=== PATIENT | male | born 1965 | race Caucasian/White ===

== ENCOUNTER 2022-06-08 09:23 | Outpatient (CLI) | payer MEDICARE, SELFPAY ==
[2022-06-08 19:06] LABS: Basophils Absolute Auto 0.1 K/mm3 (0.0-0.1); Basophils Percent Auto 0.7 % (0.2-1.2); Eosinophils Absolute Auto 0.1 K/mm3 (0-0.3); Eosinophils Percent Auto 1.5 % (0-4.4); Hematocrit 50.8 % (42.0-52.0); Hemoglobin 16.7 g/dL (14.0-18.0); Immature Granulocyte Absolute 0.07 K/mm3 (0.00-0.031); Immature Granulocyte Percent A 0.8 % (0-0.5); Lymphocytes Percent Auto 25.2 % (18.3-44.2); Mean Corpuscular HGB Conc 32.9 g/dl (32-36); Mean Corpuscular Hemoglobin 29.5 pg (26-34); Mean Corpuscular Volume 89.8 fl (80-100); Monocytes Absolute Auto 0.5 K/mm3 (0.1-0.6); Monocytes Percent Auto 6.2 % (2.6-8.5); Neutrophils Absolute Auto 5.7 K/mm3 (1.3-6.7); Neutrophils Percent Auto 65.6 % (45.5-73.1); Platelet Count Result 235 k/mm3 (150-375); Red Blood Count 5.66 M/mm3 (4.6-6.20); Red Cell Distribution Width 14.1 % (11.5-14.5); White Blood Count 8.7 K/mm3 (4.5-10.0)
[2022-06-08 19:34] LABS: Rheumatoid Factor < 12.0 IU/ML (<12)
[2022-06-08 19:42] LABS: Vitamin D 25 Hydroxy 55.4 ng/mL
[2022-06-08 19:49] LABS: Erythrocyte Sedimentation Rate 4 mm/hr (0-20)
[2022-06-08 20:23] LABS: Alanine Aminotransferase 37 U/L (6-50); Alkaline Phosphatase 75 U/L (38-126); Anion Gap 6 mmol/L (8-16); Aspartate Amino Transferase 35 U/L (17-59); Bilirubin,Total 0.7 mg/dL (0.2-1.3); Blood Urea Nitrogen 13 mg/dL (9-20); Calcium 9.4 mg/dL (8.4-10.2); Carbon Dioxide 35 mmol/L (22-30); Chloride 101 mmol/L (98-107); Cholesterol 118 mg/dL (0-200); Estimated Glomerular Filt Rate > 60; Glucose 105 mg/dL (65-110); HDL Direct 49 mg/dL; Potassium 4.4 mmol/L (3.4-5.0); Sodium 142 mmol/L (137-145); Triglycerides 40 mg/dL (<150); Uric Acid 8.9 mg/dL (3.5-8.5)
[2022-06-08 20:34] LABS: LDL Cholesterol Direct 47 mg/dL
[2022-06-12 14:04] LABS: Anti Cyclic Citrullinated Pept <16 Units (<20)
== END 2022-06-08 09:24 | disposition home or self-care (01) ==
LOC: ANHGOSHLAB 09:28
PROVIDERS: PCP Family Medicine; Visit Provider Family Medicine
DX: M10.00 Idiopathic gout, unspecified site (principal); M25.50 Pain in unspecified joint; Z79.899 Other long term (current) drug therapy; E78.5 Hyperlipidemia, unspecified; Z12.5 Encounter for screening for malignant neoplasm of prostate; Z13.29 Encounter for screening for other suspected endocrine disorder; E53.8 Deficiency of other specified B group vitamins; E55.9 Vitamin D deficiency, unspecified
CPT/HCPCS: 36415; 80053; 80061; 82306; 82607; 84153; 84443; 84550; 85025; 85652; 86038; 86200; 86430; G0103

== ENCOUNTER 2023-12-11 14:53 | Outpatient (CLI) | payer MEDICARE, SELFPAY ==
[2023-12-11 18:36] LABS: Alanine Aminotransferase 29 U/L (6-50); Albumin Level 4.4 g/dL (3.5-5.1); Alkaline Phosphatase 60 U/L (38-126); Anion Gap 11 mmol/L (4-12); Aspartate Amino Transferase 41 U/L (17-59); Bilirubin,Total 0.4 mg/dL (0.2-1.3); Blood Urea Nitrogen 23 mg/dL (9-20); Calcium 9.4 mg/dL (8.4-10.2); Carbon Dioxide 28 mmol/L (22-30); Chloride 103 mmol/L (98-107); Estimated Glomerular Filt Rate > 60; Glucose 134 mg/dL (65-110); Potassium 4.2 mmol/L (3.4-5.0); Sodium 142 mmol/L (137-145); Uric Acid 8.9 mg/dL (3.5-8.5)
== END 2023-12-11 14:54 | disposition home or self-care (01) ==
LOC: ANHGOSHLAB 14:56
PROVIDERS: PCP Family Medicine; Visit Provider Family Medicine
DX: M10.00 Idiopathic gout, unspecified site (principal); Z79.899 Other long term (current) drug therapy
CPT/HCPCS: 36415; 80053; 84550

== ENCOUNTER 2024-01-02 13:00 | Outpatient (RCR) | payer MEDICARE, SELFPAY ==
--- NOTE | 2023-12-26 13:50 | OTOPEVAL1 ---
Assessment and note entered by LENARD Raya/Bill, CHT Evaluation Information Subjective Information Patient reports bilateral hand pain for the last few years. 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 He is right handed. Tests for RA were negative. He reports bilateral hand pain, stiffness, and weakness that limits his ability to riveter hand, lift, and carry objects. He reports his pain is exacerbated by activity. He takes medication for arthritis. Reported Pain Level Pain Score Moderate Pain: Schrader John Additional Pain Score Comments Patient reports he is not good with 1-10 number scale. He reports no pain at rest and moderate hand pain with use. Assessment OT Clinical Summary Patient referred to OT with bilateral hand pain. Signs and symptoms are consistent with OA. Today he was instructed in active ROM exercises, educated on the benefits of gentle ROM, and educated on avoiding aggressive ROM/repetitive straining. Patient also appeared to benefit from the therapeutic properties of the paraffin bath on bilateral hands. He has a paraffin bath at home. We discussed using this daily in conjunction with ROM HEP. Patient to follow up in 1 week for HEP progression and to assess for discharge. Patient is having ankle surgery in 2 weeks and will be unable to continue to follow up for several weeks after his surgery. Plan of Care Interventions Therapeutic Exercise,Manual Therapy,Therapeutic Activities,Paraffin OT Services Indicated Yes Treatment Frequency and Re-eval in 1 week Duration These treatments will address the objective and functional deficits as defined above. The patient will be advanced safely and appropriately in order for the patient to progress towards his/her prior level of function. Additional exercises will be introduced and as well as a comprehensive home exercise program upon discharge, if needed, ?to ensure carryover of functional gains achieved in the clinic. This treatment plan has been reviewed and agreement upon by the patient.
--- NOTE | 2024-01-02 13:49 | OTOPDC ---
Assessment and note entered by Darrick Black, OTR/L, FABIOLA OT D/C Report 01/02/24 Assessment Status Discharge Subjective Information Patient has been completing paraffin bath treatments and his ROM HEP x1 week. He feels like his pain is slightly improved, however he continues to have pain and discomfort in the IP joints of his fingers when he makes a fist. Therapy only was for 2 visits due to patient having ankle surgery next week. ROM: - hook fist (tip to DPC measurement) improved from 2 cm gap to no gap on the left hand - hook fist improved from 3 cm gap to 2 cm gap for digits II-III and no gap for digits IV-V on the right hand Strength: - patient able to squeeze the dynamometer 5-6 lbs. greater force this date compared to the initial eval - able to progress to light putty strengthening this date Reported Pain Level Additional Pain Score Comments Patient reports he is not good with 1-10 number scale. He reports no pain at rest and moderate hand pain with use. Assessment OT Clinical Summary Patient referred to OT with bilateral hand pain. Signs and symptoms are consistent with OA. He has made progress with functional ROM and bellstand attendant tolerance. HEP was progressed to light strengthening and he was educated on various pain- relieving options for his hands, such as hand massager and compression gloves. At this time the patient is independent with all materials and is being discharged from OT. Plan of Care OT Services Indicated No
== END 2024-01-02 13:59 | disposition home or self-care (01) ==
LOC: ANHGOSHOT 13:00
PROVIDERS: PCP Family Medicine; Visit Provider Family Medicine
DX: M25.541 Pain in joints of right hand (principal); M25.542 Pain in joints of left hand
CPT/HCPCS: 97018; 97110; 97140; 97165

== ENCOUNTER 2024-01-08 11:01 | Outpatient (CLI) | payer MEDICARE, SELFPAY ==
--- NOTE | ~2024-01-08 | US_ITS ---
Anterior right wrist ULTRASOUND Ordering provider: Geneva Gomez History: . R22.31 - Localized swelling, mass and lump, right upper limb . Comparison: None. FINDINGS/impression: Mixed echogenicity lesion measuring 2.3 x 0.7 x 1.3 cm which is seen in the area of the right wrist a nteriorly the differential include ganglion cyst versus abscess versus soft tissue mass versus Inflam ed lymph nodes. Further evaluation advised. Vascularity is seen in the lesion. Reviewed, dictated and finalized at location A. RGIST/IMMUNOLOGIST PHYSICIAN
== END 2024-01-08 11:02 | disposition home or self-care (01) ==
LOC: GOSHIMG 11:02
PROVIDERS: PCP Family Medicine; Visit Provider Physician Assistant Surgical
DX: R93.89 Abnormal findings on diagnostic imaging of other specified body structures (principal); R22.31 Localized swelling, mass and lump, right upper limb
CPT/HCPCS: 76882

== ENCOUNTER 2024-03-05 09:58 | Outpatient (CLI) | payer MEDICARE, SELFPAY ==
--- OUTSIDE RECORDS SUMMARY | 2024-03-07 17:09 | XMS_ITS | Continuity of Care Document ---
Author Organization [facility] Address [address] [place] [address] Phone Care Team Providers Care Field Recruiter Name Role Phone Administrative, Provider Unavailable Unavail [...] Date Provider Providers Copied on Encounter [facility], [address], [id number], [place] tel:[phone] [facility] No Information 8 Administrative Provider. [address] [facility], [address], [place], [place], [id number], [place]. tel:[phone] [facility], [address] [place] [address], [id number], [place] tel:[phone] [facility] No Information 8 Blank Ramos. [address] [facility], [address], [place], [place], [id number], [place]. tel:[phone] Independent Medical Examination [facility], [address], [id number], tel:[phone] [facility] right shoulder (chief complaint) Pain in right shoulder 8 Blank Ramos. [address] [facility] [facility] [address], [place], [place], [id number], [place]. tel:[phone] Independent Medical Examination GABRIEL [facility], [address] [facility] [address], [place], [id number], tel:[phone] [facility] right shoulder (chief complaint) Pain in right shoulder 7 Blank Ramos. [address] [facility], [place] [place] [address], [place], [place], [id number], [place]. tel:[phone] Family History Family Member Type Diagnosis Age At Onset Problem (finding) Family history of gout Problem (finding) Family history of Diabe gary mellitus Problem (finding) Family history of Arthr itis Problem (finding) Family history of Cance r, unknown Payers Payer name Insurance type Covered alliance party ID Authoriza tion(s) No Information Social History [...]
--- OUTSIDE RECORDS SUMMARY | 2024-03-07 17:09 | XMS_ITS | Clinical Summary ---
Author Organization [facility] Medical Office Building [address] Address [address] [place] [address] Care Team Providers Care Juvenile Probation Officer Name Role Phone Kristina Romero MD Primary Care Provider Chloe Lewis BUSINESS SOLUTIONS ANALYST Unavailable Unavailable Susan Pro PT Unavailable Unavailable Allergies No known active allergies Medications allopurinoL (ZYLOPRIM) 100 mg tabletIndication s:prevention of acute gout attack Take 1 tablet (100 mg total) by mouth 2 (two) times a day Active acetaminophen (TYLENOL) 500 mg tabletIndication s:Pain Take 1 tablet (500 mg total) by mouth every 6 (six) hours as needed for pain Active senna-docusate (PERICOLACE) 8.6-50 mg Take 1 tablet by mouth daily 30 tablet 01/09/2024 Active HYDROcodone-acet aminophen (NORCO) 5-325 mg per tabletIndication s:Pain Take 1 tablet by mouth every 4 (four) hours as needed for pain 42 tablet 01/09/2024 Active aspirin 325 mg tabletIndication s:prevention of thrombosis Take 1 tablet (325 mg total) by mouth daily 30 tablet 01/09/2024 Active allopurinoL (ZYLOPRIM) 300 mg tablet Take 1 tablet (300 mg total) by mouth daily 12/12/2023 Active Active Problems Problem Noted Date Diagnosed Date Status post left ankle joint replacement 024 Neuroma 03/07/2023 Acute right ankle pain 12/07/2020 Left ankle pain 11/06/2020 Complex regional pain syndro me type 1 of left lower extremity 11/06/2020 Gout 10/12/2020 Knee pain, right 10/12/2020 Cellulitis 09/14/2020 Assessment & Plan (09/18/2020 11:58 AM CDT): Mr. Carly Lawson is a 55 y.o. male with PMH of R TKA, Gout, s/p left ankle replacement on 07/01/20 presents with c/o pain, redness in L leg. Patient has a h/o left ankle deformity and arthritis. He initially underwent hindfoot deformity correction surgery in 06/2019 with placement of two screws. Subsequently he underwent ankle replacement on 07/01/20with removal of old screws and placement of new hardware. He was doing fine until 6 weeks post surgery when he noticed mild erythema and drainage from mid portion of the surgical wound. Last week he was seen in Ortho clinic for wound check with minor cleaning. Within 24 hours he noticed erythema extending to his knee associated with pain and chills. He was still on PO TMP/SXM when this happened. Considering the rapid progression and lack of streptococcal coverage for TMP/SMX this is most likely streptococcal skin and soft tissue infection. There is no concern for deep infection as per Ortho team. Interim developments: Ortho aspirated his L knee 09/15. Turbid, 22k nucleated cells with 95% PMNs., NGTD. D/W Dr Forman- no c/f deeper infection of the ankle. Pt went to the OR for I&D of the knee. Per op note, cloudy fluid . New cx NGTD, no crystals. Blood cx NGTD Pt is on vanc/ctx. Recommendations: - okay to dc vanc/ctx (done) - start linezolid 600 mg po bid x 14 days (done). After 14 days of linezolid, he should start doxycycline 100 mg po bid x 21 days+ cefadroxil 1000 mg po bid x 21 days. - weekly cbc w/diff, cmp while on linezolid. Please arrange this with HH. - we will arrange ID follow up in our clinic in 3-4 weeks. Please call sooner with any issues. - ID will formally sign off but continue to follow the pt peripherally while in house. - Please call with any questions , concerns, changes in the patients' cultures or clinical status. - See the most recent ID plan of care note for detailed recommendations. Thank you for allowing the bone and joint ID team to assist in the care of your patient. Please call with questions, concerns, changes in the patients cultures or clinical status. Cellulitis of left lower extremity 09/13/2020 Overview (09/17/2020): Added automatically from request for surgery [id number] Assessment & Plan (12/21/2021 9:08 AM JOURNAL BOX INSPECTOR): - Pt completed 1 year of treatment for LLE draining ankle wound and septic arthritis of L knee. Pt was on extended course given retained hardware in L ankle, ID had c/f deeper infection. He stopped his suppressive abx after one year of treatment, approximately 2 months prior to this visit has not noticed any issues since that time. - Given pt is stable over 2 months with no abx, do not recommend restarting suppression. - Labs today for monitoring: CBC, CMP, ESR, CRP - Discussed with patient the rational for treatment, culture results, risk of recurrent infection, signs/symptoms of recurrent infection, and to contact ID clinic with any questions or concerns. Assessment & Plan (06/10/2021 8:19 AM CDT): - Continue cefadroxil 500mg BID for continued suppression of L ankle infection. Though surgery not convinced infection involving hardware, ID had c/f deeper infection (c/f strep involvement despite no growth on Cx). Elected to complete 1 year of treatment then discuss. - Will repeat labs: CBC, CMP, ESR, CRP - Given patients ongoing pain, will reach out to Dr. Su, pt has follow-up next month. - Discussed with patient the rational for treatment, culture results, risk of recurrent infection, signs/symptoms of recurrent infection, and to contact ID clinic with any questions or concerns. Assessment & Plan (12/15/2020 10:59 AM CDT): - Continue Cefadroxil 500mg BID for continued treatment/suppression of L ankle infection. Though surgery not convinced of infection involving joint/hardware, ID had c/f deeper infection (c/f strep involvement despite no grown on Cx). Pt would like to complete 1 year of treatment then discuss stopping. - [facility]ill sent to [facility] - Labs today for monitoring - Discussed with patient the rational for treatment, culture results, risk of recurrent infection, signs/symptoms of recurrent infection, and to contact ID clinic with any questions or concerns. Assessment & Plan (10/13/2020 8:42 AM CDT): - Pt to stop doxycycline as he has completed course of treatment for L ankle cellulitis. - There was some concern for a deeper infection from ID perspective, thus would continue Cefadroxil (c/f strep involvement despite no growth on cultures), for several months of treatment. - Reviewed pt's 10/05/20 labs. - Discussed with patient the rational for treatment, culture results, risk of recurrent infection, signs/symptoms of recurrent infection, and to contact ID clinic with any questions or concerns. Acute pain of left knee 07/21/2020 Primary osteoarthritis of left knee 07/21/2020 Effusion of left knee 07/21/2020 Osteoarthritis of left ankle 06/11/2020 Overview (06/11/2020): Added automatically from request for surgery [id number] Arthritis of left subtalar joint 02/07/2019 Overview (02/07/2019): Added automatically from request for surgery [id number] Encounter for preadmission testing 10/31/2017 Primary osteoarthritis of right knee 07/25/2016 Encounters Date Type Department Care Team Description 02/22/2024 7:21 AM JOURNAL BOX INSPECTOR - 02/22/2024 11:59 PM JOURNAL BOX INSPECTOR Hospital Encounter [facility] [address] [place] [id number] Left ankle pain, unspecified chronicity Discharge Disposition: Discharge to home or self care 02/22/2024 7:20 AM JOURNAL BOX INSPECTOR - 02/22/2024 11:59 PM JOURNAL BOX INSPECTOR Hospital Encounter [facility] [address] [place] [phone] Left foot pain Discharge Disposition: Discharge to home or self care 02/22/2024 7:00 AM JOURNAL BOX INSPECTOR Office Visit [facility] [address] [place] [address] [address] [place] [address] Sae Su MD Left foot pain (Primary Dx); Left ankle pain, unspecified chronicity 02/05/2024 2:10 PM JOURNAL BOX INSPECTOR Office Visit [facility] [address] [place] [address] [address] [place] [phone] Sae Su MD Left ankle pain, unspecified chronicity (Primary Dx) 01/24/2024 10:46 AM JOURNAL BOX INSPECTOR - 01/24/2024 11:59 PM JOURNAL BOX INSPECTOR Hospital Encounter [facility] [address] [place] [phone] Pain in left foot Discharge Disposition: Discharge to home or self care 01/24/2024 10:45 AM JOURNAL BOX INSPECTOR - 01/24/2024 11:59 PM JOURNAL BOX INSPECTOR Hospital Encounter [facility] [address] [place] [phone] Left ankle pain, unspecified chronicity Discharge Disposition: Discharge to home or self care 01/24/2024 10:40 AM JOURNAL BOX INSPECTOR Office Visit [facility] [address] [place] [address] [address] [place] [phone] Sae Su MD Left ankle pain, unspecified chronicity (Primary Dx); Pain in left foot 01/09/2024 7:30 AM JOURNAL BOX INSPECTOR - 01/09/2024 12:15 PM JOURNAL BOX INSPECTOR Surgery [facility] [address] [place] [address] Sae Su MD Left revision ankle replacement with gutter debridement and poly exchange, left medial displacement calcaneal osteoetomy 01/09/2024 7:27 AM JOURNAL BOX INSPECTOR Anesthesia Event [facility] [address] [place] [address] Merlin Urena MD Heuvelman, Katherine Marie, NP 01/09/2024 5:26 AM JOURNAL BOX INSPECTOR - 01/10/2024 11:45 AM JOURNAL BOX INSPECTOR Hospital Encounter [facility] [address] [place] [address] Sae Su MD Status post left ankle joint replacement (Primary Dx) Discharge Disposition: Discharge to home or self care 01/08/2024 Telephone [facility] [address] [facility] 2nd Floor [address] [place] [address] Magy Oconnell CMA from Last 3 Months Immunizations Name Administration Dates Next Due Influenza, Quadrivalent, Spl it, Preservative Free, Intramuscular 11/23/2019,11/18/2017,11/17/2017 Influenza, Trivalent, IM (MDV) 02/26/2013,2013 Influenza, Unspecified 12/04/2023 Surgical History Surgery Date Site/Laterality Comments INGUINAL HERNIA REPAIR Right Hernia repair 1989' TESTICLE SURGERY Right 2010 benign growth removed from testicle ANKLE ARTHROSCOPY 02/13/2007 - 02/13/2008 Left Arthroscopy, ankle, excise defect TOTAL KNEE ARTHROPLASTY 10/30/2017 Right SHOULDER SURGERY 02/14/2016 - 02/12/2017 Right COLONOSCOPY 05/04/2022 INCISION AND DRAINAGE 09/17/2020 Left knee ANKLE HARDWARE REMOVAL 06/13/2020 - 07/13/2020 Left ANKLE ARTHRODESIS 07/09/2019 Left Medical History Medical History Date Comments History of gout Currently treate d with allopurinol Family History Medical History Relation Name Comments Diabetes Father Diabetes mellit us; pacemaker Mother Anesthesia problems Neg Hx Relation Name Status Comments Father Mother Social History Tobacco Use Types Packs/Day Years Used Date Smoking Tobacco: Former Cigarettes 0.5 6 1 1989 Smokeless Tobacco: Never Alcohol Use Standard Drinks/Week Comments Yes 0 (1 standard drink = 0.6 oz pur e alcohol) rare AUDIT-C Answer Date Recorded Q1: How often do you have a drink containing alc ohol? 2-4 times a month 01/09/2024 Q2: How many drinks containi ng alcohol do you have on a typical day when you are drinking? 1 or 2 01/09/2024 Q3: How often do you have si x or more drinks on one occasion? Never 01/09/2024 PHQ-2 Answer Date Recorded PHQ-2 Total Score (If total score is 3 or more points, staff should administer the PHQ-9) 0 07/01/2020 Personal Safety Answer Date Recorded Have you ever been in or are you currently in a harmful physical or emotional relationship or is someone making you feel afraid or unsafe? Denies 01/09/2024 Sex and Gender Information Value Date Recorded Sex Assigned at Not on file Legal Sex Male 3:47 PM JOURNAL BOX INSPECTOR Gender Identity Not on file Sexual Orientation Not on file Obstetrics History Last Filed Vital Signs Vital Sign Reading Time Taken Comments Blood Pressure 136/77 01/10/2024 8:20 AM JOURNAL BOX INSPECTOR Pulse 86 01/10/2024 9:20 AM JOURNAL BOX INSPECTOR Temperature 37 ??C (98.6 ??F) 01/10/2024 8:20 AM JOURNAL BOX INSPECTOR Respiratory Rate 18 01/10/2024 8:20 AM JOURNAL BOX INSPECTOR Oxygen Saturation 91% 01/10/2024 8:20 AM JOURNAL BOX INSPECTOR Inhaled Oxygen Concentration - - Weight 108.9 kg (240 lb) 01/10/2024 8:20 AM JOURNAL BOX INSPECTOR Height 182.9 cm (6') 01/10/2024 8:20 AM JOURNAL BOX INSPECTOR Body Mass Index 32.55 01/10/2024 8:20 AM JOURNAL BOX INSPECTOR Plan of Treatment Health Maintenance Due Date Last Done Comments Colon Cancer Screening-Colonoscopy 1965 Hepatitis C Screening 1965 Prostate Cancer Screening-PSA 1965 DTaP/Tdap/Td Vaccine (1 - Tdap) 07/16/1974 Hepatitis B Screening 07/16/1981 Regular Well Visit/Exam 18-64 07/16/1981 Zoster Vaccine (1 of 2) 07/16/2013 Depression Screening 06/11/2021 06/11/2020, 06/12/19 21 Influenza Vaccine Completed 12/04/2023, , 11/18/2017, Additional history exists Pneumococcal vaccine <65 Aged Out No longer eligible based on patient's age to complete this topic Goals Goal Patient Goal Type Associated Problems Recent Progress Patient-Stated? Author CCM Chronic Pain Care Plan Chronic Care Management Improving( 9:30 AM JOURNAL BOX INSPECTOR) Pau Perez, RN Note: Problem: Chronic Pain Goals: 1. Minimize further functional decline 2. Maximize quality of life 3. Control pain Strategies: - Activity/exercise program recommendation - Conservative stepwise pain medicine strategy with multi-disciplinary approach - Recommend healthy lifestyle strategies and compensatory methods as needed Medical Devices Implanted Type Area Rural Service Engineer Device Identifier Shelf Expiration Date Model / Serial / Lot Orthohelix Maxtorque 7mm 47.5mm Cannulated Self Drill Foot Ankle Petite [id number] - [id number] Implanted:Qty: 1 on 01/09/2024 by Sae Su MD at [facility] Screw Left: Ankle Orthohelix [facility]-- 475P / / Orthohelix Screw Bone Maxtorque Short Thread L47.5 Mm Od5.5 Mm Foot Ankle Self Drill Cannulated Nonsterile [id number] - [id number] Implanted:Qty: 1 on 01/09/2024 by Sae Su MD at [facility] Screw Left: Ankle Orthohelix [facility] [place]- [id number] / / Depuy Orthopaedics Inc [id number] Smartset High Viscosity Cement 40gm Bone Gentamicin - [id number] Implanted:Qty: 1 on 10/30/2017 by Andre Rivera MD at [facility] Right: Knee [employer]uy [employer]opaed[employer] Inc 11/12/2018 [id number] / / [id number] Depuy Orthopaedics Inc [id number] Smartset High Viscosity Cement 40gm Bone Gentamicin - [id number] Implanted:Qty: 1 on 10/30/2017 by Andre Rivera MD at [facility] Right: Knee [employer] 11/12/2018 [id number] / / [id number] Depuy Orthopaed[employer] Inc [id number] Attune Cemented Posterior Stabilize Knee Right 6 Narrow Component - [id number] Implanted:Qty: 1 on 10/30/2017 by Andre Rivera MD at [facility] Right: Knee [employer]uy Orthopaed[employer] Inc 06/13/2027 [id number] / / [id number] Depuy Orthopaedics Inc [id number] Attune S+ Cement Fix Bearing Knee 6 Baseplate Tibial - [id number] Implanted:Qty: 1 on 10/30/2017 by Andre Rivera MD at [facility] Right: Knee [employer] 04/13/2027 [id number] / / [id number] Depuy Orthopaed[employer] Inc [id number] Attune 8mm Posterior Stabilize Fix Bearing Knee 6 Insert Tibial - [id number] Implanted:Qty: 1 on 10/30/2017 by Andre Rievra MD at [facility] Right: Knee [employer] Inc 05/13/2022 [id number] / / [id number] [employer] Inc [id number]-0400 Mini Ignite Power Mix Injectable Graft 4ml Synthetic Tissue - [id number] - [id number] Implanted:Qty: 1 on 07/09/2019 by Sae Su MD at [facility] Left: Ankle [employer] 06/02/2023 [id number] / [id number] / [employer] [id number] Infinity Ankle 4 Long Tray Tibial Adaptis - [id number] Implanted:Qty: 1 on 07/01/2020 by Sae Su MD at [facility] Left: Ankle [employer] [id number] 11/26/2026 [id number] / / [id number] [employer] Inc [id number] Taldome Infinity Adaptis Flatcut Sz3 - [id number] Implanted:Qty: 1 on 07/01/2020 by Sae Su MD at [facility] Left: Ankle [employer] [id number] 05/21/2028 [id number] / / [id number] [employer] Inc [id number] Inbone 9mm Ankle 3+ Implant Fixation Everlast - [id number] Implanted:Qty: 1 on 07/01/2020 by Sae Su MD at [facility] Left: Ankle [employer] [id number] 05/28/2027 [id number] / / [id number] Allosource [id number] 23mm Wedge Frozen Spine Graft Bone Tricortical Ilium - [id number] Implanted:Qty: 1 on 07/01/2020 by Sae Su MD at [facility] Left: Foot Allosource 01/27/2025 [id number] / / [id number] [employer] [id number] Steinmann 5/64in 9in Trocar Point One End Pin Fixation Stainless - [id number] Implanted:Qty: 1 on 07/01/2020 by Sae Su MD at [facility] Left: Foot [employer] [id number] / / Axogen Inc Avance 1-2mm 70mm Allograft Graft Nerve Sterile [id number] - S0 - [id number] Implanted:Qty: 1 on 04/04/2023 by Mani Oseguera MD at [facility] Left: Ankle [employer] Inc 07/13/2025 [id number] / 0 / [id number] Family [employer] Inbone 11mm Ankle 3+ Implant Fixation Everlast [id number] - [id number] Implanted:Qty: 1 on 01/09/2024 by Sae Su MD at [facility] Left: Ankle [employer] 11/09/2029 [id number] / / [id number] Explanted Type Area Rural Service Engineer Device Identifier Shelf Expiration Date Model / Serial / Lot [employer] 1624-509ns Steinmann 3/32mm 9in Trocar Point Pin Fixation Stainless Steel - [id number] Explanted:Qty: 1 on 07/09/2019 at [facility] Left: Ankle [employer] [id number] / / [employer] Inc [id number] K-Wire 1.4mm 228mm Wire Fixation - [id number] Explanted:Qty: 4 on 07/01/2020 at [facility] Left: Ankle [employer] [id number] / / [employer] [id number] Jesus .45in 9in 1 Trocar Point Orthopedic Wire Fixation - [id number] Explanted:Qty: 1 on 07/01/2020 at [facility] Left: Foot [employer] [id number] S / / Orthohelix [id number] Maxtorque 7mm 75mm Cannulated Self Drill Foot Ankle Petite Thread - [id number] Implanted:Qty: 1 on 07/09/2019 by Sae Su MD at [facility] Explanted:Qty: 1 on 07/01/2020 at [facility] Left: Ankle Orthohelix [id number]-010-70 -[id number] / / Orthohelix [id number] Maxtorque 7mm 80mm Cannulated Self Drill Short Thread Screw Bone - [id number] Implanted:Qty: 1 on 07/09/2019 by Sae Su MD at [facility] Explanted:Qty: 1 on 07/01/2020 at [facility] Left: Ankle Orthohelix [facility]-010-70 -[id number] / / Procedures Procedure Name Priority Date/Time Associated Diagnosis Comments ORTHO CASTING/SPLINTING Routine 02/21/19 8:31 AM JOURNAL BOX INSPECTOR Left foot pain XR ANKLE LEFT 3 OR MORE VIEWS Schedule Routine, Read Routine (OP Routine) 02/22/2024 7:30 AM JOURNAL BOX INSPECTOR Left ankle pain, unspecified chronicity XR FOOT LEFT 3 OR MORE VIEWS Schedule Routine, Read Routine (OP Routine) 02/22/2024 7:29 AM JOURNAL BOX INSPECTOR Left foot pain TN CAST SUP SHRT LEG FIBERGLASS Routine 02/05/2024 8:24 AM JOURNAL BOX INSPECTOR Left ankle pain, unspecified chronicity TN APPLICATION SHORT LEG CAST BELOW KNEE-TOE Routine 02/05/2024 8:24 AM JOURNAL BOX INSPECTOR Left ankle pain, unspecified chronicity TN CAST SUP SHRT LEG FIBERGLASS Routine 01/24/2024 12:25 PM JOURNAL BOX INSPECTOR Left ankle pain, unspecified chronicity TN APPLICATION SHORT LEG CAST BELOW KNEE-TOE Routine 01/24/2024 12:25 PM JOURNAL BOX INSPECTOR Left ankle pain, unspecified chronicity XR FOOT LEFT 3 OR MORE VIEWS Schedule Routine, Read Routine (OP Routine) 01/24/2024 10:57 AM JOURNAL BOX INSPECTOR Pain in left foot XR ANKLE LEFT 3 OR MORE VIEWS Schedule Routine, Read Routine (OP Routine) 01/24/2024 10:57 AM JOURNAL BOX INSPECTOR Left ankle pain, unspecified chronicity EGFR Routine 01/09/2024 9:45 PM JOURNAL BOX INSPECTOR DIFFERENTIAL AUTO Routine 01/09/2024 9:4 5 PM JOURNAL BOX INSPECTOR CBC WITH AUTO DIFFERENTIAL Routine 01/09/2024 9:45 PM JOURNAL BOX INSPECTOR BASIC METABOLIC PANEL Routine 01/09/2024 9:45 PM JOURNAL BOX INSPECTOR FL FLUOROSCOPY < 1 HOUR IP Routine 01/09/20 12:10 PM JOURNAL BOX INSPECTOR MYCOBACTERIOLOGY AFB CULTURE AND ACID-FAST STAIN Routine 01/09/2024 9:06 AM JOURNAL BOX INSPECTOR MYCOLOGY (FUNGAL) CULTURE AND STAIN Routine 01/09/2024 9:06 AM JOURNAL BOX INSPECTOR TISSUE AEROBIC AND ANAEROBIC CULTURE AND GRAM STAIN Routine 01/09/2024 9:06 AM JOURNAL BOX INSPECTOR MYCOBACTERIOLOGY AFB CULTURE AND ACID-FAST STAIN Routine 01/09/2024 8:56 AM JOURNAL BOX INSPECTOR MYCOLOGY (FUNGAL) CULTURE AND STAIN Routine 01/09/2024 8:56 AM JOURNAL BOX INSPECTOR TISSUE AEROBIC AND ANAEROBIC CULTURE AND GRAM STAIN Routine 01/09/2024 8:56 AM JOURNAL BOX INSPECTOR MYCOBACTERIOLOGY AFB CULTURE AND ACID-FAST STAIN Routine 01/09/2024 8:47 AM JOURNAL BOX INSPECTOR MYCOLOGY (FUNGAL) CULTURE AND STAIN Routine 01/09/2024 8:47 AM JOURNAL BOX INSPECTOR TISSUE AEROBIC AND ANAEROBIC CULTURE AND GRAM STAIN Routine 01/09/2024 8:47 AM JOURNAL BOX INSPECTOR TN AN PROCEDURE PLACEHOLDER Routine 01/09/2024 8:06 AM JOURNAL BOX INSPECTOR TN AN ELECTIVE ENDOTRACHEAL AIRWAY Routine 01/09/2024 8:06 AM JOURNAL BOX INSPECTOR OSTEOTOMY CALCANEUS 01/09/2024 7 :32 AM JOURNAL BOX INSPECTOR Deformity of ankle joint, right Case Notes 06/15: Message sent blank dpc -bt ARTHROPLASTY TOTAL ANKLE 01/09/2024 7:32 AM JOURNAL BOX INSPECTOR Deformity of ankle joint, right Case Notes 06/15: Message sent blank dpc -bt from Last 3 Months Results * Ortho Casting/Splinting Documentation (02/22/2024 8:31 AM JOURNAL BOX INSPECTOR) Narrative Teresita Simon MS - 02/22/2024 8:31 AM JOURNAL BOX INSPECTOR Teresita Simon MS ? 02/22/2024 ??8:31 AM Ortho Casting/Splinting Documentation Date/Time: 02/22/2024 8:31 AM Performed by: Teresita Simon MS Authorized by: Sae Su MD ?? Sensation: ??Normal Skin Condition: ??Clean, dry, and intact Gael/Sutures Removed: No ?? Pin Pulled: No ?? Cast Removed: Yes (Removed by Charan Pedersen) ?? Cast Applied: No (Patient went into their own boot.) ?? Overwrap: No ?? Location: ??Ankle Ankle: ??L ankle Supplies: ??Cast removal only Capillary Refill: ??Normal Patient tolerance of procedure: ??Tolerated well, no immediate complications us Sae Su MD IN CLINIC/BEDSIDE DINA CLINE Final Result * XR Ankle Left 3 or More Views (02/22/2024 7:30 AM JOURNAL BOX INSPECTOR) Anatomical Region Laterality Modality Lower Extremities, Ankle Left Compute d Radiography 02/22/2024 7:41 AM JOURNAL BOX INSPECTOR Impressions 02/22/2024 7:41 AM JOURNAL BOX INSPECTOR Revision left total ankle arthroplasty in near-anatomic position. ??Healing instrumented calcaneal osteotomy. Electronically signed by: Aryan Spangler M.D. Narrative 02/22/2024 7:41 AM JOURNAL BOX INSPECTOR EXAMINATION: XR FOOT LEFT 3 OR MORE VIEWS, XR ANKLE LEFT 3 OR MORE VIEWS HISTORY: Foot and ankle pain FINDINGS: 3 views of the left foot and left ankle were performed with comparison made to 01/24/2024. ??There is a left total ankle arthroplasty is noted in near-anatomic position. ??There is no periprosthetic lucency or fracture. ??There is an instrumented healing calcaneal osteotomy. ??There is a healed subtalar arthrodesis. ??There is a heel spur. ??There is mild mid foot osteoarthritis. ??There is mild forefoot osteoarthritis. ??There is no acute fracture. Procedure Note Aryan Spangler MD PhD - 02/22/2024 EXAMINATION: XR FOOT LEFT 3 OR MORE VIEWS, XR ANKLE LEFT 3 OR MORE VIEWS HISTORY: Foot and ankle pain FINDINGS: 3 views of the left foot and left ankle were performed with comparison made to 01/24/2024. There is a left total ankle arthroplasty is noted in near-anatomic position. There is no periprosthetic lucency or fracture. There is an instrumented healing calcaneal osteotomy. There is a healed subtalar arthrodesis. There is a heel spur. 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 There is no acute fracture. IMPRESSION: Revision left total ankle arthroplasty in near-anatomic position. Healing instrumented calcaneal osteotomy. Electronically signed by: Aryan Spangler M.D. Sae Su MD IMG XR PROCEDURES Chata l Result * XR Foot Left 3 or More Views (02/22/2024 7:29 AM JOURNAL BOX INSPECTOR) Anatomical Region Laterality Modality Lower Extremities, Foot Left Computed Radiography 02/22/2024 7:41 AM JOURNAL BOX INSPECTOR Impressions 02/22/2024 7:41 AM JOURNAL BOX INSPECTOR Revision left total ankle arthroplasty in near-anatomic position. ??Healing instrumented calcaneal osteotomy. Electronically signed by: Aryan Spangler M.D. Narrative 02/22/2024 7:41 AM JOURNAL BOX INSPECTOR EXAMINATION: XR FOOT LEFT 3 OR MORE VIEWS, XR ANKLE LEFT 3 OR MORE VIEWS HISTORY: Foot and ankle pain FINDINGS: 3 views of the left foot and left ankle were performed with comparison made to 01/24/2024. ??There is a left total ankle arthroplasty is noted in near-anatomic position. ??There is no periprosthetic lucency or fracture. ??There is an instrumented healing calcaneal osteotomy. ??There is a healed subtalar arthrodesis. ??There is a heel spur. ??There is mild mid foot osteoarthritis. ??There is mild forefoot osteoarthritis. ??There is no acute fracture. Procedure Note Aryan Spangler MD PhD - 02/22/2024 EXAMINATION: XR FOOT LEFT 3 OR MORE VIEWS, XR ANKLE LEFT 3 OR MORE VIEWS HISTORY: Foot and ankle pain FINDINGS: 3 views of the left foot and left ankle were performed with comparison made to 01/24/2024. There is a left total ankle arthroplasty is noted in near-anatomic position. There is no periprosthetic lucency or fracture. There is an instrumented healing calcaneal osteotomy. There is a healed subtalar arthrodesis. There is a heel spur. 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 There is no acute fracture. IMPRESSION: Revision left total ankle arthroplasty in near-anatomic position. Healing instrumented calcaneal osteotomy. Electronically signed by: Aryan Spangler M.D. us Sae Su MD IMG XR PROCEDURES Chata l Result * TN APPLICATION SHORT LEG CAST BELOW KNEE-TOE, TN CAST SUP SHRT LEG FIBERGLASS (02/05/2024 8:24 AM JOURNAL BOX INSPECTOR) Narrative Teresita Simon MS - 02/05/2024 8:24 AM JOURNAL BOX INSPECTOR Teresita Simon MS ? 02/21/2024 ??8:24 AM Ortho Casting/Splinting Documentation Date/Time: 02/05/2024 8:24 AM Performed by: Oliverio Lou Authorized by: Sae Su MD ?? Sensation: ??Normal Skin Condition: ??Clean, dry, and intact Gael/Sutures Removed: No ?? Pin Pulled: No ?? Cast Removed: Yes ?? Cast Applied: Yes ?? Overwrap: No ?? Location: ??Ankle Ankle: ??L ankle Cast type: ??Short leg non weightbearing cast Supplies: ??Fiberglass Additional Supplies: ??Cotton padding, cotton stocking/sleeve, felt malleolar pads and felt tibia pads Number of fiberglass rolls used: ??5 Capillary Refill: ??Normal Patient tolerance of procedure: ??Tolerated well, no immediate complications us Sae Su MD IN CLINIC/BEDSIDE DINA CLINE Final Result * TN APPLICATION SHORT LEG CAST BELOW KNEE-TOE, TN CAST SUP SHRT LEG FIBERGLASS (01/24/2024 12:25 PM JOURNAL BOX INSPECTOR) Narrative Sae Su MD - 01/24/2024 12:25 PM JOURNAL BOX INSPECTOR Sae Su MD ? 01/28/2024 12:59 AM Ortho Casting/Splinting Documentation Date/Time: 01/24/2024 12:25 PM Performed by: Charan Alvarez BS Authorized by: Sae Su MD ?? Sensation: ??Normal Skin Condition: ??Clean, dry, and intact Gael/Sutures Removed: Yes ?? Cast Removed: Yes ?? Cast Applied: Yes ?? Location: ??Foot Foot: ??L foot Cast type: ??Short leg non weightbearing cast Supplies: ??Fiberglass Additional Supplies: ??Cotton stocking/sleeve, cotton padding, felt malleolar pads, felt padding, xeroform, gauze and felt tibia pads Number of fiberglass rolls used: ??5 Capillary Refill: ??Normal Patient tolerance of procedure: ??Tolerated well, no immediate complications us Sae Su MD IN CLINIC/BEDSIDE DINA CLINE Edited Result - Final * XR Foot Left 3+ View (01/24/2024 10:57 AM JOURNAL BOX INSPECTOR) Anatomical Region Laterality Modality Lower Extremities, Foot Left Computed Radiography 01/24/2024 4:10 PM JOURNAL BOX INSPECTOR Impressions 01/24/2024 9:23 PM JOURNAL BOX INSPECTOR Revision left total ankle arthroplasty in expected position with healing interval instrumented calcaneal osteotomy and surrounding soft tissue swelling. Dictated by: Avis Vega MD, MPH The radiology attending physician has personally reviewed this study, and had reviewed and/or edited this written report and agrees with it. Electronically signed by: Saji Hdz MD Narrative 01/24/2024 9:23 PM JOURNAL BOX INSPECTOR EXAMINATION: ??XR ANKLE LEFT 3 OR MORE VIEWS, XR FOOT LEFT 3 OR MORE VIEWS HISTORY: Left ankle and foot pain FINDINGS: 3 radiographs each of the left ankle and foot are obtained for interpretation. ??Comparison is made to CT 10/23/2023, radiographs 06/26/2023 and 02/22/2023. There is a revised left total ankle arthroplasty in expected position. No acute periprosthetic fracture or osteolysis. Instrumentation is intact. ??Interval calcaneal osteotomy transfixed by 2 partially threaded screws. Interval debridement along the dorsal talonavicular joint. Unchanged healed subtalar arthrodesis. Unchanged heterotopic ossification adjacent to the medial and posterior malleolus, as well as along the anterior ankle joint. No acute fracture or dislocation. Unchanged mild polyarticular midfoot osteoarthritis. Plantar calcaneal spur. Mild soft tissue swelling about the left ankle. Procedure Note Elif Hdz MD - 01/24/2024 EXAMINATION: XR ANKLE LEFT 3 OR MORE VIEWS, XR FOOT LEFT 3 OR MORE VIEWS HISTORY: Left ankle and foot pain FINDINGS: 3 radiographs each of the left ankle and foot are obtained for interpretation. Comparison is made to CT 10/23/2023, radiographs 06/26/2023 and 02/22/2023. There is a revised left total ankle arthroplasty in expected position. No acute periprosthetic fracture or osteolysis. Instrumentation is intact. Interval calcaneal osteotomy transfixed by 2 partially threaded screws. Interval debridement along the dorsal talonavicular joint. Unchanged healed subtalar arthrodesis. Unchanged heterotopic ossification adjacent to the medial and posterior malleolus, as well as along the anterior ankle joint. No acute fracture or dislocation. Unchanged mild polyarticular midfoot osteoarthritis. Plantar calcaneal spur. Mild soft tissue swelling about the left ankle. IMPRESSION: Revision left total ankle arthroplasty in expected position with healing interval instrumented calcaneal osteotomy and surrounding soft tissue swelling. Dictated by: Avis Vega MD, MPH The radiology attending physician has personally reviewed this study, and had reviewed and/or edited this written report and agrees with it. Electronically signed by: Saji Hdz MD us Sae Su MD IMG XR PROCEDURES Chata l Result * XR Ankle Left 3+ View (01/24/2024 10:57 AM JOURNAL BOX INSPECTOR) Anatomical Region Laterality Modality Lower Extremities, Ankle Left Compute d Radiography 01/24/2024 4:10 PM JOURNAL BOX INSPECTOR Impressions 01/24/2024 9:23 PM JOURNAL BOX INSPECTOR Revision left total ankle arthroplasty in expected position with healing interval instrumented calcaneal osteotomy and surrounding soft tissue swelling. Dictated by: Avis Vega MD, MPH The radiology attending physician has personally reviewed this study, and had reviewed and/or edited this written report and agrees with it. Electronically signed by: Saji Hdz MD Narrative 01/24/2024 9:23 PM JOURNAL BOX INSPECTOR EXAMINATION: ??XR ANKLE LEFT 3 OR MORE VIEWS, XR FOOT LEFT 3 OR MORE VIEWS HISTORY: Left ankle and foot pain FINDINGS: 3 radiographs each of the left ankle and foot are obtained for interpretation. ??Comparison is made to CT 10/23/2023, radiographs 06/26/2023 and 02/22/2023. There is a revised left total ankle arthroplasty in expected position. No acute periprosthetic fracture or osteolysis. Instrumentation is intact. ??Interval calcaneal osteotomy transfixed by 2 partially threaded screws. Interval debridement along the dorsal talonavicular joint. Unchanged healed subtalar arthrodesis. Unchanged heterotopic ossification adjacent to the medial and posterior malleolus, as well as along the anterior ankle joint. No acute fracture or dislocation. Unchanged mild polyarticular midfoot osteoarthritis. Plantar calcaneal spur. Mild soft tissue swelling about the left ankle. Procedure Note Elif Hdz MD - 01/24/2024 EXAMINATION: XR ANKLE LEFT 3 OR MORE VIEWS, XR FOOT LEFT 3 OR MORE VIEWS HISTORY: Left ankle and foot pain FINDINGS: 3 radiographs each of the left ankle and foot are obtained for interpretation. Comparison is made to CT 10/23/2023, radiographs 06/26/2023 and 02/22/2023. There is a revised left total ankle arthroplasty in expected position. No acute periprosthetic fracture or osteolysis. Instrumentation is intact. Interval calcaneal osteotomy transfixed by 2 partially threaded screws. Interval debridement along the dorsal talonavicular joint. Unchanged healed subtalar arthrodesis. Unchanged heterotopic ossification adjacent to the medial and posterior malleolus, as well as along the anterior ankle joint. No acute fracture or dislocation. Unchanged mild polyarticular midfoot osteoarthritis. Plantar calcaneal spur. Mild soft tissue swelling about the left ankle. IMPRESSION: Revision left total ankle arthroplasty in expected position with healing interval instrumented calcaneal osteotomy and surrounding soft tissue swelling. Dictated by: Avis Vega MD, MPH The radiology attending physician has personally reviewed this study, and had reviewed and/or edited this written report and agrees with it. Electronically signed by: Saji Hdz MD us Sae Su MD IMG XR PROCEDURES Chata l Result * eGFR (01/09/2024 9:45 PM JOURNAL BOX INSPECTOR) eGFR 83 >=60 mL/min/1. 73 m2 Comment: Interpretive Data Reference Interval Normal ?>/= 90 mL/min/1.73m2 Mildly decreased* ? 60 - 89 mL/min/1.73m2 Mildly to moderately decreased ?45 - 59 mL/min/1.73m2 Moderately to severely decreased ??30 - 44 mL/min/1.73m2 Severely decreased ?15 - 29 mL/min/1.73m2 Kidney Failure ?< 15 ??mL/min/1.73m2 *Relative to young adult level Estimated glomerular filtration rate is determined by the 2020 CKD-EPI equation recommended by the National Kid[employer] (A Unifying Approach to GFR Estimation: Recommendations of the NKF-ASK Task Force on Reassessing the Inclusion of Race in Diagnosing Kidney Disease, JASN 2020). The CKD-EPI equation should not be used for patients with unstable renal function and has not been validated in children and those over 70. Current interpretive data was last reviewed 2020. Blood 01/09/2024 9:45 PM JOURNAL BOX INSPECTOR 01/09/2024 10:26 PM JOURNAL BOX INSPECTOR us Halley Shields NP LAB BLOOD ORDERABLES Final Result [facility] [place] [address] * (ABNORMAL) Differential, auto (01/09/2024 9:45 PM JOURNAL BOX INSPECTOR) Neutrophil abs 12.8(H) 1.5 - 6.5 K/cumm Imm gran abs 0.1 0.0 - 0.1 K/cumm [facility] Lymphocyte abs 1.4 0.8 - 3.3 K/cumm [facility] Monocyte abs 1.1(H) 0.2 - 0.8 K/cumm [facility] Eosinophil abs 0.0 0.0 - 0.5 K/cumm [facility] Basophil abs 0.0 0.0 - 0.1 K/[facility] Neutrophil pct 82.8 % [facility] Comment: Interpretive Data Percent cell count reference ranges are not reported, since discordance with absolute values may lead to misinterpretation of CBC data. Current Interpretive Data was last revised on 2017. Imm gran pct 0.7 % [facility] Comment: Interpretive Data Percent cell count reference ranges are not reported, since discordance with absolute values may lead to misinterpretation of CBC data. Current Interpretive Data was last revised on 2017. Lymphocyte pct 9.2 % [facility] Comment: Interpretive Data Percent cell count reference ranges are not reported, since discordance with absolute values may lead to misinterpretation of CBC data. Current Interpretive Data was last revised on 2017. Monocyte pct 7.1 % [facility] Comment: Interpretive Data Percent cell count reference ranges are not reported, since discordance with absolute values may lead to misinterpretation of CBC data. Current Interpretive Data was last revised on 2017. Eosinophil pct 0.0 % [facility] Comment: Interpretive Data Percent cell count reference ranges are not reported, since discordance with absolute values may lead to misinterpretation of CBC data. Current Interpretive Data was last revised on 2017. Basophil pct 0.2 % [facility] Comment: Interpretive Data Percent cell count reference ranges are not reported, since discordance with absolute values may lead to misinterpretation of CBC data. Current Interpretive Data was last revised on 2017. Blood 01/09/2024 9:45 PM JOURNAL BOX INSPECTOR 01/09/2024 10:25 PM JOURNAL BOX INSPECTOR Halley Shields NP LAB BLOOD ORDERABLES Final Result [facility] [place] [address] * (ABNORMAL) CBC with auto differential (01/09/2024 9:45 PM JOURNAL BOX INSPECTOR) WBC 15.4(H) 3.8 - 9.9 K/cumm Hgb 14.5 13.0 - 17.5 g/dL [facility] Hct 43.9 38.9 - 50.3 % [facility] Plt 208 150 - 400 K/cumm [facility] MPV 9.4 9.1 - 12.3 fL [facility] RBC 4.87 4.30 - 5.80 M/cumm [facility] MCV 90.1 81.3 - 96.4 fL [facility] MCH 29.8 27.1 - 33.3 pg [facility] MCHC 33.0 32.3 - 35.7 g/dL [facility] RDW CV 13.8 11.1 - 14.9 % [facility] RDW SD 46.2 35.7 - 48.1 fL [facility] NRBC abs 0.00 0.00 - 0.01 K/cumm [facility] Blood 01/09/2024 9:45 PM JOURNAL BOX INSPECTOR 01/09/2024 10:25 PM JOURNAL BOX INSPECTOR Halley Shields NP LAB BLOOD ORDERABLES Final Result [facility] [place] [address] * Basic metabolic panel (01/09/2024 9:45 PM JOURNAL BOX INSPECTOR) Sodium 140 135 - 145 mmol/L Potassium, pl 4.5 3.3 - 4.9 mmol/L [facility] Chloride 102 97 - 110 mmol/L [facility] CO2 30 22 - 32 mmol/L [facility] Anion gap 8 2 - 15 mmol/L [facility] BUN 15 6 - 25 mg/dL [facility] Creatinine 1.03 0.80 - 1.30 mg/dL [facility] Glucose 104 70 - 199 mg/dL [facility] Comment: Interpretive Data Fasting glucose >/= 126 mg/dl is diagnostic for diabetes. ?? Fasting is defined as no caloric intake for at least 8 hours. Fasting glucose between 100 mg/dl to 125 mg/dl is diagnostic of prediabetes. In a patient with classic symptoms of hyperglycemia or hyperglycemic crisis, a random glucose >/= 200 mg/dl is diagnostic for diabetes. In the absence of unequivocal hyperglycemia, results should be confirmed by repeat testing. The classification and Diagnosis of Diabetes Diabetes Care 2021; 46: S19-S40. Current interpretive data was last revised 2022. Calcium 8.7 8.5 - 10.3 mg/dL [facility] Blood 01/09/2024 9:45 PM JOURNAL BOX INSPECTOR 01/09/2024 10:26 PM JOURNAL BOX INSPECTOR us Halley Shields LENS COATING TECHNICIAN LAB BLOOD ORDERABLES Final Result [facility] [place] [address] * FL Fluoroscopy < 1 Hour (01/09/2024 12:10 PM JOURNAL BOX INSPECTOR) Narrative [facility] - 01/09/2024 12:10 PM JOURNAL BOX INSPECTOR The images from this study are not interpreted by Radiology. ??Please refer to the physician's procedure / OR operative note. us Sae Su MD IMG FLUOROSCOPY PROCED URES Final Result [id number] * Tissue aerobic and anaerobic culture and gram stain Tissue Ankle, left (01/09/2024 9:06 AM JOURNAL BOX INSPECTOR) Direct Specimen Exam Stain: Rare polymorphonuclear leukocytes seen. No organisms seen. Report Final Report: No growth [facility] Tissue (Ankle, left) 01/09/2024 9:06 AM JOURNAL BOX INSPECTOR 01/09/2024 2:04 PM JOURNAL BOX INSPECTOR Narrative [facility] - 01/14/2024 9:47 AM JOURNAL BOX INSPECTOR Left Ankle Anterior Joint Specimen received in anaerobic transport media. Testing performed by [facility] ([phone]) Specimens submitted from normally sterile body sites will have all bacterial morphotypes identified. Specimens that contain grossly mixed misty and/or are from body sites that are not normally sterile will be examined for Staphylococcus aureus, Pseudomonas aeruginosa, beta-hemolytic strep, vancomycin-resistant Enterococcus, Bacteroides, Parabacteroides, Clostridium perfringens and fungus. If any of these are isolated, the organism will be reported. Current interpretive data was last revised on 2019. Sae Su MD LAB MICROBIOLOGY - GEN ERAL ORDERABLES Final Result Performing Organization Address City/[facility]/ZIP Co de Phone Number JAYA [facility] [place] [address] * Mycology (fungal) culture and stain Tissue Ankle, left (01/09/2024 9:06 AM JOURNAL BOX INSPECTOR) Direct Specimen Exam Stain: No Fungal elements seen. Report Final Report: No growth of fungus [facility] Tissue (Ankle, left) 01/09/2024 9:06 AM JOURNAL BOX INSPECTOR 01/09/2024 2:04 PM JOURNAL BOX INSPECTOR Narrative [facility]A [facility] - 02/06/2024 10:50 AM JOURNAL BOX INSPECTOR Left Ankle Anterior Joint Specimen received in anaerobic transport media. Testing performed by [facility] ([phone]). Sae Su MD LAB MICROBIOLOGY - GEN ERAL ORDERABLES Final Result Performing Organization Address [facility] de Phone Number JAYA [facility] [place] [address] * Tissue aerobic and anaerobic culture and gram stain Tissue Ankle, left (01/09/2024 8:56 AM JOURNAL BOX INSPECTOR) Direct Specimen Exam Stain: No polymorphonuclear leukocytes seen. No organisms seen. Report Final Report: No growth [facility] Tissue (Ankle, left) 01/09/2024 8:56 AM JOURNAL BOX INSPECTOR 01/09/2024 1:43 PM JOURNAL BOX INSPECTOR Narrative [facility]A [facility] - 01/14/2024 9:48 AM JOURNAL BOX INSPECTOR Left Ankle Medial Gutter Specimen received in anaerobic transport media. Testing performed by [facility] ([phone]) Specimens submitted from normally sterile body sites will have all bacterial morphotypes identified. Specimens that contain grossly mixed misty and/or are from body sites that are not normally sterile will be examined for Staphylococcus aureus, Pseudomonas aeruginosa, beta-hemolytic strep, vancomycin-resistant Enterococcus, Bacteroides, Parabacteroides, Clostridium perfringens and fungus. If any of these are isolated, the organism will be reported. Current interpretive data was last revised on 2019. Sae Su MD LAB MICROBIOLOGY - GEN ERAL ORDERABLES Final Result Performing Organization Address [facility] Co de Phone Number JAYA [facility] [place] [address] * Mycology (fungal) culture and stain Tissue Ankle, left (01/09/2024 8:56 AM JOURNAL BOX INSPECTOR) Direct Specimen Exam Stain: No Fungal elements seen. Report Final Report: No growth of fungus [facility] Tissue (Ankle, left) 01/09/2024 8:56 AM JOURNAL BOX INSPECTOR 01/09/2024 1:43 PM JOURNAL BOX INSPECTOR Narrative [facility]A [facility] - 02/06/2024 10:51 AM JOURNAL BOX INSPECTOR Left Ankle Medial Gutter Specimen received in anaerobic transport media. Testing performed by [facility] ([phone]). Sae Su MD LAB MICROBIOLOGY - GEN ERAL ORDERABLES Final Result Performing Organization Address [facility] Co de Phone Number JAYA [facility] [place] [address] * Tissue aerobic and anaerobic culture and gram stain Tissue Ankle, left (01/09/2024 8:47 AM JOURNAL BOX INSPECTOR) Direct Specimen Exam Stain: No polymorphonuclear leukocytes seen. No organisms seen. Report Final Report: No growth [facility] Tissue (Ankle, left) 01/09/2024 8:47 AM JOURNAL BOX INSPECTOR 01/09/2024 2:07 PM JOURNAL BOX INSPECTOR Narrative [facility] - 01/14/2024 9:46 AM JOURNAL BOX INSPECTOR Left Ankle Joint Capsule Specimen received in anaerobic transport media. Testing performed by [facility] ([phone]) Specimens submitted from normally sterile body sites will have all bacterial morphotypes identified. Specimens that contain grossly mixed misty and/or are from body sites that are not normally sterile will be examined for Staphylococcus aureus, Pseudomonas aeruginosa, beta-hemolytic strep, vancomycin-resistant Enterococcus, Bacteroides, Parabacteroides, Clostridium perfringens and fungus. If any of these are isolated, the organism will be reported. Current interpretive data was last revised on 2019. Sae Su MD LAB MICROBIOLOGY - GEN ERAL ORDERABLES Final Result Performing Organization Address [facility] Co de Phone Number [facility] Department [place] [address] * Mycology (fungal) culture and stain Tissue Ankle, left (01/09/2024 8:47 AM JOURNAL BOX INSPECTOR) Direct Specimen Exam Stain: No Fungal elements seen. Report Final Report: No growth of fungus [facility] Tissue (Ankle, left) 01/09/2024 8:47 AM JOURNAL BOX INSPECTOR 01/09/2024 2:07 PM JOURNAL BOX INSPECTOR Narrative [facility] - 02/06/2024 10:50 AM JOURNAL BOX INSPECTOR Left Ankle Joint Capsule Specimen received in anaerobic transport media. Testing performed by [facility] ([phone]). us Sae Su MD LAB MICROBIOLOGY - GEN ERAL ORDERABLES Final Result [facility] [place] [address] * TN AN ELECTIVE ENDOTRACHEAL AIRWAY, TN AN PROCEDURE PLACEHOLDER (01/09/2024 8:06 AM JOURNAL BOX INSPECTOR) Narrative Stew Doyle CRNA - 01/09/2024 8:06 AM JOURNAL BOX INSPECTOR Stew Doyle CRNA ? 01/09/2024 ??8:07 AM Airway Patient location: OR Urgency: elective Indications for airway management: anesthesia Difficult airway: no Staff: Placed by: SPOT BILLING CLERK: Stew Doyle CRNA Emergent airway documentation: Risks and benefits discussed: yes Consent obtained: yes Consent given by: patient Airway prep: Preoxygenated: yes Patient position: sniffing Mask difficulty assessment: 1 - vent by mask Spontaneous ventilation during airway: absent Sedation level during airway: GA Final airway details: Final airway type: endotracheal airway Tube type: ETT ETT size: 8.0 mm Cuffed: yes Technique used for successful ETT placement: video laryngoscopy Devices/Methods used in placement: cricoid pressure and stylet Insertion site: oral Blade type: Jeffrey Video blade type: Harper Blade size: 4 Cormack-Lehane (video): grade IIa - partial view of glottis Initial cuff pressure: 28 cm H2O Cuff volume: 8 mL Cuff inflated with: air ETT to lips: 24 cm Placement verified by: auscultation and CO2 detection Airway secured with: silk tape Number of attempts: 1 us Merlin Urena MD ANESTHESIA ORDERABLES Final Res ult from Last 3 Months Insurance [employer] [place] [employer] PPO [employer] OPEN ACCESS [employer] Member Subscriber Plan / Payer (Ef fective 2020-Present) Name:Carly Lawson Member ID:[id number] Relation to Subscriber:Self Name:Carly Lawson Annie Subscriber ID:[id number] Payer ID:[id number] ([facility]) Group ID:[id number] Type:COMMERCIAL [facility] [facility] Subscriber Plan / Payer (Ef fective 2002-Present) Name:Carly Lawson Annie Relation to Subscriber:Self Name:Carly Lawson Payer ID:[id number] ([facility]) Group ID:[id number] Type:CIG HMO/PPO Address: [facility] [id number] [place] [address] [facility] MEDICARE GROUP ADMINISTRATORS [place] Member Subscriber Plan / Payer (Ef fective 2021-Present) Name:Carly Lawson Relation to Subscriber:Self Name:Carly Lawson Payer ID:[id number] Group ID:[id number] Type:COMMERCIAL Address: [address] [address] [place] [address] MEDICARE GROUP ADMINISTRATORS [place] Member Subscriber Plan / Payer (Ef fective 2018-Present) Name:Carly Lawson Relation to Subscriber:Self Name:Carly Lawson Payer ID:[id number] Group ID:[id number] Type:COMMERCIAL Address: [address] [address] [place] [address] Advance Directives For more information, please contact: [phone] * Full Code (Latest Code Status on File) Date Activated Date Inactivated Comments 01/09/2024 5:02 PM 01/10/2024 3:46 PM * Full Code Date Activated Date Inactivated Comments 09/13/2020 7:52 PM 09/18/2020 10:37 PM * Full Code Date Activated Date Inactivated Comments 07/01/2020 6:48 PM 07/02/2020 2:20 PM * Full Code Date Activated Date Inactivated Comments 07/09/2019 2:06 PM 07/10/2019 4:15 PM * Full Code Date Activated Date Inactivated Comments 11/01/2017 5:22 PM 07/09/2019 5:25 AM Care Teams Juvenile Probation Officer Relationship Specialty Start Date End Date Kristina Romero MD PCP - General 10/03/17 Chloe Lewis, BUSINESS SOLUTIONS ANALYST Editing Computer Publisher Physical Therapy 10/20/17 Susan Pro, PT Physical Therapist Physical Therapy 11/06/17
--- OUTSIDE RECORDS SUMMARY | 2024-03-07 17:09 | XMS_ITS | Encounter Summary ---
Author Organization [facility] Healthcare Address [address] [place] [address] Care Team Providers Care Biological Chemist Name Role Phone Kristina Romero MD Primary Care Provider Chloe Lewis PTA Unavailable Unavailable Susan Pro PT Unavailable Unavailable Encounter Details Date Type Department Care Team (Late st Contact Info) Description 10/20/2020 Telephone [facility] [address] [facility] [address] [place] [address] Shandra Smith MD PhD [address] [facility] [id number] [place], [place] [id number] Social History Tobacco Use Types Packs/Day Years Used Date Smoking Tobacco: Former Cigarettes 0.5 6 1 984 - 1990 Smokeless Tobacco: Never Alcohol Use Standard Drinks/Week Comments Yes 0 (1 standard drink = 0.6 oz pur e alcohol) rare AUDIT-C Answer Date Recorded Q1: How often do you have a drink containing alc ohol? Monthly or less 07/01/2020 Q2: How many drinks containi ng alcohol do you have on a typical day when you are drinking? 1 or 2 07/01/2020 Q3: How often do you have si x or more drinks on one occasion? 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
--- OUTSIDE RECORDS SUMMARY | 2024-03-07 17:09 | XMS_ITS | Clinical Summary ---
Author Organization [facility] Address [address] [facility], [address] [address] Phone Care Team Providers Care Transfer Engineer Name Role Phone Kristina Romero MD Primary Care Provider Allergies No known active allergies Medications ALLOPURINOL PO Take by mouth as needed. Active Naproxen (NAPROSYN PO) Take by mouth. Active ibuprofen (MOTRIN) 200 MG Tablet Take 200 mg by mouth every 8 hours as needed. Active Active Problems Problem Noted Date Diagnosed Date Knee pain, right Gout Immunizations Immunization Administration Dates Next Due Influenza Vaccine greater than 3 yrs 02/13/2013 Family History Medical History Relation Name Comments Diabetes Father Cancer Mother BREAST Colon Cancer Mother POSSIBLE. HAD P ART OF COLON REMOVED Relation Name Status Comments Father Mother Social History Tobacco Use Types Packs/Day Years Used Date Smoking Tobacco: Former Cigarettes Q uit: 1999 Smokeless Tobacco: Former Chew Quit: 1999 Tobacco Cessation:Counseling Given: Not Answered Alcohol Use Standard Drinks/Week Comments Not Asked 0 (1 standard drink = 0.6 oz pur e alcohol) VERY SELDOM Sex and Gender Information Value Date Recorded Sex Assigned at Not on file Legal Sex Male 7:30 PM CDT Gender Identity Not on file Sexual Orientation Not on file Last Filed Vital Signs Vital Sign Reading Time Taken Comments Blood Pressure 121/88 05/04/2022 12:42 PM CDT Pulse 82 05/04/2022 12:42 PM CDT Temperature 36 ??C (96.8 ??F) 05/04/2022 12:42 PM CDT Respiratory Rate 19 05/04/2022 12:42 PM CDT Oxygen Saturation 100% 05/04/2022 12:42 PM CDT Inhaled Oxygen Concentration - - Weight 108.9 kg (240 lb) 04/15/2022 9:00 AM ADVERTISING ACCOUNT EXECUTIVE Height 180.3 cm (5' 11 ) 04/15/2022 9:00 AM ADVERTISING ACCOUNT EXECUTIVE Body Mass Index 33.47 04/15/2022 9:00 AM ADVERTISING ACCOUNT EXECUTIVE Plan of Treatment Health Maintenance Due Date Last Done Comments Hepatitis C Virus (HCV) Screening 1965 Cologuard 07/16/2013 Immunochemical Fecal Occult Blood 07/16/2013 Pneumococcal Immunization (50+ years) (1 of 1 - PCV) 07/16/2013 Zoster Immunization (1 of 2) 07/16/2013 PSA Discussion 07/16/2018 Influenza Immunization (#1) 10/15/202311/13, 11/23/2019, 03/27/2019, Additional history exists SARS-COV-2 Immunization ( season) 2023 11/27/2021, 09/10/2021, 12/09/2020, Additional history exists Colonoscopy 05/05/2027 05/04/2022 Colorectal Cancer Screening 05/05/2027 Respiratory Syncytial Virus (RSV) Immunization (Adult) (1 - 1-dose 75+ series) 07/16/2038 05/04/2022 DTaP/Tdap/Td Immunization Discontinued 09/21/2021 TdaP Immunization Completed 09/21/2021 Hepatitis B Immunization Aged Out No longer eligible based on patient's age to complete this topic Meningococcal Immunization (ACWY) Aged Out No longer eligible based on patient's age to complete this topic Rotavirus Immunization Aged Out No lo nger eligible based on patient's age to complete this topic Insurance MEDICARE COMMERCIAL GENERIC Member Subscriber Plan / Payer (Ef fective 2022-Present) Name:Neel Stephen Annie Relation to Subscriber:Self Name:Stephen Shaikh Payer ID:[id number] Group ID:[id number] Type:Not on file Address: [address] [address] [place] [address] Care Teams Transfer Engineer Relationship Specialty Start Date End Date Kristina Romero MD PCP - General Family Medicine 12/23/21
--- OUTSIDE RECORDS SUMMARY | 2024-03-07 17:09 | XMS_ITS | Encounter Summary ---
Author Organization [facility] Address [address] [place] [address] Phone Care Team Providers Care Grain Wafer Machine Operator Name Role Phone Kristina Romero MD Primary Care Provider Chloe Lewis PTA Unavailable Unavailable Susan Pro PT Unavailable Unavailable Encounter Details Date Type Department Care Team (Late st Contact Info) Description 12/28/2022 Orders Only [facility] [phone] Scanning, Provider Social History Tobacco Use Types Packs/Day Years Used Date Smoking Tobacco: Former Cigarettes 0.5 6 1 984 - 1989 Smokeless Tobacco: Never Alcohol Use Standard Drinks/Week Comments Yes 0 (1 standard drink = 0.6 oz pur e alcohol) rare AUDIT-C Answer Date Recorded Q1: How often do you have a drink containing alc ohol? 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 Author CCM Chronic Pain Care Plan Chronic Care Management Improving( 9:30 AM MICROCOMPUTER TECHNICIAN) No Pau Guido, RN Note: Problem: Chronic Pain Goals: 1. Minimize further functional decline 2. Maximize quality of life 3. Control pain Strategies: - Activity/exercise program recommendation - Conservative stepwise pain medicine strategy with multi-disciplinary approach - Recommend healthy lifestyle strategies and compensatory methods as needed documented as of this encounter Procedures Procedure Name Priority Date/Time Associated Diagnosis Comments SCAN - RADIOLOGY/IMAGING 12/28/2022 documented in this encounter Results * SCAN - RADIOLOGY/IMAGING (12/28/2022) Anatomical Region Laterality Modality Other us Provider Scanning Final Result documented in this encounter Visit Diagnoses Not on filedocumented in this encounter Care Teams Grain Wafer Machine Operator Relationship Specialty Start Date End Date Kristina Romero MD PCP - General 10/03/17 Chloe Lewis, MISSION ASSESSMENT SPECIALIST Automotive Service Professional Physical Therapy 10/20/17 Susan Pro PT Physical Therapist Physical Therapy 11/06/17 documented as of this encounter
--- OUTSIDE RECORDS SUMMARY | 2024-03-07 17:09 | XMS_ITS | Referral Summary ---
Author Organization [facility] Medical Office Building [address] Address [address] [place] [address] Care Team Providers Care Modeling Manager Name Role Phone Kristina Romero MD Primary Care Provider Chloe Lewis PTA Unavailable Unavailable Susan Pro PT Unavailable Unavailable Encounters Date Type Department Care Team Description 02/22/2024 7:21 AM ARTIST SCIENTIFIC - 02/22/2024 11:59 PM ARTIST SCIENTIFIC Hospital Encounter [facility] [address] [place] [phone] Left ankle pain, unspecified chronicity Discharge Disposition: Discharge to home or self care 02/22/2024 7:20 AM ARTIST SCIENTIFIC - 02/22/2024 11:59 PM ARTIST SCIENTIFIC Hospital Encounter [facility] [address] [place] [phone] Left foot pain Discharge Disposition: Discharge to home or self care 02/22/2024 7:00 AM ARTIST SCIENTIFIC Office Visit [facility] Orthopaedic Surgery [address] [place] [address] [address] [place] [phone] Sae Su MD Left foot pain (Primary Dx); Left ankle pain, unspecified chronicity 02/05/2024 2:10 PM ARTIST SCIENTIFIC Office Visit [facility] Orthopaedic Surgery [address] [place] [address] [address] [place] [phone] Sae Su MD Left ankle pain, unspecified chronicity (Primary Dx) 01/24/2024 10:46 AM ARTIST SCIENTIFIC - 01/24/2024 11:59 PM ARTIST SCIENTIFIC Hospital Encounter [facility] [address] [place] [phone] Pain in left foot Discharge Disposition: Discharge to home or self care 01/24/2024 10:45 AM ARTIST SCIENTIFIC - 01/24/2024 11:59 PM ARTIST SCIENTIFIC Hospital Encounter [facility] [address] [place] [phone] Left ankle pain, unspecified chronicity Discharge Disposition: Discharge to home or self care 01/24/2024 10:40 AM ARTIST SCIENTIFIC Office Visit [facility] Orthopa[facility] Surgery [address] [place] [address] [address] [place] [address] [phone] Sae Su MD Left ankle pain, unspecified chronicity (Primary Dx); Pain in left foot 01/09/2024 5:26 AM ARTIST SCIENTIFIC - 01/10/2024 11:45 AM ARTIST SCIENTIFIC Hospital Encounter [facility] [address] [place] [phone] Sae Su MD Status post left ankle joint replacement (Primary Dx) Discharge Disposition: Discharge to home or self care 01/09/2024 7:30 AM ARTIST SCIENTIFIC - 01/09/2024 12:15 PM ARTIST SCIENTIFIC Surgery [facility] [address] [place] [phone] Sae Su MD Left revision ankle replacement with gutter debridement and poly exchange, left medial displacement calcaneal osteoetomy 01/09/2024 7:27 AM ARTIST SCIENTIFIC Anesthesia Event [facility] [address] [place] [phone] Merlin Urena MD Heuvelman, Katherine Marie, NP 01/08/2024 Telephone [facility] Orthopa[facility] Surgery [address] [place] [address] [address] [place] [address] [phone] Magy Oconnell CMA from Last 3 Months Allergies No known active allergies Medications allopurinoL [...] (09/17/2020): Added automatically from request for surgery [id number] Assessment & Plan (12/21/2021 9:08 AM ARTIST SCIENTIFIC): - Pt completed 1 year of treatment [...] then discuss stopping. 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 Overview (02/07/2019): Added automatically from request for surgery [id number] Encounter for preadmission testing 10/31/2017 Primary osteoarthritis of right knee 07/25/2016 Immunizations Name Administration Dates Next Due Influenza, Quadrivalent, Spl it, Preservative Free, Intramuscular 11/23/2019,11/18/2017,11/17/2017 Influenza, Trivalent, IM (MDV) 02/26/2013,2013 Influenza, Unspecified 12/04/2023 Social History Tobacco Use Types Packs/Day Years [...] on file Legal Sex Male 3:47 PM ARTIST SCIENTIFIC Gender Identity Not on file Sexual Orientation Not on file Last Filed Vital Signs Vital Sign Reading Time Taken Comments Blood Pressure 136/77 01/10/2024 8:20 AM ARTIST SCIENTIFIC Pulse 86 01/10/2024 9:20 AM ARTIST SCIENTIFIC Temperature 37 ??C (98.6 ??F) 01/10/2024 8:20 AM ARTIST SCIENTIFIC Respiratory Rate 18 01/10/2024 8:20 AM ARTIST SCIENTIFIC Oxygen Saturation 91% 01/10/2024 8:20 AM ARTIST SCIENTIFIC Inhaled Oxygen Concentration - - Weight 108.9 kg (240 lb) 01/10/2024 8:20 AM ARTIST SCIENTIFIC Height 182.9 cm (6') 01/10/2024 8:20 AM ARTIST SCIENTIFIC Body Mass Index 32.55 01/10/2024 8:20 AM ARTIST SCIENTIFIC Plan of Treatment Not on file Goals Goal Patient Goal Type Associated Problems Recent Progress Patient-Stated? Author CCM Chronic Pain Care Plan Chronic Care Management Improving( 9:30 AM ARTIST SCIENTIFIC) Pau Perez RN Note: Problem: Chronic Pain Goals: 1. Minimize further functional decline 2. Maximize quality of life 3. Control pain Strategies: - Activity/exercise program recommendation - Conservative stepwise pain medicine strategy with multi-disciplinary approach - Recommend healthy lifestyle strategies and compensatory methods as needed Medical Devices Implanted Type Area Metal Bonding Press Operator Device Identifier Shelf Expiration Date Model / Serial / Lot Orthohelix Maxtorque 7mm 47.5mm Cannulated Self Drill Foot Ankle Petite [id number]-[id number] - [id number] Implanted:Qty: 1 on 01/09/2024 by Sae Su MD at [facility] Screw Left: Ankle Orthohelix MSD-010-70- 475P / / Orthohelix Screw Bone Maxtorque Short Thread L47.5 Mm Od5.5 Mm Foot Ankle Self Drill Cannulated Nonsterile Qsa-[id number] - [id number] Implanted:Qty: 1 on 01/09/2024 by Sae Su MD at [facility] Screw Left: Ankle Orthohelix MSD-010-55- [id number] / / Depuy Orthopaedics Inc [id number] Smartset High Viscosity Cement 40gm Bone Gentamicin - [id number] Implanted:Qty: 1 on 10/30/2017 by Andre Rivera MD at [facility] Right: Knee [employer]uy [employer] Inc 11/12/2018 [id number] / / [id number] Depuy Orthopaedics Inc [id number] Smartset High Viscosity Cement 40gm Bone Gentamicin - [id number] Implanted:Qty: 1 on 10/30/2017 by Andre Rivera MD at [facility] Right: Knee [employer] Inc 11/12/2018 [id number] / / [id number] Depuy Orthopaed[employer] Inc [id number] Attune Cemented Posterior Stabilize Knee Right 6 Narrow Component - [id number] Implanted:Qty: 1 on 10/30/2017 by Andre Rivera MD at [facility] Right: Knee [employer] Inc 06/13/2027 [id number] / / [id number] Depuy Orthopaed[employer] Inc [id number] Attune S+ Cement Fix Bearing Knee 6 Baseplate Tibial - [id number] Implanted:Qty: 1 on 10/30/2017 by Andre Rivera MD at [facility] Right: Knee [employer] 04/13/2027 [id number] / / [id number] Depuy Orthopaed[employer] Inc [id number] Attune 8mm Posterior Stabilize Fix Bearing Knee 6 Insert Tibial - [id number] Implanted:Qty: 1 on 10/30/2017 by Andre Rivrea MD at [facility] Right: Knee [employer] Inc 05/13/2022 [id number] / / [id number] Rankin [employer] Inc [id number]-0400 Mini Ignite Power Mix Injectable Graft 4ml Synthetic Tissue - [id number] - [id number] Implanted:Qty: 1 on 07/09/2019 by Sae Su MD at [facility] Left: Ankle [employer] 06/02/2023 [id number] / [id number] / [employer] Inc [id number] Infinity Ankle 4 Long Tray Tibial Adaptis - [id number] Implanted:Qty: 1 on 07/01/2020 by Sae Su MD at [facility] Left: Ankle [employer] [id number] 11/26/2026 [id number] / / [id number] [employer] Inc [id number] Taldome Infinity Adaptis Flatcut Sz3 - [id number] Implanted:Qty: 1 on 07/01/2020 by Sae Su MD at [facility] Left: Ankle [employer] Inc [id number] 05/21/2028 [id number] / / [id number] TensorComm [employer] Inc [id number] Inbone 9mm Ankle 3+ Implant Fixation Everlast - [id number] Implanted:Qty: 1 on 07/01/2020 by Sae Su MD at [facility] Left: Ankle [employer] Inc [id number] 05/28/2027 [id number] / / [id number] Allosource [id number] 23mm Wedge Frozen Spine Graft Bone Tricortical Ilium - [id number] Implanted:Qty: 1 on 07/01/2020 by Sae Su MD at [facility] Left: Foot Allosource 01/27/2025 [id number] / / [id number] [employer] 1620-509ns Steinmann 5/64in 9in Trocar Point One End Pin Fixation Stainless - [id number] Implanted:Qty: 1 on 07/01/2020 by Sae Su MD at [facility] Left: Foot [employer] [id number] / / Axogen Inc Avance 1-2mm 70mm Allograft Graft Nerve Sterile [id number] - S0 - [id number] Implanted:Qty: 1 on 04/04/2023 by Mani Oseguera MD at [facility] Left: Ankle [employer]ogen Inc 07/13/2025 [id number] / 0 / [id number] TensorComm [employer] Inc Inbone 11mm Ankle 3+ Implant Fixation Everlast [id number] - [id number] Implanted:Qty: 1 on 01/09/2024 by Sae Su MD at [facility] Left: Ankle [employer] Inc 11/09/2029 [id number] / / [id number] Explanted Type Area Metal Bonding Press Operator Device Identifier Shelf Expiration Date Model / Serial / Lot [employer] 1624-509ns Steinmann 3/32mm 9in Trocar Point Pin Fixation Stainless Steel - [id number] Explanted:Qty: 1 on 07/09/2019 at [facility] Left: Ankle [employer] [id number] / / Rankin [employer] Inc [id number] K-Wire 1.4mm 228mm Wire Fixation - [id number] Explanted:Qty: 4 on 07/01/2020 at [facility] Left: Ankle [employer] [id number] / / Paxfire Surgical Instruments 1600-9455ns Jesus .45in 9in 1 Trocar Point Orthopedic Wire Fixation - [id number] Explanted:Qty: 1 on 07/01/2020 at [facility] Left: Foot [employer] [id number] S / / Orthohelix [id number] Maxtorque 7mm 75mm Cannulated Self Drill Foot Ankle Petite Thread - [id number] Implanted:Qty: 1 on 07/09/2019 by Sae Su MD at [facility] Explanted:Qty: 1 on 07/01/2020 at [facility] Left: Ankle Orthohelix MSD-010-70 -075P / / Orthohelix [id number] Maxtorque 7mm 80mm Cannulated Self Drill Short Thread Screw Bone - [id number] Implanted:Qty: 1 on 07/09/2019 by Sae Su MD at [facility] Explanted:Qty: 1 on 07/01/2020 at [facility] Left: Ankle Orthohelix MSD-010-70 -[id number] / / Procedures Procedure Name Priority Date/Time Associated Diagnosis Comments ORTHO CASTING/SPLINTING Routine 02/21/19 8:31 AM ARTIST SCIENTIFIC Left foot pain XR ANKLE LEFT 3 OR MORE VIEWS Schedule Routine, Read Routine (OP Routine) 02/22/2024 7:30 AM ARTIST SCIENTIFIC Left ankle pain, unspecified chronicity XR FOOT LEFT 3 OR MORE VIEWS Schedule Routine, Read Routine (OP Routine) 02/22/2024 7:29 AM ARTIST SCIENTIFIC Left foot pain SC CAST SUP SHRT LEG FIBERGLASS Routine 02/05/2024 8:24 AM ARTIST SCIENTIFIC Left ankle pain, unspecified chronicity SC APPLICATION SHORT LEG CAST BELOW KNEE-TOE Routine 02/05/2024 8:24 AM ARTIST SCIENTIFIC Left ankle pain, unspecified chronicity SC CAST SUP SHRT LEG FIBERGLASS Routine 01/24/2024 12:25 PM ARTIST SCIENTIFIC Left ankle pain, unspecified chronicity SC APPLICATION SHORT LEG CAST BELOW KNEE-TOE Routine 01/24/2024 12:25 PM ARTIST SCIENTIFIC Left ankle pain, unspecified chronicity XR FOOT LEFT 3 OR MORE VIEWS Schedule Routine, Read Routine (OP Routine) 01/24/2024 10:57 AM ARTIST SCIENTIFIC Pain in left foot XR ANKLE LEFT 3 OR MORE VIEWS Schedule Routine, Read Routine (OP Routine) 01/24/2024 10:57 AM ARTIST SCIENTIFIC Left ankle pain, unspecified chronicity EGFR Routine 01/09/2024 9:45 PM ARTIST SCIENTIFIC DIFFERENTIAL AUTO Routine 01/09/2024 9:4 5 PM ARTIST SCIENTIFIC CBC WITH AUTO DIFFERENTIAL Routine 01/09/2024 9:45 PM ARTIST SCIENTIFIC BASIC METABOLIC PANEL Routine 01/09/2024 9:45 PM ARTIST SCIENTIFIC FL FLUOROSCOPY < 1 HOUR IP Routine 01/09/20 12:10 PM ARTIST SCIENTIFIC MYCOBACTERIOLOGY AFB CULTURE AND ACID-FAST STAIN Routine 01/09/2024 9:06 AM ARTIST SCIENTIFIC MYCOLOGY (FUNGAL) CULTURE AND STAIN Routine 01/09/2024 9:06 AM ARTIST SCIENTIFIC TISSUE AEROBIC AND ANAEROBIC CULTURE AND GRAM STAIN Routine 01/09/2024 9:06 AM ARTIST SCIENTIFIC MYCOBACTERIOLOGY AFB CULTURE AND ACID-FAST STAIN Routine 01/09/2024 8:56 AM ARTIST SCIENTIFIC MYCOLOGY (FUNGAL) CULTURE AND STAIN Routine 01/09/2024 8:56 AM ARTIST SCIENTIFIC TISSUE AEROBIC AND ANAEROBIC CULTURE AND GRAM STAIN Routine 01/09/2024 8:56 AM ARTIST SCIENTIFIC MYCOBACTERIOLOGY AFB CULTURE AND ACID-FAST STAIN Routine 01/09/2024 8:47 AM ARTIST SCIENTIFIC MYCOLOGY (FUNGAL) CULTURE AND STAIN Routine 01/09/2024 8:47 AM ARTIST SCIENTIFIC TISSUE AEROBIC AND ANAEROBIC CULTURE AND GRAM STAIN Routine 01/09/2024 8:47 AM ARTIST SCIENTIFIC SC AN PROCEDURE PLACEHOLDER Routine 01/09/2024 8:06 AM ARTIST SCIENTIFIC SC AN ELECTIVE ENDOTRACHEAL AIRWAY Routine 01/09/2024 8:06 AM ARTIST SCIENTIFIC OSTEOTOMY CALCANEUS 01/09/2024 7 :32 AM ARTIST SCIENTIFIC Deformity of ankle joint, right Case Notes 06/15: Message sent blank dpc -bt ARTHROPLASTY TOTAL ANKLE 01/09/2024 7:32 AM ARTIST SCIENTIFIC Deformity of ankle joint, right Case Notes 06/15: Message sent blank dpc -bt from Last 3 Months Results * Ortho Casting/Splinting Documentation (02/22/2024 8:31 AM ARTIST SCIENTIFIC) Narrative Teresita Simon MS - 02/22/2024 8:31 AM ARTIST SCIENTIFIC Teresita Simon MS ? 02/22/2024 ??8:31 AM [...] 3 or More Views (02/22/2024 7:30 AM ARTIST SCIENTIFIC) Anatomical Region Laterality Modality Lower Extremities, Ankle Left Compute d Radiography 02/22/2024 7:41 AM ARTIST SCIENTIFIC Impressions 02/22/2024 7:41 AM ARTIST SCIENTIFIC Revision left total ankle arthroplasty in near-anatomic position. ??Healing instrumented calcaneal osteotomy. Electronically signed by: Aryan Spangler M.D. Narrative 02/22/2024 7:41 AM ARTIST SCIENTIFIC EXAMINATION: XR FOOT LEFT 3 OR MORE [...] 3 or More Views (02/22/2024 7:29 AM ARTIST SCIENTIFIC) Anatomical Region Laterality Modality Lower Extremities, Foot Left Computed Radiography 02/22/2024 7:41 AM ARTIST SCIENTIFIC Impressions 02/22/2024 7:41 AM ARTIST SCIENTIFIC Revision left total ankle arthroplasty in near-anatomic position. ??Healing instrumented calcaneal osteotomy. Electronically signed by: Aryan Spangler M.D. Narrative 02/22/2024 7:41 AM ARTIST SCIENTIFIC EXAMINATION: XR FOOT LEFT 3 OR MORE [...] IMG XR PROCEDURES Chata l Result * SC APPLICATION SHORT LEG CAST BELOW KNEE-TOE, SC CAST SUP SHRT LEG FIBERGLASS (02/05/2024 8:24 AM ARTIST SCIENTIFIC) Narrative Clamors, Teresita, MS - 02/05/2024 8:24 AM ARTIST SCIENTIFIC AuroraTeresita MS ? 02/21/2024 ??8:24 AM Ortho Casting/Splinting Documentation Date/Time: 02/05/2024 8:24 AM Performed by: Oliverio Lou Authorized by: Sae Su MD ?? Sensation: ??Normal Skin Condition: ??Clean, dry, and intact Ava/Sutures Removed: No ?? Pin Pulled: No ?? [...] IN CLINIC/BEDSIDE DINA CLINE Final Result * SC APPLICATION SHORT LEG CAST BELOW KNEE-TOE, SC CAST SUP SHRT LEG FIBERGLASS (01/24/2024 12:25 PM ARTIST SCIENTIFIC) Narrative Sae Su MD - 01/24/2024 12:25 PM ARTIST SCIENTIFIC Sae Su MD ? 01/28/2024 12:59 AM [...] complications us Sae Su MD IN CLINIC/BEDSIDE ADELIASharon SON Edited Result - Final * XR Foot Left 3+ View (01/24/2024 10:57 AM ARTIST SCIENTIFIC) Anatomical Region Laterality Modality Lower Extremities, Foot Left Computed Radiography 01/24/2024 4:10 PM ARTIST SCIENTIFIC Impressions 01/24/2024 9:23 PM ARTIST SCIENTIFIC Revision left total ankle arthroplasty in expected position with healing interval instrumented calcaneal osteotomy and surrounding soft tissue swelling. Dictated by: Avis Vega MD, MPH The radiology attending physician has personally reviewed this study, and had reviewed and/or edited this written report and agrees with it. Electronically signed by: Saji Hdz MD Narrative 01/24/2024 9:23 PM ARTIST SCIENTIFIC EXAMINATION: ??XR ANKLE LEFT 3 OR MORE [...] it. Electronically signed by: Saji Hdz MD Sae Su MD IMG XR PROCEDURES Chata l Result * XR Ankle Left 3+ View (01/24/2024 10:57 AM ARTIST SCIENTIFIC) Anatomical Region Laterality Modality Lower Extremities, Ankle Left Compute d Radiography 01/24/2024 4:10 PM ARTIST SCIENTIFIC Impressions 01/24/2024 9:23 PM ARTIST SCIENTIFIC Revision left total ankle arthroplasty in expected position with healing interval instrumented calcaneal osteotomy and surrounding soft tissue swelling. Dictated by: Avis Vega MD, MPH The radiology attending physician has personally reviewed this study, and had reviewed and/or edited this written report and agrees with it. Electronically signed by: Saji Hdz MD Narrative 01/24/2024 9:23 PM ARTIST SCIENTIFIC EXAMINATION: ??XR ANKLE LEFT 3 OR MORE [...] it. Electronically signed by: Saji Hdz MD Sae Su MD IMG XR PROCEDURES Chata l Result * eGFR (01/09/2024 9:45 PM ARTIST SCIENTIFIC) eGFR 83 >=60 mL/min/1. 73 m2 Comment: [...] of Race in Diagnosing Kidney Disease, JASN 202). The CKD-EPI equation should not be used for patients with unstable renal function and has not been validated in children and those over 70. Current interpretive data was last reviewed 2020. Blood 01/09/2024 9:45 PM ARTIST SCIENTIFIC 01/09/2024 10:26 PM ARTIST SCIENTIFIC Halley Shields NP LAB BLOOD ORDERABLES Final Result [facility] Department [place] [address] * (ABNORMAL) Differential, auto (01/09/2024 9:45 PM ARTIST SCIENTIFIC) Pathologist [facility] Neutrophil abs 12.8(H) 1.5 - 6.5 K/cumm Imm gran abs 0.1 0.0 - 0.1 K/cumm [facility] Lymphocyte abs 1.4 0.8 - 3.3 K/cumm [facility] Monocyte abs 1.1(H) 0.2 - 0.8 K/cumm [facility] Eosinophil abs 0.0 0.0 - 0.5 K/cumm [facility] Basophil abs 0.0 0.0 - 0.1 K/cumm [facility] Neutrophil pct 82.8 % [facility] Comment: Interpretive Data Percent cell count reference ranges are not reported, since discordance with absolute values may lead to misinterpretation of CBC data. Current Interpretive Data was last revised on 2017. Imm gran pct 0.7 % [facility] Comment: Interpretive Data Percent cell count reference ranges are not reported, since discordance with absolute values may lead to misinterpretation of CBC data. Current Interpretive Data was last revised on 2017. Lymphocyte pct 9.2 % [facility] Comment: Interpretive Data Percent cell count reference ranges are not reported, since discordance with absolute values may lead to misinterpretation of CBC data. Current Interpretive Data was last revised on 2017. Monocyte pct 7.1 % [facility] Comment: Interpretive Data Percent cell count reference ranges are not reported, since discordance with absolute values may lead to misinterpretation of CBC data. Current Interpretive Data was last revised on 2017. Eosinophil pct 0.0 % [facility] Comment: Interpretive Data Percent cell count reference ranges are not reported, since discordance with absolute values may lead to misinterpretation of CBC data. Current Interpretive Data was last revised on 2017. Basophil pct 0.2 % [facility] Comment: Interpretive Data Percent cell count reference ranges are not reported, since discordance with absolute values may lead to misinterpretation of CBC data. Current Interpretive Data was last revised on 2017. Blood 01/09/2024 9:45 PM ARTIST SCIENTIFIC 01/09/2024 10:25 PM ARTIST SCIENTIFIC us Halley Shields NP LAB BLOOD ORDERABLES Final Result [facility] Department [place] [address] * (ABNORMAL) CBC with auto differential (01/09/2024 9:45 PM ARTIST SCIENTIFIC) WBC 15.4(H) 3.8 - 9.9 K/cumm Hgb 14.5 13.0 - 17.5 g/dL [facility] Hct 43.9 38.9 - 50.3 % [facility] Plt 208 150 - 400 K/cumm [facility] MPV 9.4 9.1 - 12.3 fL [facility] RBC 4.87 4.30 - 5.80 M/cumm [facility] MCV 90.1 81.3 - 96.4 fL [facility] MCH 29.8 27.1 - 33.3 pg [facility] MCHC 33.0 32.3 - 35.7 g/dL [facility] RDW CV 13.8 11.1 - 14.9 % [facility] RDW SD 46.2 35.7 - 48.1 fL [facility] NRBC abs 0.00 0.00 - 0.01 K/cumm [facility] Blood 01/09/2024 9:45 PM ARTIST SCIENTIFIC 01/09/2024 10:25 PM ARTIST SCIENTIFIC Halley Shields NP LAB BLOOD ORDERABLES Final Result [facility] [place] [address] * Basic metabolic panel (01/09/2024 9:45 PM ARTIST SCIENTIFIC) Sodium 140 135 - 145 mmol/L Potassium, pl 4.5 3.3 - 4.9 mmol/L [facility] Chloride 102 97 - 110 mmol/L [facility] CO2 30 22 - 32 mmol/L [facility] Anion gap 8 2 - 15 mmol/L [facility] BUN 15 6 - 25 mg/dL [facility] Creatinine 1.03 0.80 - 1.30 mg/dL [facility] Glucose 104 70 - 199 mg/dL [facility] Comment: Interpretive Data Fasting glucose >/= 126 [...] classification and Diagnosis of Diabetes Diabetes Care 202; 46: S19-S40. Current interpretive data was last revised 2022. Calcium 8.7 8.5 - 10.3 mg/dL [facility] Blood 01/09/2024 9:45 PM ARTIST SCIENTIFIC 01/09/2024 10:26 PM ARTIST SCIENTIFIC Halley Shields NP LAB BLOOD ORDERABLES Final Result Performing Organization Address [facility] Co de Phone Number JAYA PRYOR [facility] Department [place] [address] * [place] Fluoroscopy < 1 Hour (01/09/2024 12:10 PM ARTIST SCIENTIFIC) Narrative RAD_[facility] - 01/09/2024 12:10 PM ARTIST SCIENTIFIC The images from this study are not interpreted by Radiology. ??Please refer to the physician's procedure / OR operative note. Sae Su MD IMG FLUOROSCOPY PROCED URES Final Result Performing Organization Address [facility] Co de Phone Number [facility] * Tissue aerobic and anaerobic culture and gram stain Tissue Ankle, left (01/09/2024 9:06 AM ARTIST SCIENTIFIC) Direct Specimen Exam Stain: Rare polymorphonuclear leukocytes seen. No organisms seen. Report Final Report: No growth JAYA [facility] Tissue (Ankle, left) 01/09/2024 9:06 AM ARTIST SCIENTIFIC 01/09/2024 2:04 PM ARTIST SCIENTIFIC Narrative JAYA [facility] - 01/14/2024 9:47 AM ARTIST SCIENTIFIC Left Ankle Anterior Joint Specimen received in anaerobic transport media. Testing performed by [facility] ([phone]) Specimens submitted from normally sterile body sites [...] ERAL ORDERABLES Final Result Performing Organization Address [facility] Co de Phone Number [facility] Department [place] [address] * Mycology (fungal) culture and stain Tissue Ankle, left (01/09/2024 9:06 AM ARTIST SCIENTIFIC) Direct Specimen Exam Stain: No Fungal elements seen. Report Final Report: No growth of fungus [facility] Tissue (Ankle, left) 01/09/2024 9:06 AM ARTIST SCIENTIFIC 01/09/2024 2:04 PM ARTIST SCIENTIFIC Narrative [facility] [place] 02/06/2024 10:50 AM ARTIST SCIENTIFIC Left Ankle Anterior Joint Specimen received in anaerobic transport media. [facility] [facility] ([phone]). Sae Su MD LAB MICROBIOLOGY - GEN ERAL ORDERABLES Final Result Performing Organization Address [facility] de Phone Number [facility] Department [place] [address] * Tissue aerobic and anaerobic culture and gram stain Tissue Ankle, left (01/09/2024 8:56 AM ARTIST SCIENTIFIC) Direct Specimen Exam Stain: No polymorphonuclear leukocytes seen. No organisms seen. Report Final Report: No growth [facility] Tissue (Ankle, left) 01/09/2024 8:56 AM ARTIST SCIENTIFIC 01/09/2024 1:43 PM ARTIST SCIENTIFIC Narrative JAYA [facility] - 01/14/2024 9:48 AM ARTIST SCIENTIFIC Left Ankle Medial Gutter Specimen received in anaerobic transport media. Testing performed by [facility] Microbiology [facility] ([phone]) Specimens submitted from normally sterile body sites [...] ERAL ORDERABLES Final Result Performing Organization Address City/[facility]/ZIP Co de Phone Number [facility] [place] [address] * Mycology (fungal) culture and stain Tissue Ankle, left (01/09/2024 8:56 AM ARTIST SCIENTIFIC) Direct Specimen Exam Stain: No Fungal elements seen. Report Final Report: No growth of fungus [facility] Tissue (Ankle, left) 01/09/2024 8:56 AM ARTIST SCIENTIFIC 01/09/2024 1:43 PM ARTIST SCIENTIFIC Narrative JAYA [facility] - 02/06/2024 10:51 AM ARTIST SCIENTIFIC Left Ankle Medial Gutter Specimen received in anaerobic transport media. Testing performed by [facility] ([phone]). Sae Su MD LAB MICROBIOLOGY - GEN ERAL ORDERABLES Final Result Performing Organization Address [facility] Co de Phone Number [facility] [place] [address] * Tissue aerobic and anaerobic culture and gram stain Tissue Ankle, left (01/09/2024 8:47 AM ARTIST SCIENTIFIC) Direct Specimen Exam Stain: No polymorphonuclear leukocytes seen. No organisms seen. Report Final Report: No growth [facility] Tissue (Ankle, left) 01/09/2024 8:47 AM ARTIST SCIENTIFIC 01/09/2024 2:07 PM ARTIST SCIENTIFIC Narrative JAYA [facility] - 01/14/2024 9:46 AM ARTIST SCIENTIFIC Left Ankle Joint Capsule Specimen received in anaerobic transport media. Testing performed by [facility] ([phone]) Specimens submitted from normally sterile body sites [...] ERAL ORDERABLES Final Result Performing Organization Address [facility] de Phone Number [facility] Department [place] [address] * Mycology (fungal) culture and stain Tissue Ankle, left (01/09/2024 8:47 AM ARTIST SCIENTIFIC) Direct Specimen Exam Stain: No Fungal elements seen. Report Final Report: No growth of fungus [facility] Tissue (Ankle, left) 01/09/2024 8:47 AM ARTIST SCIENTIFIC 01/09/2024 2:07 PM ARTIST SCIENTIFIC Narrative [facility] - 02/06/2024 10:50 AM ARTIST SCIENTIFIC Left Ankle Joint Capsule Specimen received in anaerobic transport media. Testing performed by [facility] ([phone]). Sae Su MD LAB MICROBIOLOGY - GEN ERAL ORDERABLES Final Result Performing Organization Address [facility] de Phone Number JAYA [facility] [place] [address] * SC AN ELECTIVE ENDOTRACHEAL AIRWAY, SC AN PROCEDURE PLACEHOLDER (01/09/2024 8:06 AM ARTIST SCIENTIFIC) Narrative Stew Doyle CRNA - 01/09/2024 8:06 AM ARTIST SCIENTIFIC Stew Doyle CRNA ? 01/09/2024 ??8:07 AM Airway Patient location: OR Urgency: elective Indications for airway management: anesthesia Difficult airway: no Staff: Placed by: RENETTA: Stew Doyle CRNA Emergent airway documentation: Risks [...] with: silk tape Number of attempts: 1 Merlin Urena MD ANESTHESIA ORDERABLES Final Res ult from Last 3 Months Insurance [facility] [employer] [place] [facility] PPO [employer] OPEN ACCESS [employer] Member Subscriber Plan / Payer (Ef fective 2020-Present) Name:Carly Lawson Member ID:[id number] Relation to Subscriber:Self Name:Carly Lawson Subscriber ID:[id number] Payer ID:[id number] ([facility]) Group ID:[id number] [facility] Member Subscriber Plan / Payer (Ef fective 2002-Present) Name:Carly Lawson Relation to Subscriber:Self Name:Carly Lawson Payer ID:[id number] ([facility]) Group ID:[id number] Type:[employer] HMO/PPO Address: [address] [place] [address] [employer] PPO MEDICARE [employer] [place] Member Subscriber Plan / Payer ( fective 2021-Present) Name:Carly Lawson Relation to Subscriber:Self Name:Carly Lawson Payer ID:[id number] Group ID:[id number] Type:COMMERCIAL Address: [address] [address] [place] [address] MEDICARE [employer] [place] Member Subscriber Plan / Payer ( fective 2018-Present) Name:Carly Lawson Relation to Subscriber:Self Name:Carly Lawson Payer ID:[id number] Group ID:[id number] Type:COMMERCIAL Address: [facility] [address] [place] [address] Advance Directives For more information, please contact: [phone] * Full Code (Latest Code Status on [...] 5:22 PM 07/09/2019 5:25 AM Care Teams Modeling Manager Relationship Specialty Start Date End Date Kristina Romero MD PCP - General 10/03/17 Chloe Lewis, SHOVELER Shareholder Physical Therapy 10/20/17 Susan Pro, TAMY Physical Therapist Physical Therapy 11/06/17
[2024-03-28 12:56] VITALS: BMI 33.2
--- NOTE | 2024-03-28 12:56 | WPDHOMESLEEP ---
Sleep Study - Home Unattended Date of Study: 03/05/24 Ordering Provider: Maricel Mcgill NP Interpreting Provider: Kayla Jimenez, DO Home Sleep Study Type: Watch PAT Height: 1.83 m Weight: 111.13 kg Body Mass Index: 33.2 Neck Circumference (inches): 17.25 [place]: 18 Reason for Sleep Study Daytime hypersomnia Sleep History The patient is a 58-year-old male that had a sleep study ordered by his primary care for evaluation sleep apnea. The patient admits to snoring loudly, excessive daytime sleepiness and trouble maintaining sleep. He denies interruptions in breathing while asleep. He denies choking or gasping at night. He denies having trouble breathing on his back. He does have morning headaches. He does have a dry or sore mouth / throat the morning. He denies nocturnal heartburn. He urinates twice throughout the night. He denies having trouble falling asleep. He does have difficulty falling back asleep if he wakes up throughout the night. He denies any hypnotic or sedative use. He denies feeling anxious about sleep. He does feel tired or sleepy during the day. He does feel tired in the morning. He does have the urge to fall asleep during the day. He does feel drowsy while driving. He denies sleep paralysis, cataplexy and hypnagogic/ hypnopompic hallucinations. He does clench or grind his teeth. He denies kicking or jerking his legs excessively. He does have a restless feeling in his legs that does cause an urge to move his legs. The restless feeling does not get worse with rest and it does not get better with activity. The restless feeling in his legs is worse in the evening or at night. It does not cause a disturbance in sleep. He goes to bed at 10:00 p.m. on both work days and his days off. It takes him 15 minutes to fall asleep. He gets 4 hours of sleep per night. His sleep is not restorative on his days off. He denies taking any planned naps. He denies dream enactment behavior. He denies sleep walking. He consumes 3-4 cups of caffeinated beverage per day. He denies tobacco use. He consumes 1 alcoholic beverage 1-2 nights per week. He denies exercising on a regular basis. [facility] Past Medical History Medical History Septic arthritis of knee, left (~08/2020) Septic arthritis of left ankle (~05/2021) Unspecified osteoarthritis, unspecified site Idiopathic gout Surgical History Surgical History H/O foot surgery History of left knee surgery (~08/2020) for septic arthritis of left knee History of left ankle joint replacement (~06/2020) 06/2020 and 12/2023 History of arthrodesis (~07/2019) 07/2019 - left ankle History of testicular surgery (~2012) 2012 History of hernia surgery around 1989 History of tonsillectomy and adenoidectomy during teens History of shoulder surgery (~2016) 2016 - Right shoulder History of knee surgery (~10/2017) 10/2017 - right knee Family History Family History Father Diabetes mellitus Mother Breast cancer Colon cancer Social History Social History Smoking packs per day: 1 Smoking cigarettes per day: 20.0 Years smoked: 29 Smoking pack-years: 29.00 Smoking status: Former smoker Tobacco type: cigarettes Second hand tobacco smoke exposure: No Smoking end date: 02/13/91 Additional smoking assessment comments: quit over 30 years ago Alcohol intake: current Alcohol use details: 0-1 Substance use: never Substance use type: does not use Living arrangements: with family Additional living arrangements comments: Occupation/Education: retired Gender identity (if verbalized by the patient): Male Sexual Orientation (if Verbalized by the Patient): Straight or Heterosexual Medications Home Medications ?Medication ?Instructions ?Recorded ?Confirmed ?Type allopurinol 300 mg tablet 300 mg PO DAILY #90 tabs 12/12/23 03/28/24 Rx ascorbic acid (vitamin C) 1,000 mg 1 g PO DAILY 03/07/24 03/28/24 History tablet (Vitamin C) tramadol 50 mg tablet 50 mg PO Q6H PRN pain #12 tabs 03/28/24 Rx Sleep Procedure The sleep study was completed using BomboardPAT a technically adequate device with seven channels: peripheral arterial tone, actigraphy, body position, snore, respiratory movement, pulse oximetry, sleep staging, and heart rate. Prior to using the device, the patient received verbal and written instructions for its application and was provided with the help desk phone number for additional telephonic instruction with 24-hour availability of qualified personnel to answer questions. The study was scored using CMS guidelines. Sleep Architecture The total recording time is 7 hrs, 6 min. The total sleep time is 5 hrs, 56 min. Sleep latency is 20 minutes. REM latency is 58 minutes. The patient had 11 episodes of waking. Sleep architecture shows 13.9% deep sleep, 71.8% light sleep, and (as % Total Sleep Time) showed NREM (Light 71.8%; Deep 13.9%), and a 14.3% stage REM. The patient spent 100.0% of total sleep time in the supine position. Sleep efficiency was 83.57. Respiratory Analysis The overall AHI (pAHI 3%:) is 34.1. The central AHI is 6.2. The AHI was 25.8 in NREM and 83.6 in REM sleep. The AHI was 34.1 in Supine and N/A in Non-supine sleep. Percent of Milton Oconnell respirations is 0.0. Oximetry Data The oxygen desaturation index (GIANLUCA 4%:) is 17.1. The mean saturation is 92%, and the lowest saturation is 81%. Time spent with saturation < 88% is 8.3 minutes. Snoring Profile Snoring average intensity is 42 dB. The patient snored above 45 decibels for 69.3 minutes, 19.4% of sleep time. Cardiac Profile The average pulse rate is 64 beats per minutes. The lowest pulse rate is 48 bpm. The highest pulse rate reported is 111 bpm. Atrial fibrillation was not detected. Premature beats occur <0.1 per minute. Assessment and Plan Assessment and Plan (1) GILBERTO (obstructive sleep apnea): Code(s): G47.33 - Obstructive sleep apnea (adult) (pediatric) Status: Acute Assessment and Plan: The patient had an overall AHI of 16.4 with desaturation down to 81%. This is consistent with moderate sleep apnea. The patient had a central apnea index of 6.2, which is elevated (normal <5). Due to the patient's elevated central apnea index, he is not an ideal candidate for AutoPAP. AutoPAP can increase the frequency and severity of central apneas. I recommend the patient have a CPAP titration study with the use of a hypnotic (Lunesta 2-3 mg or Ambien 5-10 mg) to ensure we obtain enough sleep data and find an optimal pressure. The patient is to have an echocardiogram done to rule out cardiogenic causes for an elevated central apnea index. Data The data obtained during this sleep study is adequate for interpretation. Certification This sleep study has been reviewed by a board certified sleep medicine physician.
== END 2024-03-06 11:26 | disposition home or self-care (01) ==
LOC: ANHCSM 09:59
PROVIDERS: Visit Provider Nurse Practitioner Family
DX: G47.33 Obstructive sleep apnea (adult) (pediatric) (principal); G47.19 Other hypersomnia
CPT/HCPCS: 95800

== ENCOUNTER 2024-03-28 06:47 | Day surgery (SDC) | payer MEDICARE, SELFPAY ==
--- NOTE | 2024-03-28 06:52 | WPDHPUPDATE1 ---
History and Physical Update Update Date/Time: 03/28/24 06:52 Patient seen and examined in pre-operative holding area. No interval change in medical history or symptoms. Patient recalls previous discussion of benefits and alternatives to procedure. Continues to desire to proceed with right forearm mass excsiion . Reviewed procedure, post-op expectations and risks including but not limited to bleeding, infection, injury to tendon/nerve/vessel, decreased hand function, stiffness, RSD, no change or worsening of symptoms, recurrence. I discussed the possible use of assistants and their participation in the case. Patient stated understanding and signed the consent form wishing to proceed.
--- NOTE | 2024-03-28 06:53 | W.PM.PROC2 ---
Procedure Note - Detailed Date of Procedure 03/28/24 Pre-op Diagnosis Localized Swelling, Mass and Lump RT Upp.Extremity Post-op Diagnosis Same Procedure Performed right forearm mass excision Surgeon Alex Yanes MD Refrigeration Systems Installer yvonne mckee pa-c Anesthesia MAC Description of Procedure INFORMED CONSENT: The patient was seen and examined and marked in the pre-op area.? The patient signed the consent form. PROCEDURE IN DETAIL:The patient taken back to OR on the stretcher in supine position. Time out performed with anesthesia, surgeon and staff agreeing on patient's name site and surgery to be performed SCDs were placed on the lower extremities and inflated. A tourniquet was placed on {right} upper extremity and antibiotics given IV After anesthesia administered sedation I injected {6}cc 1%lido with epi and 0.5% marcaine plain at the operative site The?{right upper extremity}?was prepped and draped in sterile fashion the??{right upper extremity} was? exsanguinated with Esmarch bandage proximal to mass and tourniquet inflated to 250mmHg I proceeded with making a longitudinal incision over mass with 15 blade through skin and dermis. 15 blade and littler scissors were used to spread and dissect through subt elevating skin flaps down to mass that was adherent to antebrachial fascia. Possible feeding vessels proxiamlly and distally were identified and cauterized with bipolar and I proceeded with excision of the mass off the antebrachial fascia. I irrigated with normal saline. The tourniquet was let down noting adequate hemostasis and hand perfusion. The incision was closed with 3-0 vicryl and 4-0 monocryl. A dressing of Dermabond, 4x4, maria ines, and an bernard bandage was applied noting the hand was warm and well perfused. The patient was then awaken from anesthesia and transferred to the recovery room in stable condition.? Complications - none EBL- 0cc Disposition - home in stable conditions Yvonne Mckee PA-C was essential for positioning, retraction, closure and dressing placement [facility] Billing Surgery - Charge Forward: Surgery Billing ([id number] same for yvonne daniels )
--- OUTSIDE RECORDS SUMMARY | 2024-03-28 07:25 | XMS_ITS | Encounter Summary ---
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
--- OUTSIDE RECORDS SUMMARY | 2024-03-28 07:26 | XMS_ITS | Referral Summary ---
Author Organization [facility] Address [address] [place] [address] Care Team Providers Care Hedis Specialist Name Role Phone Kristina Romero MD Primary Care Provider Chloe Lewis PTA Unavailable Unavailable Susan Pro PT Unavailable Unavailable Encounters Date Type Department Care Team Description 03/25/2024 7:30 AM SOCIAL INSURANCE ANALYST - 03/25/2024 11:59 PM SOCIAL INSURANCE ANALYST Hospital Encounter [facility] [address] [place] [phone] Left ankle pain, unspecified chronicity Discharge Disposition: Discharge to home or self care 03/25/2024 7:30 AM SOCIAL INSURANCE ANALYST - 03/25/2024 11:59 PM SOCIAL INSURANCE ANALYST Hospital Encounter [facility] [address] [place] [phone] Pain in left foot Discharge Disposition: Discharge to home or self care 03/25/2024 7:40 AM SOCIAL INSURANCE ANALYST Office Visit [facility] [address] [place] [address] 2nd Floor [address] [place] [phone] Sae Su MD Pain in left foot (Primary Dx); Left ankle pain, unspecified chronicity 02/22/2024 7:21 AM SOCIAL INSURANCE ANALYST - 02/22/2024 11:59 PM SOCIAL INSURANCE ANALYST Hospital Encounter [facility] [address] [place] [phone] Left ankle pain, unspecified chronicity Discharge Disposition: Discharge to home or self care 02/22/2024 7:20 AM SOCIAL INSURANCE ANALYST - 02/22/2024 11:59 PM SOCIAL INSURANCE ANALYST Hospital Encounter [facility] [address] [place] [address] [phone] Left foot pain Discharge Disposition: Discharge to home or self care 02/22/2024 7:00 AM SOCIAL INSURANCE ANALYST Office Visit [facility] [address] [place] [address] Floor [address] [place] [phone] Sae Su MD Left foot pain (Primary Dx); Left ankle pain, unspecified chronicity 02/05/2024 2:10 PM SOCIAL INSURANCE ANALYST Office Visit [facility] Orthopa[facility] [address] Floor [address] [place] [phone] Sae Su MD Left ankle pain, unspecified chronicity (Primary Dx) 01/24/2024 10:46 AM SOCIAL INSURANCE ANALYST - 01/24/2024 11:59 PM SOCIAL INSURANCE ANALYST Hospital Encounter [facility] [address] [place] [phone] Pain in left foot Discharge Disposition: Discharge to home or self care 01/24/2024 10:45 AM SOCIAL INSURANCE ANALYST - 01/24/2024 11:59 PM SOCIAL INSURANCE ANALYST Hospital Encounter [facility] [address] [place] [phone] Left ankle pain, unspecified chronicity Discharge Disposition: Discharge to home or self care 01/24/2024 10:40 AM SOCIAL INSURANCE ANALYST Office Visit [facility] [address] Floor [address] [place] [phone] Sae Su MD Left ankle pain, unspecified chronicity (Primary Dx); Pain in left foot 01/09/2024 5:26 AM SOCIAL INSURANCE ANALYST - 01/10/2024 11:45 AM SOCIAL INSURANCE ANALYST Hospital Encounter [address] [phone] Sae Su MD Status post left ankle joint replacement (Primary Dx) Discharge Disposition: Discharge to home or self care 01/09/2024 7:30 AM SOCIAL INSURANCE ANALYST - 01/09/2024 12:15 PM SOCIAL INSURANCE ANALYST Surgery [facility] [address] [place] [address] Sae Su MD Left revision ankle replacement with gutter debridement and poly exchange, left medial displacement calcaneal osteoetomy 01/09/2024 7:27 AM SOCIAL INSURANCE ANALYST Anesthesia Event [facility] [address] [place] [address] Merlin Urena MD Heuvelman, Katherine Marie, NP 01/08/2024 Telephone [facility] [id number] [place] [address] 2nd [address] [place] [address] Magy Oconnell CMA from Last [...] (09/17/2020): Added automatically from request for surgery [id number] Assessment & Plan (12/21/2021 9:08 AM SOCIAL INSURANCE ANALYST): - Pt completed 1 year of treatment [...] then discuss stopping. - Refill sent to [facility] - Labs today for monitoring - Discussed [...] (06/11/2020): Added automatically from request for surgery [id number] Arthritis of left subtalar joint 02/07/2019 Overview (02/07/2019): Added automatically from request for surgery [id number] Encounter for preadmission testing 10/31/2017 Primary osteoarthritis [...] on file Legal Sex Male 3:47 PM SOCIAL INSURANCE ANALYST Gender Identity Not on file Sexual Orientation Not on file Last Filed Vital Signs Vital Sign Reading Time Taken Comments Blood Pressure 136/77 01/10/2024 8:20 AM SOCIAL INSURANCE ANALYST Pulse 86 01/10/2024 9:20 AM SOCIAL INSURANCE ANALYST Temperature 37 C (98.6 F) 01/10/2024 8:20 AM SOCIAL INSURANCE ANALYST Respiratory Rate 18 01/10/2024 8:20 AM SOCIAL INSURANCE ANALYST Oxygen Saturation 91% 01/10/2024 8:20 AM SOCIAL INSURANCE ANALYST Inhaled Oxygen Concentration - - Weight 108.9 kg (240 lb) 01/10/2024 8:20 AM SOCIAL INSURANCE ANALYST Height 182.9 cm (6') 01/10/2024 8:20 AM SOCIAL INSURANCE ANALYST Body Mass Index 32.55 01/10/2024 8:20 AM SOCIAL INSURANCE ANALYST Plan of Treatment Not on file Goals Goal Patient Goal Type Associated Problems Recent Progress Patient-Stated? Author CCM Chronic Pain Care Plan Chronic Care Management Improving( 9:30 AM SOCIAL INSURANCE ANALYST) Pau Perez, RN Note: Problem: Chronic Pain Goals: 1. Minimize further functional decline 2. Maximize quality of life 3. Control pain Strategies: - Activity/exercise program recommendation - Conservative stepwise pain medicine strategy with multi-disciplinary approach - Recommend healthy lifestyle strategies and compensatory methods as needed Medical Devices Implanted Type Area Dumpcart Driver Device Identifier Shelf Expiration Date Model / Serial / Lot Orthohelix Maxtorque 7mm 47.5mm Cannulated Self Drill Foot Ankle Petite [id number] - [id number] Implanted:Qty: 1 on 01/09/2024 by Sae Su MD at [facility] Screw Left: Ankle Orthohelix MSD-010-70- 475P / / Orthohelix Screw Bone Maxtorque Short Thread L47.5 Mm Od5.5 Mm Foot Ankle Self Drill Cannulated Nonsterile [id number]-[id number] - [id number] Implanted:Qty: 1 on 01/09/2024 by Sae Su MD at [facility] Screw Left: Ankle Orthohelix MSD-010-55- [id number] / / Depuy Orthopaedics Inc [id number] Smartset High Viscosity Cement 40gm Bone Gentamicin - [id number] Implanted:Qty: 1 on 10/30/2017 by Andre Rivera MD at [facility] Right: Knee [employer]ed[employer] Inc 11/12/2018 [id number] / / [id number] Depuy Orthopaedics Inc [id number] Smartset High Viscosity Cement 40gm Bone Gentamicin - [id number] Implanted:Qty: 1 on 10/30/2017 by Andre Rivera MD at [facility] Right: Knee [employer] Inc 11/12/2018 [id number] / / [id number] Depuy Orthopaed[employer] Inc [id number] Attune Cemented Posterior Stabilize Knee Right 6 Narrow Component - [id number] Implanted:Qty: 1 on 10/30/2017 by Andre Rivera MD at [facility] Right: Knee [employer] Orth[employer]ed[employer] Inc 06/13/2027 [id number] / / [id number] Depuy Orthopaedics Inc [id number] Attune S+ Cement Fix Bearing Knee 6 Baseplate Tibial - [id number] Implanted:Qty: 1 on 10/30/2017 by Andre Rivera MD at [facility] Right: Knee [employer] Inc 04/13/2027 [id number] / / [id number] Depuy Orthopaed[employer] Inc [id number] Attune 8mm Posterior Stabilize Fix Bearing Knee 6 Insert Tibial - [id number] Implanted:Qty: 1 on 10/30/2017 by Andre Rivera MD at [facility] Right: Knee [employer] Inc 05/13/2022 [id number] / / [id number] Mirador [employer] Inc 876p-0400 Mini Ignite Power Mix Injectable Graft 4ml Synthetic Tissue - [id number] - [id number] Implanted:Qty: 1 on 07/09/2019 by Sae Su MD at [facility] Left: Ankle [employer] Inc 06/02/2023 [id number] / [id number] / Rankin [employer] Inc [id number] Infinity Ankle 4 Long Tray Tibial Adaptis - [id number] Implanted:Qty: 1 on 07/01/2020 by Sae Su MD at [facility] Left: Ankle [employer] [id number] 11/26/2026 [id number] / / [id number] [employer] Inc [id number] Taldome Infinity Adaptis Flatcut Sz3 - [id number] Implanted:Qty: 1 on 07/01/2020 by Sae Su MD at [facility] Left: Ankle [employer] [id number] 05/21/2028 [id number] / / [id number] [employer] [id number] Inbone 9mm Ankle 3+ Implant Fixation Everlast - [id number] Implanted:Qty: 1 on 07/01/2020 by Sae Su MD at [facility] Left: Ankle [employer] [id number] 05/28/2027 [id number] / / [id number] Allosource [id number] 23mm Wedge Frozen Spine Graft Bone Tricortical Ilium - [id number] Implanted:Qty: 1 on 07/01/2020 by Sae Su MD at [facility] Left: Foot Allosource 01/27/2025 [id number] / / [id number] [employer]aire [employer] 1620-509ns Steinmann 5/64in 9in Trocar Point One End Pin Fixation Stainless - [id number] Implanted:Qty: 1 on 07/01/2020 by Sae Su MD at [facility] Left: Foot [employer] [id number] / / Axogen Inc Avance 1-2mm 70mm Allograft Graft Nerve Sterile [id number] - S0 - [id number] Implanted:Qty: 1 on 04/04/2023 by Mani Oseguera MD at [facility] Left: Ankle Axogen Inc 07/13/2025 [id number] / 0 / [id number] [employer] Inc Inbone 11mm Ankle 3+ Implant Fixation Everlast [id number] - [id number] Implanted:Qty: 1 on 01/09/2024 by Sae Su MD at [facility] Left: Ankle [employer] Inc 11/09/2029 [id number] / / [id number] Explanted Type Area Dumpcart Driver Device Identifier Shelf Expiration Date Model / Serial / Lot [employer] 1624-509ns Steinmann 3/32mm 9in Trocar Point Pin Fixation Stainless Steel - [id number] Explanted:Qty: 1 on 07/09/2019 at [facility] Left: Ankle [employer] 1624-509NS / / [employer] Inc [id number] K-Wire 1.4mm 228mm Wire Fixation - [id number] Explanted:Qty: 4 on 07/01/2020 at [facility] Left: Ankle [employer] Inc [id number] / / [employer] 1600-9455ns Jesus .45in 9in 1 Trocar Point Orthopedic Wire Fixation - [id number] Explanted:Qty: 1 on 07/01/2020 at [facility] Left: Foot [employer] [id number] S / / Orthohelix [id number] Maxtorque 7mm 75mm Cannulated Self Drill Foot Ankle Petite Thread - [id number] Implanted:Qty: 1 on 07/09/2019 by Sae Su MD at [facility] Explanted:Qty: 1 on 07/01/2020 at [facility] Left: Ankle Orthohelix MSD-010-70 -075P / / Orthohelix [id number] Maxtorque 7mm 80mm Cannulated Self Drill Short Thread Screw Bone - [id number] Implanted:Qty: 1 on 07/09/2019 by Sae Su MD at [facility] Explanted:Qty: 1 on 07/01/2020 at [facility] Left: Ankle Orthohelix MSD-010-70 -[id number] / / Procedures Procedure Name Priority Date/Time Associated Diagnosis Comments XR ANKLE LEFT 3 OR MORE VIEWS Schedule Routine, Read Routine (OP Routine) 03/25/2024 7:39 AM SOCIAL INSURANCE ANALYST Left ankle pain, unspecified chronicity XR FOOT LEFT 3 OR MORE VIEWS Schedule Routine, Read Routine (OP Routine) 03/25/2024 7:39 AM SOCIAL INSURANCE ANALYST Pain in left foot ORTHO CASTING/SPLINTING Routine 02/21/19 8:31 AM SOCIAL INSURANCE ANALYST Left foot pain XR ANKLE LEFT 3 OR MORE VIEWS Schedule Routine, Read Routine (OP Routine) 02/22/2024 7:30 AM SOCIAL INSURANCE ANALYST Left ankle pain, unspecified chronicity XR FOOT LEFT 3 OR MORE VIEWS Schedule Routine, Read Routine (OP Routine) 02/22/2024 7:29 AM SOCIAL INSURANCE ANALYST Left foot pain [place] CAST SUP SHRT LEG FIBERGLASS Routine 02/05/2024 8:24 AM SOCIAL INSURANCE ANALYST Left ankle pain, unspecified chronicity [place] APPLICATION SHORT LEG CAST BELOW KNEE-TOE Routine 02/05/2024 8:24 AM SOCIAL INSURANCE ANALYST Left ankle pain, unspecified chronicity [place] CAST SUP SHRT LEG FIBERGLASS Routine 01/24/2024 12:25 PM SOCIAL INSURANCE ANALYST Left ankle pain, unspecified chronicity [place] APPLICATION SHORT LEG CAST BELOW KNEE-TOE Routine 01/24/2024 12:25 PM SOCIAL INSURANCE ANALYST Left ankle pain, unspecified chronicity XR FOOT LEFT 3 OR MORE VIEWS Schedule Routine, Read Routine (OP Routine) 01/24/2024 10:57 AM SOCIAL INSURANCE ANALYST Pain in left foot XR ANKLE LEFT 3 OR MORE VIEWS Schedule Routine, Read Routine (OP Routine) 01/24/2024 10:57 AM SOCIAL INSURANCE ANALYST Left ankle pain, unspecified chronicity EGFR Routine 01/09/2024 9:45 PM SOCIAL INSURANCE ANALYST DIFFERENTIAL AUTO Routine 01/09/2024 9:4 5 PM SOCIAL INSURANCE ANALYST CBC WITH AUTO DIFFERENTIAL Routine 01/09/2024 9:45 PM SOCIAL INSURANCE ANALYST BASIC METABOLIC PANEL Routine 01/09/2024 9:45 PM SOCIAL INSURANCE ANALYST FL FLUOROSCOPY < 1 HOUR IP Routine 01/09/20 12:10 PM SOCIAL INSURANCE ANALYST MYCOBACTERIOLOGY AFB CULTURE AND ACID-FAST STAIN Routine 01/09/2024 9:06 AM SOCIAL INSURANCE ANALYST MYCOLOGY (FUNGAL) CULTURE AND STAIN Routine 01/09/2024 9:06 AM SOCIAL INSURANCE ANALYST TISSUE AEROBIC AND ANAEROBIC CULTURE AND GRAM STAIN Routine 01/09/2024 9:06 AM SOCIAL INSURANCE ANALYST MYCOBACTERIOLOGY AFB CULTURE AND ACID-FAST STAIN Routine 01/09/2024 8:56 AM SOCIAL INSURANCE ANALYST MYCOLOGY (FUNGAL) CULTURE AND STAIN Routine 01/09/2024 8:56 AM SOCIAL INSURANCE ANALYST TISSUE AEROBIC AND ANAEROBIC CULTURE AND GRAM STAIN Routine 01/09/2024 8:56 AM SOCIAL INSURANCE ANALYST MYCOBACTERIOLOGY AFB CULTURE AND ACID-FAST STAIN Routine 01/09/2024 8:47 AM SOCIAL INSURANCE ANALYST MYCOLOGY (FUNGAL) CULTURE AND STAIN Routine 01/09/2024 8:47 AM SOCIAL INSURANCE ANALYST TISSUE AEROBIC AND ANAEROBIC CULTURE AND GRAM STAIN Routine 01/09/2024 8:47 AM SOCIAL INSURANCE ANALYST [place] AN PROCEDURE PLACEHOLDER Routine 01/09/2024 8:06 AM SOCIAL INSURANCE ANALYST [place] AN ELECTIVE ENDOTRACHEAL AIRWAY Routine 01/09/2024 8:06 AM SOCIAL INSURANCE ANALYST OSTEOTOMY CALCANEUS 01/09/2024 7 :32 AM SOCIAL INSURANCE ANALYST Deformity of ankle joint, right Case Notes 06/15: Message sent blank dpc -bt ARTHROPLASTY TOTAL ANKLE 01/09/2024 7:32 AM SOCIAL INSURANCE ANALYST Deformity of ankle joint, right Case Notes 06/15: Message sent blank dpc -bt from Last 3 Months Results * XR Ankle Left 3+ View (03/25/2024 7:39 AM SOCIAL INSURANCE ANALYST) Anatomical Region Laterality Modality Lower Extremities, Ankle Left Compute d Radiography 03/25/2024 8:54 AM SOCIAL INSURANCE ANALYST Impressions 03/25/2024 8:54 AM SOCIAL INSURANCE ANALYST 1. Unchanged revised left total ankle arthroplasty in near anatomic position with healing, instrumented medial displacement calcaneal calcaneal osteotomy. 2. Unchanged healed, solidly fused subtalar arthrodesis 3. Pes planovalgus The radiology attending physician has personally reviewed this study, and had reviewed and/or edited this written report and agrees with it. Electronically signed by: Figueroa Porras MD, PHD Narrative 03/25/2024 8:54 AM SOCIAL INSURANCE ANALYST EXAMINATION: XR FOOT LEFT 3 OR MORE VIEWS, XR ANKLE LEFT 3 OR MORE VIEWS HISTORY: Pain. FINDINGS: 3 radiographs of the left ankle are provided for interpretation. 3 radiographs of the left foot are provided for interpretation. Comparison made to 02/22/2024. The revision left total ankle arthroplasty appears unchanged and in near-anatomic position without evidence of periprosthetic cyst formation, loosening or fracture. Continued healing of an instrumented, medial displacement calcaneal osteotomy. Solidly fused, healed subtalar arthrodesis is unchanged. Pes planovalgus is again noted. Plantar calcaneal spur. Mild polyarticular midfoot and forefoot osteoarthritis is noted. Small heel spur is present. No acute fractures are noted. Procedure Note Figueroa Porras MD PhD - 03/25/2024 EXAMINATION: XR FOOT LEFT 3 OR MORE VIEWS, XR ANKLE LEFT 3 OR MORE VIEWS HISTORY: Pain. FINDINGS: 3 radiographs of the left ankle are provided for interpretation. 3 radiographs of the left foot are provided for interpretation. Comparison made to 02/22/2024. The revision left total ankle arthroplasty appears unchanged and in near-anatomic position without evidence of periprosthetic cyst formation, loosening or fracture. Continued healing of an instrumented, medial displacement calcaneal osteotomy. Solidly fused, healed subtalar arthrodesis is unchanged. Pes planovalgus is again noted. Plantar calcaneal spur. Mild polyarticular midfoot and forefoot osteoarthritis is noted. Small heel spur is present. No acute fractures are noted. IMPRESSION: 1. Unchanged revised left total ankle arthroplasty in near anatomic position with healing, instrumented medial displacement calcaneal calcaneal osteotomy. 2. Unchanged healed, solidly fused subtalar arthrodesis 3. Pes planovalgus The radiology attending physician has personally reviewed this study, and had reviewed and/or edited this written report and agrees with it. Electronically signed by: Figueroa Porras MD, PHD us Sae Su MD IMG XR PROCEDURES Chata l Result * XR Foot Left 3+ View (03/25/2024 7:39 AM SOCIAL INSURANCE ANALYST) Anatomical Region Laterality Modality Lower Extremities, Foot Left Computed Radiography 03/25/2024 8:54 AM SOCIAL INSURANCE ANALYST Impressions 03/25/2024 8:54 AM SOCIAL INSURANCE ANALYST 1. Unchanged revised left total ankle arthroplasty in near anatomic position with healing, instrumented medial displacement calcaneal calcaneal osteotomy. 2. Unchanged healed, solidly fused subtalar arthrodesis 3. Pes planovalgus The radiology attending physician has personally reviewed this study, and had reviewed and/or edited this written report and agrees with it. Electronically signed by: Figueroa Porras MD, PHD Narrative 03/25/2024 8:54 AM SOCIAL INSURANCE ANALYST EXAMINATION: XR FOOT LEFT 3 OR MORE VIEWS, XR ANKLE LEFT 3 OR MORE VIEWS HISTORY: Pain. FINDINGS: 3 radiographs of the left ankle are provided for interpretation. 3 radiographs of the left foot are provided for interpretation. Comparison made to 02/22/2024. The revision left total ankle arthroplasty appears unchanged and in near-anatomic position without evidence of periprosthetic cyst formation, loosening or fracture. Continued healing of an instrumented, medial displacement calcaneal osteotomy. Solidly fused, healed subtalar arthrodesis is unchanged. Pes planovalgus is again noted. Plantar calcaneal spur. Mild polyarticular midfoot and forefoot osteoarthritis is noted. Small heel spur is present. No acute fractures are noted. Procedure Note Figueroa Porras MD PhD - 03/25/2024 EXAMINATION: XR FOOT LEFT 3 OR MORE VIEWS, XR ANKLE LEFT 3 OR MORE VIEWS HISTORY: Pain. FINDINGS: 3 radiographs of the left ankle are provided for interpretation. 3 radiographs of the left foot are provided for interpretation. Comparison made to 02/22/2024. The revision left total ankle arthroplasty appears unchanged and in near-anatomic position without evidence of periprosthetic cyst formation, loosening or fracture. Continued healing of an instrumented, medial displacement calcaneal osteotomy. Solidly fused, healed subtalar arthrodesis is unchanged. Pes planovalgus is again noted. Plantar calcaneal spur. Mild polyarticular midfoot and forefoot osteoarthritis is noted. Small heel spur is present. No acute fractures are noted. IMPRESSION: 1. Unchanged revised left total ankle arthroplasty in near anatomic position with healing, instrumented medial displacement calcaneal calcaneal osteotomy. 2. Unchanged healed, solidly fused subtalar arthrodesis 3. Pes planovalgus The radiology attending physician has personally reviewed this study, and had reviewed and/or edited this written report and agrees with it. Electronically signed by: Figueroa Porras MD, PHD us Sae Su MD IMG XR PROCEDURES Chata l Result * Ortho Casting/Splinting Documentation (02/22/2024 8:31 AM SOCIAL INSURANCE ANALYST) Narrative Sae Su MD - 02/22/2024 8:31 AM SOCIAL INSURANCE ANALYST Teresita Simon MS 02/22/2024 8:31 AM Ortho Casting/Splinting Documentation Date/Time: 02/22/2024 8:31 AM Performed by: Teresita Simon MS Authorized by: Sae Su MD Sensation: Normal Skin Condition: Clean, dry, and intact [place]wood/Sutures Removed: No Pin Pulled: No Cast Removed: Yes (Removed by Charan Pedersen) Cast Applied: No (Patient went into their own boot.) Overwrap: No Location: Ankle Ankle: L ankle Supplies: Cast removal only Capillary Refill: Normal Patient tolerance of procedure: Tolerated well, no immediate complications Sae Su MD IN CLINIC/BEDSIDE [facility] CL[facility] Edited Result - Final * XR Ankle Left 3 or More Views (02/22/2024 7:30 AM SOCIAL INSURANCE ANALYST) Anatomical Region Laterality Modality Lower Extremities, Ankle Left Compute d Radiography 02/22/2024 7:41 AM SOCIAL INSURANCE ANALYST Impressions 02/22/2024 7:41 AM SOCIAL INSURANCE ANALYST Revision left total ankle arthroplasty in near-anatomic position. Healing instrumented calcaneal osteotomy. Electronically signed by: Aryan Spangler M.D. Narrative 02/22/2024 7:41 AM SOCIAL INSURANCE ANALYST EXAMINATION: XR FOOT LEFT 3 OR MORE [...] forefoot osteoarthritis. There is no acute fracture. Procedure Note Aryan [...] by: Aryan Spangler M.D. Sae Su MD [facility] XR PROCEDURES Chata l Result * XR Foot Left 3 or More Views (02/22/2024 7:29 AM SOCIAL INSURANCE ANALYST) Anatomical Region Laterality Modality Lower Extremities, Foot Left Computed Radiography 02/22/2024 7:41 AM SOCIAL INSURANCE ANALYST Impressions 02/22/2024 7:41 AM SOCIAL INSURANCE ANALYST Revision left total ankle arthroplasty in near-anatomic position. Healing instrumented calcaneal osteotomy. Electronically signed by: Aryan Spangler M.D. Narrative 02/22/2024 7:41 AM SOCIAL INSURANCE ANALYST EXAMINATION: XR FOOT LEFT 3 OR MORE [...] forefoot osteoarthritis. There is no acute fracture. Procedure Note Aryan [...] by: Aryan Spangler M.D. Sae Su MD [facility] XR PROCEDURES Chata l Result * [place] APPLICATION SHORT LEG CAST BELOW KNEE-TOE, [place] CAST SUP SHRT LEG FIBERGLASS (02/05/2024 8:24 AM SOCIAL INSURANCE ANALYST) Narrative Teresita Simon, - 02/05/2024 8:24 AM SOCIAL INSURANCE ANALYST Teresita Simon, MS 02/21/2024 8:24 AM Ortho Casting/Splinting Documentation Date/Time: 02/05/2024 8:24 AM Performed by: Oliverio Lou Authorized by: Sae Su MD Sensation: Normal Skin Condition: Clean, dry, and intact [place]wood/Sutures Removed: No Pin Pulled: No Cast Removed: Yes Cast Applied: Yes Overwrap: No Location: Ankle Ankle: L ankle Cast type: Short leg non weightbearing cast Supplies: Fiberglass Additional Supplies: Cotton padding, cotton stocking/sleeve, felt malleolar pads and felt tibia pads Number of fiberglass rolls used: 5 Capillary Refill: Normal Patient tolerance of procedure: Tolerated well, no immediate complications us Sae Su MD IN CLINIC/BEDSIDE DINA CLINE Final Result * [place] APPLICATION SHORT LEG CAST BELOW KNEE-TOE, [place] CAST SUP SHRT LEG FIBERGLASS (01/24/2024 12:25 PM SOCIAL INSURANCE ANALYST) Narrative Sae Su MD - 01/24/2024 12:25 PM SOCIAL INSURANCE ANALYST Sae Su MD 01/28/2024 12:59 AM Ortho Casting/Splinting Documentation Date/Time: 01/24/2024 12:25 PM Performed by: Charan Alvarez BS Authorized by: Sae Su MD Sensation: Normal Skin Condition: Clean, dry, and intact Gael/Sutures Removed: Yes Cast Removed: Yes Cast Applied: Yes Location: Foot Foot: L foot Cast type: Short leg non weightbearing cast Supplies: Fiberglass Additional Supplies: Cotton stocking/sleeve, cotton padding, felt malleolar pads, felt padding, xeroform, gauze and felt tibia pads Number of fiberglass rolls used: 5 Capillary Refill: Normal Patient tolerance of procedure: Tolerated well, no immediate complications us Sae Su MD [place] CLINIC/BEDSIDE DINA CLINE Edited Result - Final * XR Foot Left 3+ View (01/24/2024 10:57 AM SOCIAL INSURANCE ANALYST) Anatomical Region Laterality Modality Lower Extremities, Foot Left Computed Radiography 01/24/2024 4:10 PM SOCIAL INSURANCE ANALYST Impressions 01/24/2024 9:23 PM SOCIAL INSURANCE ANALYST Revision left total ankle arthroplasty in expected position with healing interval instrumented calcaneal osteotomy and surrounding soft tissue swelling. Dictated by: Avis Vega MD, MPH The radiology attending physician has personally reviewed this study, and had reviewed and/or edited this written report and agrees with it. Electronically signed by: Saji Hdz MD Narrative 01/24/2024 9:23 PM SOCIAL INSURANCE ANALYST EXAMINATION: XR ANKLE LEFT 3 OR MORE [...] Ankle Left 3+ View (01/24/2024 10:57 AM SOCIAL INSURANCE ANALYST) Anatomical Region Laterality Modality Lower Extremities, Ankle Left Compute d Radiography 01/24/2024 4:10 PM SOCIAL INSURANCE ANALYST Impressions 01/24/2024 9:23 PM SOCIAL INSURANCE ANALYST Revision left total ankle arthroplasty in expected position with healing interval instrumented calcaneal osteotomy and surrounding soft tissue swelling. Dictated by: Avis Vega MD, MPH The radiology attending physician has personally reviewed this study, and had reviewed and/or edited this written report and agrees with it. Electronically signed by: Saji Hdz MD Narrative 01/24/2024 9:23 PM SOCIAL INSURANCE ANALYST EXAMINATION: XR ANKLE LEFT 3 OR MORE [...] l Result * eGFR (01/09/2024 9:45 PM SOCIAL INSURANCE ANALYST) eGFR 83 >=60 mL/min/1. 73 m2 Comment: Interpretive Data Reference Interval Normal >/= 90 mL/min/1.73m2 Mildly decreased* 60 - 89 mL/min/1.73m2 Mildly to moderately decreased 45 - 59 mL/min/1.73m2 Moderately to severely decreased 30 - 44 mL/min/1.73m2 Severely decreased 15 - 29 mL/min/1.73m2 Kidney Failure < 15 mL/min/1.73m2 *Relative to young adult level Estimated glomerular [...] last reviewed 2020. Blood 01/09/2024 9:45 PM SOCIAL INSURANCE ANALYST 01/09/2024 10:26 PM SOCIAL INSURANCE ANALYST Halley Shields NP LAB BLOOD ORDERABLES Final Result [facility] [place] [address] * (ABNORMAL) Differential, auto (01/09/2024 9:45 PM SOCIAL INSURANCE ANALYST) Neutrophil abs 12.8(H) 1.5 - 6.5 K/cumm Imm gran abs 0.1 0.0 - 0.1 K/cumm [facility] Lymphocyte abs 1.4 0.8 - 3.3 K/cumm [facility] Monocyte abs 1.1(H) 0.2 - 0.8 K/cumm [facility] Eosinophil abs 0.0 0.0 - 0.5 K/cumm [facility] Basophil abs 0.0 0.0 - 0.1 K/cumm [facility] Neutrophil pct 82.8 % [facility] Comment: Interpretive Data Percent cell count reference ranges are not reported, since discordance with absolute values may lead to misinterpretation of CBC data. Current Interpretive Data was last revised on 2017. Imm gran pct 0.7 % [facility] Comment: Interpretive Data Percent cell count reference ranges are not reported, since discordance with absolute values may lead to misinterpretation of CBC data. Current Interpretive Data was last revised on 2017. Lymphocyte pct 9.2 % [facility] Comment: Interpretive Data Percent cell count reference ranges are not reported, since discordance with absolute values may lead to misinterpretation of CBC data. Current Interpretive Data was last revised on 2017. Monocyte pct 7.1 % [facility] Comment: Interpretive Data Percent cell count reference ranges are not reported, since discordance with absolute values may lead to misinterpretation of CBC data. Current Interpretive Data was last revised on 2017. Eosinophil pct 0.0 % [facility] Comment: Interpretive Data Percent cell count reference ranges are not reported, since discordance with absolute values may lead to misinterpretation of CBC data. Current Interpretive Data was last revised on 2017. Basophil pct 0.2 % [facility] Comment: Interpretive Data Percent cell count reference ranges are not reported, since discordance with absolute values may lead to misinterpretation of CBC data. Current Interpretive Data was last revised on 2017. Blood 01/09/2024 9:45 PM SOCIAL INSURANCE ANALYST 01/09/2024 10:25 PM SOCIAL INSURANCE ANALYST us Halley Shields NP LAB BLOOD ORDERABLES Final Result [facility] [place] [address] * (ABNORMAL) CBC with auto differential (01/09/2024 9:45 PM SOCIAL INSURANCE ANALYST) WBC 15.4(H) 3.8 - 9.9 K/cumm Hgb 14.5 13.0 - 17.5 g/dL [facility] Hct 43.9 38.9 - 50.3 % [facility] Plt 208 150 - 400 K/cumm [facility] MPV 9.4 9.1 - 12.3 fL [facility] RBC 4.87 4.30 - 5.80 M/cumm [facility] MCV 90.1 81.3 - 96.4 fL [facility] MCH 29.8 27.1 - 33.3 pg [facility] MCHC 33.0 32.3 - 35.7 g/dL [facility] RDW CV 13.8 11.1 - 14.9 % [facility] RDW SD 46.2 35.7 - 48.1 fL [facility] NRBC abs 0.00 0.00 - 0.01 K/cumm [facility] Blood 01/09/2024 9:45 PM SOCIAL INSURANCE ANALYST 01/09/2024 10:25 PM SOCIAL INSURANCE ANALYST us Halley Shields NP LAB BLOOD ORDERABLES Final Result [facility] [place] [address] * Basic metabolic panel (01/09/2024 9:45 PM SOCIAL INSURANCE ANALYST) Sodium 140 135 - 145 mmol/L Potassium, pl 4.5 3.3 - 4.9 mmol/L [facility] Chloride 102 97 - 110 mmol/L [facility] CO2 30 22 - 32 mmol/L [facility] Anion gap 8 2 - 15 mmol/L [facility] BUN 15 6 - 25 mg/dL [facility] Creatinine 1.03 0.80 - 1.30 mg/dL [facility] Glucose 104 70 - 199 mg/dL [facility] Comment: Interpretive Data Fasting glucose >/= 126 mg/dl is diagnostic for diabetes. Fasting is defined as no caloric intake [...] 2022. Calcium 8.7 8.5 - 10.3 mg/dL [facility] Blood 01/09/2024 9:45 PM SOCIAL INSURANCE ANALYST 01/09/2024 10:26 PM SOCIAL INSURANCE ANALYST Halley Shields NP LAB BLOOD ORDERABLES Final Result [facility] [place] [address] * FL Fluoroscopy < 1 Hour (01/09/2024 12:10 PM SOCIAL INSURANCE ANALYST) Narrative [facility] - 01/09/2024 12:10 PM SOCIAL INSURANCE ANALYST The images from this study are not interpreted by Radiology. Please refer to the physician's procedure / OR operative note. us Sae Su MD IMG FLUOROSCOPY PROCED URES Final Result Performing Organization Address [facility]/ZIP Co de Phone Number [email or web address] * Tissue aerobic and anaerobic culture and gram stain Tissue Ankle, left (01/09/2024 9:06 AM SOCIAL INSURANCE ANALYST) Direct Specimen Exam Stain: Rare polymorphonuclear leukocytes seen. No organisms seen. Report Final Report: No growth [facility] Tissue (Ankle, left) 01/09/2024 9:06 AM SOCIAL INSURANCE ANALYST 01/09/2024 2:04 PM SOCIAL INSURANCE ANALYST Narrative [facility] - 01/14/2024 9:47 AM SOCIAL INSURANCE ANALYST Left Ankle Anterior Joint Specimen received in anaerobic transport media. Testing performed by [facility] ([phone]) Specimens submitted from normally sterile body sites [...] interpretive data was last revised on 2019. us Sae Su MD LAB MICROBIOLOGY - GEN ERAL ORDERABLES Final Result Performing Organization Address [facility] Co de Phone Number [facility] [place] [address] * Mycology (fungal) culture and stain Tissue Ankle, left (01/09/2024 9:06 AM SOCIAL INSURANCE ANALYST) Direct Specimen Exam Stain: No Fungal elements seen. Report Final Report: No growth of fungus [facility] Tissue (Ankle, left) 01/09/2024 9:06 AM SOCIAL INSURANCE ANALYST 01/09/2024 2:04 PM SOCIAL INSURANCE ANALYST Narrative [facility] - 02/06/2024 10:50 AM SOCIAL INSURANCE ANALYST Left Ankle Anterior Joint Specimen received in anaerobic transport media. Testing performed by [facility] ([phone]). Sae Su MD LAB MICROBIOLOGY - GEN ERAL ORDERABLES Final Result Performing Organization Address [facility] de Phone Number [facility] [place] [address] * Mycobacteriology (AFB) culture and acid-fast stain Tissue Ankle, left (01/09/2024 9:06 AM SOCIAL INSURANCE ANALYST) Direct Specimen Exam Stain: No Acid-fast bacilli seen Direct Specimen Exam Auramine-Rho damine Stain: Previously reported results on this patient were deleted. [facility] Report Final Report: No growth of acid-fast bacilli [facility] Tissue (Ankle, left) 01/09/2024 9:06 AM SOCIAL INSURANCE ANALYST 01/09/2024 2:04 PM SOCIAL INSURANCE ANALYST Narrative [facility] - 03/12/2024 12:56 PM SOCIAL INSURANCE ANALYST Left Ankle Anterior Joint Specimen received in anaerobic transport media. Testing performed by [facility] ([phone]). Sae Su MD LAB MICROBIOLOGY - GEN ERAL ORDERABLES Final Result Performing Organization Address [facility] [place] [facility] de Phone Number [facility] [place] [address] * Tissue aerobic and anaerobic culture and gram stain Tissue Ankle, left (01/09/2024 8:56 AM SOCIAL INSURANCE ANALYST) Direct Specimen Exam Stain: No polymorphonuclear leukocytes seen. No organisms seen. Report Final Report: No growth [facility] Tissue (Ankle, left) 01/09/2024 8:56 AM SOCIAL INSURANCE ANALYST 01/09/2024 1:43 PM SOCIAL INSURANCE ANALYST Narrative [facility] - 01/14/2024 9:48 AM SOCIAL INSURANCE ANALYST Left Ankle Medial Gutter Specimen received in anaerobic transport media. Testing performed by [facility] ([phone]) Specimens submitted from normally sterile body sites [...] ERAL ORDERABLES Final Result Performing Organization Address [facility] de Phone Number [facility] [place] [address] * Mycology (fungal) culture and stain Tissue Ankle, left (01/09/2024 8:56 AM SOCIAL INSURANCE ANALYST) Direct Specimen Exam Stain: No Fungal elements seen. Report Final Report: No growth of fungus [facility] Tissue (Ankle, left) 01/09/2024 8:56 AM SOCIAL INSURANCE ANALYST 01/09/2024 1:43 PM SOCIAL INSURANCE ANALYST Narrative [facility] - 02/06/2024 10:51 AM SOCIAL INSURANCE ANALYST Left Ankle Medial Gutter Specimen received in anaerobic transport media. Testing performed by [facility] ([phone]). Sae Su MD LAB MICROBIOLOGY - GEN ERAL ORDERABLES Final Result Performing Organization Address [facility] de Phone Number [facility] [place] [address] * Mycobacteriology (AFB) culture and acid-fast stain Tissue Ankle, left (01/09/2024 8:56 AM SOCIAL INSURANCE ANALYST) Direct Specimen Exam Stain: No Acid-fast bacilli seen Direct Specimen Exam Auramine-Rho damine Stain: Previously reported results on this patient were deleted. [facility] Report Final Report: No growth of acid-fast bacilli [facility] Tissue (Ankle, left) 01/09/2024 8:56 AM SOCIAL INSURANCE ANALYST 01/09/2024 1:43 PM SOCIAL INSURANCE ANALYST Narrative [facility] - 03/12/2024 12:56 PM SOCIAL INSURANCE ANALYST Left Ankle Medial Gutter Specimen received in anaerobic transport media. Testing performed by [facility] ([phone]). Sae Su MD LAB MICROBIOLOGY - GEN ERAL ORDERABLES Final Result Performing Organization Address City/[facility] Co de Phone Number [facility] Department [place] [employer] [place] [address] * Tissue aerobic and anaerobic culture and gram stain Tissue Ankle, left (01/09/2024 8:47 AM SOCIAL INSURANCE ANALYST) Direct Specimen Exam Stain: No polymorphonuclear leukocytes seen. No organisms seen. Report Final Report: No growth [facility] Tissue (Ankle, left) 01/09/2024 8:47 AM SOCIAL INSURANCE ANALYST 01/09/2024 2:07 PM SOCIAL INSURANCE ANALYST Narrative [facility] - 01/14/2024 9:46 AM SOCIAL INSURANCE ANALYST Left Ankle Joint Capsule Specimen received in anaerobic transport media. Testing performed by [facility] ([phone]) Specimens submitted from normally sterile body sites [...] interpretive data was last revised on 2019. us Sae Su MD LAB MICROBIOLOGY - GEN ERAL ORDERABLES Final Result Performing Organization Address [facility] Co de Phone Number [facility] [place] [address] * Mycology (fungal) culture and stain Tissue Ankle, left (01/09/2024 8:47 AM SOCIAL INSURANCE ANALYST) Direct Specimen Exam Stain: No Fungal elements seen. Report Final Report: No growth of fungus [facility] Tissue (Ankle, left) 01/09/2024 8:47 AM SOCIAL INSURANCE ANALYST 01/09/2024 2:07 PM SOCIAL INSURANCE ANALYST Narrative [facility] - 02/06/2024 10:50 AM SOCIAL INSURANCE ANALYST Left Ankle Joint Capsule Specimen received in anaerobic transport media. Testing performed by [facility] ([phone]). Sae Su MD LAB MICROBIOLOGY - GEN ERAL ORDERABLES Final Result Performing Organization Address [facility] Co de Phone Number [facility] [place] [address] * Mycobacteriology (AFB) culture and acid-fast stain Tissue Ankle, left (01/09/2024 8:47 AM SOCIAL INSURANCE ANALYST) Direct Specimen Exam Stain: No Acid-fast bacilli seen Direct Specimen Exam Auramine-Rho damine Stain: Previously reported results on this patient were deleted. [facility] Report Final Report: No growth of acid-fast bacilli [facility] Tissue (Ankle, left) 01/09/2024 8:47 AM SOCIAL INSURANCE ANALYST 01/09/2024 2:07 PM SOCIAL INSURANCE ANALYST Narrative [facility] - 03/12/2024 12:56 PM SOCIAL INSURANCE ANALYST Left Ankle Joint Capsule Specimen received in anaerobic transport media. Testing performed by [facility] ([phone]). us Sae Su MD LAB MICROBIOLOGY - GEN ERAL ORDERABLES Final Result Performing Organization Address [facility] Co de Phone Number [facility] [place] [address] * [place] AN ELECTIVE ENDOTRACHEAL AIRWAY, [place] AN PROCEDURE PLACEHOLDER (01/09/2024 8:06 AM SOCIAL INSURANCE ANALYST) Stew King CRNA - 01/09/2024 8:06 AM SOCIAL INSURANCE ANALYST Stew Doyle CRNA 01/09/2024 8:07 AM Airway Patient location: OR Urgency: elective Indications for airway management: anesthesia Difficult airway: no Staff: Placed by: MACHINE LEAD BURNER: Stew Doyle CRNA Emergent airway documentation: Risks [...] from Last 3 Months Insurance [facility] [employer] [place] [employer] PPO [employer] OPEN ACCESS CIGNA Member Subscriber Plan / Payer (Ef fective 2020-Present) Name:Carly Lawson Annie Member ID:[id number] Relation to Subscriber:Self Name:Carly Lawson Subscriber ID:[id number] Payer ID:[id number] (NAIC) Group ID:[id number] Type:COMMERCIAL CIGNA IBEW Member Subscriber Plan / Payer (Ef fective 2002-Present) Name:Carly Lawson Annie Relation to Subscriber:Self Name:Carly Lawson Annie Payer ID:[id number] (NAIC) Group ID:[id number] Type:CIGNA HMO/PPO Address: [address] [place] [address] CIGNA HEALTHCARE PPO MEDICARE [employer] [place] Member Subscriber Plan / Payer (Ef fective 2021-Present) Name:Neel Carly Anine Relation to Subscriber:Self Name:Carly Lawson Annie Payer ID:[id number] Group ID:[id number] Type:COMMERCIAL Address: [address] [address] [place] [address] MEDICARE [employer] [place] Member Subscriber Plan / Payer (Ef fective 2018-Present) Name:Carly Lawson Relation to Subscriber:Self Name:Carly Lawson Payer ID:[id number] Group ID:[id number] Type:COMMERCIAL Address: [address] [address] [place] [address] Advance Directives For more information, please contact: [phone] * Full Code (Latest Code Status on [...] 5:22 PM 07/09/2019 5:25 AM Care Teams Hedis Specialist Relationship Specialty Start Date End Date Kristina Romero MD PCP - General 10/03/17 Chloe Lewis, MANUFACTURER Chemical Process Analyst Physical Therapy 10/20/17 Susan Pro PT Physical Therapist Physical Therapy 11/06/17
--- OUTSIDE RECORDS SUMMARY | 2024-03-28 07:26 | XMS_ITS | Encounter Summary ---
Author Organization [facility] Healthcare Address [address] [place] [address] Care Team Providers Care Tree Topper Name Role Phone Kristina Romero MD Primary Care Provider Chloe Lewis PTA Unavailable Unavailable Susan Pro PT Unavailable Unavailable Encounter Details Date Type Department Care Team (Late st Contact Info) Description 10/20/2020 Telephone [facility] [address] [place] [address] Shandra Smith MD PhD [address] [facility] [id number] [place], [place] [id number] Social History Tobacco Use Types Packs/Day Years [...] on file 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
--- OUTSIDE RECORDS SUMMARY | 2024-03-28 07:27 | XMS_ITS | Clinical Summary ---
Author Organization [facility] [address] Address [address] [place] [address] Care Team Providers Care Skate Maker Name Role Phone Kristina Romero MD Primary Care Provider Chloe Lewis EXPLOSIVE ORDNANCE SPECIALIST Unavailable Unavailable Susan Pro PT Unavailable Unavailable [...] Plan (09/18/2020 11:58 AM CDT): Mr. Carly Lawsno is a 55 y.o. male with PMH [...] (09/17/2020): Added automatically from request for surgery [id number] Assessment & Plan (12/21/2021 9:08 AM SDE): - Pt completed 1 year of treatment [...] then discuss stopping. 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 Overview (02/07/2019): Added automatically from request for surgery [id number] Encounter for preadmission testing 10/31/2017 Primary osteoarthritis of right knee 07/25/2016 Encounters Date Type Department Care Team Description 03/25/2024 7:40 AM SDE Office Visit [facility] [address] [place] [address] 2nd [address] [place] [address] Sae Su MD Pain in left foot (Primary Dx); Left ankle pain, unspecified chronicity 03/25/2024 7:30 AM SDE - 03/25/2024 11:59 PM SDE Hospital Encounter [facility] at the [address] [id number] Pain in left foot Discharge Disposition: Discharge to home or self care 03/25/2024 7:30 AM SDE - 03/25/2024 11:59 PM SDE Hospital Encounter [facility] [address] [place] [phone] Left ankle pain, unspecified chronicity Discharge Disposition: Discharge to home or self care 02/22/2024 7:21 AM SDE - 02/22/2024 11:59 PM SDE Hospital Encounter [facility] [address] [place] [address] Left ankle pain, unspecified chronicity Discharge Disposition: Discharge to home or self care 02/22/2024 7:20 AM SDE - 02/22/2024 11:59 PM SDE Hospital Encounter [facility] [address] [place] [address] Left foot pain Discharge Disposition: Discharge to home or self care 02/22/2024 7:00 AM SDE Office Visit [facility] [address] [place] [address] [address] [place] [phone] Sae Su MD Left foot pain (Primary Dx); Left ankle pain, unspecified chronicity 02/05/2024 2:10 PM SDE Office Visit [facility] [address] [place] [address] [address] [place] [phone] Sae Su MD Left ankle pain, unspecified chronicity (Primary Dx) 01/24/2024 10:46 AM SDE - 01/24/2024 11:59 PM SDE Hospital Encounter [facility] [address] [place] [phone] Pain in left foot Discharge Disposition: Discharge to home or self care 01/24/2024 10:45 AM SDE - 01/24/2024 11:59 PM SDE Hospital Encounter [facility] [address] [place] [phone] Left ankle pain, unspecified chronicity Discharge Disposition: Discharge to home or self care 01/24/2024 10:40 AM SDE Office Visit [facility] [address] [place] [address] [address] [place] [phone] Sae Su MD Left ankle pain, unspecified chronicity (Primary Dx); Pain in left foot 01/09/2024 7:30 AM SDE - 01/09/2024 12:15 PM SDE Surgery [facility] [address] [place] [address] Sae Su MD Left revision ankle replacement with gutter debridement and poly exchange, left medial displacement calcaneal osteoetomy 01/09/2024 7:27 AM SDE Anesthesia Event [facility] [address] [place] [phone] Merlin Urena MD Heuvelman, Katherine Marie, NP 01/09/2024 5:26 AM SDE - 01/10/2024 11:45 AM SDE Hospital Encounter [address] [phone] Sae Su MD Status post left ankle joint replacement (Primary Dx) Discharge Disposition: Discharge to home or self care 01/08/2024 Telephone [facility] [id number] [place] [address] 2nd Floor [address] [place] [address] Magy Oconnell CMA from Last 3 Months Immunizations Name Administration Dates Next Due Influenza, Quadrivalent, Spl it, Preservative Free, Intramuscular 11/23/2019,11/18/2017,11/17/2017 Influenza, Trivalent, IM (MDV) 02/26/2013,2013 Influenza, Unspecified 12/04/2023 Surgical History Surgery Date Site/Laterality Comments INGUINAL HERNIA REPAIR Right Hernia repair 1989' TESTICLE SURGERY Right benign growth removed from testicle ANKLE ARTHROSCOPY [...] on file Legal Sex Male 3:47 PM SDE Gender Identity Not on file Sexual Orientation Not on file Obstetrics History Last Filed Vital Signs Vital Sign Reading Time Taken Comments Blood Pressure 136/77 01/10/2024 8:20 AM SDE Pulse 86 01/10/2024 9:20 AM SDE Temperature 37 C (98.6 F) 01/10/2024 8:20 AM SDE Respiratory Rate 18 01/10/2024 8:20 AM SDE Oxygen Saturation 91% 01/10/2024 8:20 AM SDE Inhaled Oxygen Concentration - - Weight 108.9 kg (240 lb) 01/10/2024 8:20 AM SDE Height 182.9 cm (6') 01/10/2024 8:20 AM SDE Body Mass Index 32.55 01/10/2024 8:20 AM SDE Plan of Treatment Health Maintenance Due Date [...] Plan Chronic Care Management Improving( 9:30 AM SDE) Pau Perez, RN Note: Problem: Chronic Pain Goals: 1. Minimize further functional decline 2. Maximize quality of life 3. Control pain Strategies: - Activity/exercise program recommendation - Conservative stepwise pain medicine strategy with multi-disciplinary approach - Recommend healthy lifestyle strategies and compensatory methods as needed Medical Devices Implanted Type Area Vessel Slagman Device Identifier Shelf Expiration Date Model / Serial / Lot Orthohelix Maxtorque 7mm 47.5mm Cannulated Self Drill Foot Ankle Petite [id number] - [id number] Implanted:Qty: 1 on 01/09/2024 by Sae Su MD at [facility] Screw Left: Ankle Orthohelix MSD-010-70- 475P / / Orthohelix Screw Bone Maxtorque Short Thread L47.5 Mm Od5.5 Mm Foot Ankle Self Drill Cannulated Nonsterile [id number] - [id number] Implanted:Qty: 1 on 01/09/2024 by Sae Su MD at [facility] Screw Left: Ankle Orthohelix MSD-010-55- [id number] / / Depuy Orthopaed[employer] Inc [id number] Smartset High Viscosity Cement 40gm Bone Gentamicin - [id number] Implanted:Qty: 1 on 10/30/2017 by Andre Rivera MD at [facility] Right: Knee [employer] 11/12/2018 [id number] / / [id number] Depuy Orth[employer] [id number] Smartset High Viscosity Cement 40gm Bone Gentamicin - [id number] Implanted:Qty: 1 on 10/30/2017 by Andre Rivera MD at [facility] Right: Knee [employer] 11/12/2018 [id number] / / [id number] Dep[employer] [id number] Attune Cemented Posterior Stabilize Knee Right 6 Narrow Component - [id number] Implanted:Qty: 1 on 10/30/2017 by Andre Rivera MD at [facility] Right: Knee [employer] 06/13/2027 [id number] / / [id number] Depuy Orth[employer] [id number] Attune S+ Cement Fix Bearing Knee 6 Baseplate Tibial - [id number] Implanted:Qty: 1 on 10/30/2017 by Andre Rivera MD at [facility] Right: Knee [employer] 04/13/2027 [id number] / / [id number] Dep[employer] [id number] Attune 8mm Posterior Stabilize Fix Bearing Knee 6 Insert Tibial - [id number] Implanted:Qty: 1 on 10/30/2017 by Andre Rivera MD at [facility] Right: Knee [employer] 05/13/2022 [id number] / / [id number] [employer] [id number]-0400 Mini Ignite Power Mix Injectable Graft 4ml Synthetic Tissue - [id number] - [id number] Implanted:Qty: 1 on 07/09/2019 by Sae Su MD at [facility] Left: Ankle [employer] 06/02/2023 [id number] / [id number] / [employer] [id number] Infinity Ankle 4 Long Tray Tibial Adaptis - [id number] Implanted:Qty: 1 on 07/01/2020 by Sae Su MD at [facility] Advanced [facility] Left: Ankle [employer] [id number] 11/26/2026 [id number] / / [id number] [employer] [id number] Taldome Infinity Adaptis Flatcut Sz3 - [id number] Implanted:Qty: 1 on 07/01/2020 by Sae Su MD at [facility] Left: Ankle [employer] [id number] 05/21/2028 [id number] / / [id number] [employer] [id number] Inbone 9mm Ankle 3+ Implant Fixation Everlast - [id number] Implanted:Qty: 1 on 07/01/2020 by Sae Su MD at [facility] Left: Ankle [employer] [id number] 05/28/2027 [id number] / / [id number] Allosource [id number] 23mm Wedge Frozen Spine Graft Bone Tricortical Ilium - [id number] Implanted:Qty: 1 on 07/01/2020 by Sae Su MD at [facility] Left: Foot Allosource 01/27/2025 [id number] / / [id number] [employer] [id number] Steinmann 5/64in 9in Trocar Point One End Pin Fixation Stainless - [id number] Implanted:Qty: 1 on 07/01/2020 by Sae Su MD at [facility] Left: Foot [employer] [id number] / / Axogen Inc Avance 1-2mm 70mm Allograft Graft Nerve Sterile [id number] - S0 - [id number] Implanted:Qty: 1 on 04/04/2023 by Mani Oseguera MD at [facility] Left: Ankle [employer]ogen Inc 07/13/2025 [id number] / 0 / [id number] [employer] Inbone 11mm Ankle 3+ Implant Fixation Everlast [id number] - [id number] Implanted:Qty: 1 on 01/09/2024 by Sae Su MD at [facility] Left: Ankle [employer] 11/09/2029 [id number] / / [id number] Explanted Type Area Vessel Slagman Device Identifier Shelf Expiration Date Model / Serial / Lot [employer] 1624-509ns Steinmann 3/32mm 9in Trocar Point Pin Fixation Stainless Steel - [id number] Explanted:Qty: 1 on 07/09/2019 at [facility] Left: Ankle [employer] [id number] / / VTL [employer] Inc [id number] K-Wire 1.4mm 228mm Wire Fixation - [id number] Explanted:Qty: 4 on 07/01/2020 at [facility] Left: Ankle [employer] [id number] / / [employer] [id number] Jesus .45in 9in 1 Trocar Point Orthopedic Wire Fixation - [id number] Explanted:Qty: 1 on 07/01/2020 at [facility] Left: Foot [employer] [id number] S / / Orthohelix [id number] Maxtorque 7mm 75mm Cannulated Self Drill Foot Ankle Petite Thread - [id number] Implanted:Qty: 1 on 07/09/2019 by Sae Su MD at [facility] Explanted:Qty: 1 on 07/01/2020 at [facility] Left: Ankle Orthohelix MSD-010-70 -075P / / Orthohelix [id number] Maxtorque 7mm 80mm Cannulated Self Drill Short Thread Screw Bone - [id number] Implanted:Qty: 1 on 07/09/2019 by Sae Su MD at [facility] Explanted:Qty: 1 on 07/01/2020 at [facility] Left: Ankle Orthohelix MSD-010-70 -[id number] / / Procedures Procedure Name Priority Date/Time Associated Diagnosis Comments XR ANKLE LEFT 3 OR MORE VIEWS Schedule Routine, Read Routine (OP Routine) 03/25/2024 7:39 AM SDE Left ankle pain, unspecified chronicity XR FOOT LEFT 3 OR MORE VIEWS Schedule Routine, Read Routine (OP Routine) 03/25/2024 7:39 AM SDE Pain in left foot ORTHO CASTING/SPLINTING Routine 02/21/19 8:31 AM SDE Left foot pain XR ANKLE LEFT 3 OR MORE VIEWS Schedule Routine, Read Routine (OP Routine) 02/22/2024 7:30 AM SDE Left ankle pain, unspecified chronicity XR FOOT LEFT 3 OR MORE VIEWS Schedule Routine, Read Routine (OP Routine) 02/22/2024 7:29 AM SDE Left foot pain AR CAST SUP SHRT LEG FIBERGLASS Routine 02/05/2024 8:24 AM SDE Left ankle pain, unspecified chronicity AR APPLICATION SHORT LEG CAST BELOW KNEE-TOE Routine 02/05/2024 8:24 AM SDE Left ankle pain, unspecified chronicity AR CAST SUP SHRT LEG FIBERGLASS Routine 01/24/2024 12:25 PM SDE Left ankle pain, unspecified chronicity AR APPLICATION SHORT LEG CAST BELOW KNEE-TOE Routine 01/24/2024 12:25 PM SDE Left ankle pain, unspecified chronicity XR FOOT LEFT 3 OR MORE VIEWS Schedule Routine, Read Routine (OP Routine) 01/24/2024 10:57 AM SDE Pain in left foot XR ANKLE LEFT 3 OR MORE VIEWS Schedule Routine, Read Routine (OP Routine) 01/24/2024 10:57 AM SDE Left ankle pain, unspecified chronicity EGFR Routine 01/09/2024 9:45 PM SDE DIFFERENTIAL AUTO Routine 01/09/2024 9:4 5 PM SDE CBC WITH AUTO DIFFERENTIAL Routine 01/09/2024 9:45 PM SDE BASIC METABOLIC PANEL Routine 01/09/2024 9:45 PM SDE FL FLUOROSCOPY < 1 HOUR IP Routine 01/09/20 12:10 PM SDE MYCOBACTERIOLOGY AFB CULTURE AND ACID-FAST STAIN Routine 01/09/2024 9:06 AM SDE MYCOLOGY (FUNGAL) CULTURE AND STAIN Routine 01/09/2024 9:06 AM SDE TISSUE AEROBIC AND ANAEROBIC CULTURE AND GRAM STAIN Routine 01/09/2024 9:06 AM SDE MYCOBACTERIOLOGY AFB CULTURE AND ACID-FAST STAIN Routine 01/09/2024 8:56 AM SDE MYCOLOGY (FUNGAL) CULTURE AND STAIN Routine 01/09/2024 8:56 AM SDE TISSUE AEROBIC AND ANAEROBIC CULTURE AND GRAM STAIN Routine 01/09/2024 8:56 AM SDE MYCOBACTERIOLOGY AFB CULTURE AND ACID-FAST STAIN Routine 01/09/2024 8:47 AM SDE MYCOLOGY (FUNGAL) CULTURE AND STAIN Routine 01/09/2024 8:47 AM SDE TISSUE AEROBIC AND ANAEROBIC CULTURE AND GRAM STAIN Routine 01/09/2024 8:47 AM SDE AR AN PROCEDURE PLACEHOLDER Routine 01/09/2024 8:06 AM SDE AR AN ELECTIVE ENDOTRACHEAL AIRWAY Routine 01/09/2024 8:06 AM SDE OSTEOTOMY CALCANEUS 01/09/2024 7 :32 AM SDE Deformity of ankle joint, right Case Notes 05: Message sent blank dpc -bt ARTHROPLASTY TOTAL ANKLE 01/09/2024 7:32 AM SDE Deformity of ankle joint, right Case Notes 05: Message sent blank dpc -bt from Last 3 Months Results * XR Ankle Left 3+ View (03/25/2024 7:39 AM SDE) Anatomical Region Laterality Modality Lower Extremities, Ankle Left Compute d Radiography 03/25/2024 8:54 AM SDE Impressions 03/25/2024 8:54 AM SDE 1. Unchanged revised left total ankle arthroplasty in near anatomic position with healing, instrumented medial displacement calcaneal calcaneal osteotomy. 2. Unchanged healed, solidly fused subtalar arthrodesis 3. Pes planovalgus The radiology attending physician has personally reviewed this study, and had reviewed and/or edited this written report and agrees with it. Electronically signed by: Figueroa Porras MD, PHD Narrative 03/25/2024 8:54 AM SDE EXAMINATION: XR FOOT LEFT 3 OR MORE [...] Foot Left 3+ View (03/25/2024 7:39 AM SDE) Anatomical Region Laterality Modality Lower Extremities, Foot Left Computed Radiography 03/25/2024 8:54 AM SDE Impressions 03/25/2024 8:54 AM SDE 1. Unchanged revised left total ankle arthroplasty in near anatomic position with healing, instrumented medial displacement calcaneal calcaneal osteotomy. 2. Unchanged healed, solidly fused subtalar arthrodesis 3. Pes planovalgus The radiology attending physician has personally reviewed this study, and had reviewed and/or edited this written report and agrees with it. Electronically signed by: Figueroa Porras MD, PHD Narrative 03/25/2024 8:54 AM SDE EXAMINATION: XR FOOT LEFT 3 OR MORE [...] * Ortho Casting/Splinting Documentation (02/22/2024 8:31 AM SDE) Narrative Sae Su MD - 02/22/2024 8:31 AM SDE Teresita Simon MS 02/22/2024 8:31 AM Ortho Casting/Splinting Documentation Date/Time: 02/22/2024 8:31 AM Performed by: Teresita Simon MS Authorized by: Sae Su MD Sensation: Normal Skin Condition: Clean, dry, and intact Martin/Sutures Removed: No Pin Pulled: No Cast Removed: [...] 3 or More Views (02/22/2024 7:30 AM SDE) Anatomical Region Laterality Modality Lower Extremities, Ankle Left Compute d Radiography 02/22/2024 7:41 AM SDE Impressions 02/22/2024 7:41 AM SDE Revision left total ankle arthroplasty in near-anatomic position. Healing instrumented calcaneal osteotomy. Electronically signed by: Aryan Spangler M.D. Narrative 02/22/2024 7:41 AM SDE EXAMINATION: XR FOOT LEFT 3 OR MORE [...] 3 or More Views (02/22/2024 7:29 AM SDE) Anatomical Region Laterality Modality Lower Extremities, Foot Left Computed Radiography 02/22/2024 7:41 AM SDE Impressions 02/22/2024 7:41 AM SDE Revision left total ankle arthroplasty in near-anatomic position. Healing instrumented calcaneal osteotomy. Electronically signed by: Aryan Spangler M.D. Narrative 02/22/2024 7:41 AM SDE EXAMINATION: XR FOOT LEFT 3 OR MORE [...] IMG XR PROCEDURES Chata l Result * AR APPLICATION SHORT LEG CAST BELOW KNEE-TOE, AR CAST SUP SHRT LEG FIBERGLASS (02/05/2024 8:24 AM SDE) Narrative Teresita Simon MS - 02/05/2024 8:24 AM SDE Teresita Simon MS 02/21/2024 8:24 AM Ortho Casting/Splinting Documentation Date/Time: 02/05/2024 8:24 AM Performed by: Oliverio Lou Authorized by: Sae Su MD Sensation: Normal Skin Condition: Clean, dry, and intact Gael/Sutures Removed: No Pin Pulled: No Cast Removed: Yes Cast Applied: Yes Overwrap: No Location: Ankle Ankle: L ankle Cast type: Short leg non weightbearing cast Supplies: Fiberglass Additional Supplies: Cotton padding, cotton stocking/sleeve, felt malleolar pads and felt tibia pads Number of fiberglass rolls used: 5 Capillary Refill: Normal Patient tolerance of procedure: Tolerated well, no immediate complications us aSe Su MD IN CLINIC/BEDSIDE [facility] Final Result * AR APPLICATION SHORT LEG CAST BELOW KNEE-TOE, AR CAST SUP SHRT LEG FIBERGLASS (01/24/2024 12:25 PM SDE) Narrative Sae Su MD - 01/24/2024 12:25 PM SDE Sae Su MD 01/28/2024 12:59 AM Ortho [...] Foot Left 3+ View (01/24/2024 10:57 AM SDE) Anatomical Region Laterality Modality Lower Extremities, Foot Left Computed Radiography 01/24/2024 4:10 PM SDE Impressions 01/24/2024 9:23 PM SDE Revision left total ankle arthroplasty in expected position with healing interval instrumented calcaneal osteotomy and surrounding soft tissue swelling. Dictated by: Avis Vega MD, MPH The radiology attending physician has personally reviewed this study, and had reviewed and/or edited this written report and agrees with it. Electronically signed by: Saji Hdz MD Narrative 01/24/2024 9:23 PM SDE EXAMINATION: XR ANKLE LEFT 3 OR MORE [...] Ankle Left 3+ View (01/24/2024 10:57 AM SDE) Anatomical Region Laterality Modality Lower Extremities, Ankle Left Compute d Radiography 01/24/2024 4:10 PM SDE Impressions 01/24/2024 9:23 PM SDE Revision left total ankle arthroplasty in expected position with healing interval instrumented calcaneal osteotomy and surrounding soft tissue swelling. Dictated by: Avis Vega MD, MPH The radiology attending physician has personally reviewed this study, and had reviewed and/or edited this written report and agrees with it. Electronically signed by: Saji Hdz MD Narrative 01/24/2024 9:23 PM SDE EXAMINATION: XR ANKLE LEFT 3 OR MORE [...] l Result * eGFR (01/09/2024 9:45 PM SDE) eGFR 83 >=60 mL/min/1. 73 m2 Comment: [...] last reviewed 2020. Blood 01/09/2024 9:45 PM SDE 01/09/2024 10:26 PM SDE us Halley Shields NP LAB BLOOD ORDERABLES Final Result JAYA PRYOR [facility] [place] [address] * (ABNORMAL) Differential, auto (01/09/2024 9:45 PM SDE) Neutrophil abs 12.8(H) 1.5 - 6.5 K/cumm Imm gran abs 0.1 0.0 - 0.1 K/cumm [facility] Lymphocyte abs 1.4 0.8 - 3.3 K/cumm [facility] Monocyte abs 1.1(H) 0.2 - 0.8 K/cumm [facility] Eosinophil abs 0.0 0.0 - 0.5 K/cumm [facility] Basophil abs 0.0 0.0 - 0.1 K/cumm [facility] Neutrophil pct 82.8 % [facility] Comment: Interpretive Data Percent cell count reference ranges are not reported, since discordance with absolute values may lead to misinterpretation of CBC data. Current Interpretive Data was last revised on 2017. Imm gran pct 0.7 % [facility] Comment: Interpretive Data Percent cell count reference ranges are not reported, since discordance with absolute values may lead to misinterpretation of CBC data. Current Interpretive Data was last revised on 2017. Lymphocyte pct 9.2 % [facility] Comment: Interpretive Data Percent cell count reference ranges are not reported, since discordance with absolute values may lead to misinterpretation of CBC data. Current Interpretive Data was last revised on 2017. Monocyte pct 7.1 % [facility] Comment: Interpretive Data Percent cell count reference ranges are not reported, since discordance with absolute values may lead to misinterpretation of CBC data. Current Interpretive Data was last revised on 2017. Eosinophil pct 0.0 % [facility] Comment: Interpretive Data Percent cell count reference ranges are not reported, since discordance with absolute values may lead to misinterpretation of CBC data. Current Interpretive Data was last revised on 2017. Basophil pct 0.2 % [facility] Comment: Interpretive Data Percent cell count reference ranges are not reported, since discordance with absolute values may lead to misinterpretation of CBC data. Current Interpretive Data was last revised on 2017. Blood 01/09/2024 9:45 PM SDE 01/09/2024 10:25 PM SDE us Halley Shields NP LAB BLOOD ORDERABLES Final Result [facility] Department [place] [address] * (ABNORMAL) CBC with auto differential (01/09/2024 9:45 PM SDE) [facility] WBC 15.4(H) 3.8 - 9.9 K/cumm Hgb 14.5 13.0 - 17.5 g/dL [facility] Hct 43.9 38.9 - 50.3 % [facility] Plt 208 150 - 400 K/cumm [facility] MPV 9.4 9.1 - 12.3 fL [facility] RBC 4.87 4.30 - 5.80 M/cumm [facility] MCV 90.1 81.3 - 96.4 fL [facility] MCH 29.8 27.1 - 33.3 pg [facility] MCHC 33.0 32.3 - 35.7 g/dL [facility] RDW CV 13.8 11.1 - 14.9 % [facility] RDW SD 46.2 35.7 - 48.1 fL [facility] NRBC abs 0.00 0.00 - 0.01 K/cumm [facility] Blood 01/09/2024 9:45 PM SDE 01/09/2024 10:25 PM SDE us Halley Shields [employer] DRUG INSPECTOR LAB BLOOD ORDERABLES Final Result JAYA [facility] Department [place] [address] * Basic metabolic panel (01/09/2024 9:45 PM SDE) [facility] Sodium 140 135 - 145 mmol/L Potassium, pl 4.5 3.3 - 4.9 mmol/L [facility] Chloride 102 97 - 110 mmol/L [facility] CO2 30 22 - 32 mmol/L [facility] Anion gap 8 2 - 15 mmol/L [facility] BUN 15 6 - 25 mg/dL [facility] Creatinine 1.03 0.80 - 1.30 mg/dL [facility] Glucose 104 70 - 199 mg/dL [facility] Comment: Interpretive Data Fasting glucose >/= 126 [...] 2022. Calcium 8.7 8.5 - 10.3 mg/dL [facility] Blood 01/09/2024 9:45 PM SDE 01/09/2024 10:26 PM SDE us Halley Shields FO[employer] AND DRUG INSPECTOR LAB BLOOD ORDERABLES Final Result Performing Organization Address [facility]/ZIP Co de Phone Number [facility] Department [place] [address] * FL Fluoroscopy < 1 Hour (01/09/2024 12:10 PM SDE) Narrative [facility] - 01/09/2024 12:10 PM SDE The images from this study are not interpreted by Radiology. Please refer to the physician's procedure / OR operative note. us Sae Su MD IMG FLUOROSCOPY PROCED URES Final Result Performing Organization Address [facility] Co de Phone Number [facility] * Tissue aerobic and anaerobic culture and gram stain Tissue Ankle, left (01/09/2024 9:06 AM SDE) Direct Specimen Exam Stain: Rare polymorphonuclear leukocytes seen. No organisms seen. Report Final Report: No growth [facility] Tissue (Ankle, left) 01/09/2024 9:06 AM SDE 01/09/2024 2:04 PM SDE Narrative [facility] - 01/14/2024 9:47 AM SDE Left Ankle Anterior Joint Specimen received in anaerobic transport media. Testing performed by [facility] ([phone]) Specimens submitted from normally sterile body sites [...] ERAL ORDERABLES Final Result Performing Organization Address City/[facility]/ZIP Co de Phone Number [facility] Department [place] [address] * Mycology (fungal) culture and stain Tissue Ankle, left (01/09/2024 9:06 AM SDE) Direct Specimen Exam Stain: No Fungal elements seen. Report Final Report: No growth of fungus [facility] Tissue (Ankle, left) 01/09/2024 9:06 AM SDE 01/09/2024 2:04 PM SDE Narrative [facility] - 02/06/2024 10:50 AM SDE Left Ankle Anterior Joint Specimen received in anaerobic transport media. Testing performed by [facility] ([phone]). Sae Su MD LAB MICROBIOLOGY - GEN ERAL ORDERABLES Final Result Performing Organization Address City/[facility]/ZIP Co de Phone Number [facility] Department [place] [address] * Mycobacteriology (AFB) culture and acid-fast stain Tissue Ankle, left (01/09/2024 9:06 AM SDE) Direct Specimen Exam Stain: No Acid-fast bacilli seen Direct Specimen Exam Auramine-Rho damine Stain: Previously reported results on this patient were deleted. [facility] Report Final Report: No growth of acid-fast bacilli [facility] Tissue (Ankle, left) 01/09/2024 9:06 AM SDE 01/09/2024 2:04 PM SDE Narrative [facility] - 03/12/2024 12:56 PM SDE Left Ankle Anterior Joint Specimen received in anaerobic transport media. Testing performed by [facility] ([phone]). Sae Su MD LAB MICROBIOLOGY - GEN ERAL ORDERABLES Final Result Performing Organization Address [facility] Co de Phone Number [facility] Department [place] [address] * Tissue aerobic and anaerobic culture and gram stain Tissue Ankle, left (01/09/2024 8:56 AM SDE) Direct Specimen Exam Stain: No polymorphonuclear leukocytes seen. No organisms seen. Report Final Report: No growth [facility] Tissue (Ankle, left) 01/09/2024 8:56 AM SDE 01/09/2024 1:43 PM SDE Narrative [facility] - 01/14/2024 9:48 AM SDE Left Ankle Medial Gutter Specimen received in anaerobic transport media. Testing performed by [facility] ([phone]) Specimens submitted from normally sterile body sites [...] ERAL ORDERABLES Final Result Performing Organization Address City/[facility] Co de Phone Number [facility] Department [place] [address] * Mycology (fungal) culture and stain Tissue Ankle, left (01/09/2024 8:56 AM SDE) Direct Specimen Exam Stain: No Fungal elements seen. Report Final Report: No growth of fungus [facility] Tissue (Ankle, left) 01/09/2024 8:56 AM SDE 01/09/2024 1:43 PM SDE Narrative [facility] 02/06/2024 10:51 AM SDE Left Ankle Medial Gutter Specimen received in anaerobic transport media. Testing performed by [facility] ([phone]). Sae Su MD LAB MICROBIOLOGY - GEN ERAL ORDERABLES Final Result Performing Organization Address City/[facility]/ZIP Co de Phone Number [facility] Department [place] [address] * Mycobacteriology (AFB) culture and acid-fast stain Tissue Ankle, left (01/09/2024 8:56 AM SDE) Pathologist [facility] Direct Specimen Exam Stain: No Acid-fast bacilli seen Direct Specimen Exam Auramine-Rho damine Stain: Previously reported results on this patient were deleted. [facility] Report Final Report: No growth of acid-fast bacilli [facility] Tissue (Ankle, left) 01/09/2024 8:56 AM SDE 01/09/2024 1:43 PM SDE Narrative [facility] - 03/12/2024 12:56 PM SDE Left Ankle Medial Gutter Specimen received in anaerobic transport media. Testing performed by [facility] ([phone]). us Sae Su MD LAB MICROBIOLOGY - GEN ERAL ORDERABLES Final Result [facility] Department [place] [address] * Tissue aerobic and anaerobic culture and gram stain Tissue Ankle, left (01/09/2024 8:47 AM SDE) Direct Specimen Exam Stain: No polymorphonuclear leukocytes seen. No organisms seen. Report Final Report: No growth [facility] Tissue (Ankle, left) 01/09/2024 8:47 AM SDE 01/09/2024 2:07 PM SDE Narrative [facility] - 01/14/2024 9:46 AM SDE Left Ankle Joint Capsule Specimen received in anaerobic transport media. Testing performed by [facility] ([phone]) Specimens submitted from normally sterile body sites [...] ERAL ORDERABLES Final Result Performing Organization Address City/[facility]/ZIP Co de Phone Number [facility] Department [place] [address] * Mycology (fungal) culture and stain Tissue Ankle, left (01/09/2024 8:47 AM SDE) Direct Specimen Exam Stain: No Fungal elements seen. Report Final Report: No growth of fungus [facility] Tissue (Ankle, left) 01/09/2024 8:47 AM SDE 01/09/2024 2:07 PM SDE Narrative [facility] - 02/06/2024 10:50 AM SDE Left Ankle Joint Capsule Specimen received in anaerobic transport media. Testing performed by [facility] ([phone]). us Sae Su MD LAB MICROBIOLOGY - GEN ERAL ORDERABLES Final Result [facility] Department [place] [address] * Mycobacteriology (AFB) culture and acid-fast stain Tissue Ankle, left (01/09/2024 8:47 AM SDE) Direct Specimen Exam Stain: No Acid-fast bacilli seen Direct Specimen Exam Auramine-Rho damine Stain: Previously reported results on this patient were deleted. [facility] Report Final Report: No growth of acid-fast bacilli [facility] Tissue (Ankle, left) 01/09/2024 8:47 AM SDE 01/09/2024 2:07 PM SDE Narrative [facility] - 03/12/2024 12:56 PM SDE Left Ankle Joint Capsule Specimen received in anaerobic transport media. Testing performed by [facility] ([phone]). us Sae Su MD LAB MICROBIOLOGY - GEN ERAL ORDERABLES Final Result [facility] Department [place] [address] * AR AN ELECTIVE ENDOTRACHEAL AIRWAY, AR AN PROCEDURE PLACEHOLDER (01/09/2024 8:06 AM SDE) Narrative Stew Doyle CRNA - 01/09/2024 8:06 AM SDE Stew Doyle CRNA 01/09/2024 8:07 AM Airway Patient location: OR Urgency: elective Indications for airway management: anesthesia Difficult airway: no Staff: Placed by: HISTORY TUTOR: Stew Doyle CRNA Emergent airway documentation: Risks [...] Res ult from Last 3 Months Insurance [facility] [employer] [place] [facility] CIG[employer] Member Subscriber Plan / Payer (Ef fective 2020-Present) Name:Carly Lawson Member ID:[id number] Relation to Subscriber:Self Name:Carly Lawson Subscriber ID:[id number] Payer ID:[id number] ([facility]) Group ID:[id number] Type:COMMERCIAL [facility] Member Subscriber Plan / Payer (Ef fective 2002-Present) Name:Carly Lawson Relation to Subscriber:Self Name:Carly Lawson Payer ID:[id number] ([facility]) Group ID:[id number] Type:CIGNA HMO/PPO Address: [facility] [address] [place] [address] [facility] [employer] [place] Member Subscriber Plan / Payer (Ef fective 2021-Present) Name:Carly Lawson Relation to Subscriber:Self Name:Carly Lawson Payer ID:[id number] Group ID:[id number] Type:COMMERCIAL Address: [id number] [place] [address] MEDICARE [employer] [place] Member Subscriber Plan / Payer (Ef fective 2018-Present) Name:Carly Lawson Relation to Subscriber:Self Name:Carly Lawson Payer ID:[id number] Group ID:[id number] Type:COMMERCIAL Address: [place] [address] Advance Directives For more information, please contact: [phone] * Full Code (Latest Code Status on [...] 5:22 PM 07/09/2019 5:25 AM Care Teams Skate Maker Relationship Specialty Start Date End Date Kristina Romero MD PCP - General 10/03/17 Chloe Lewis, EXPLOSIVE ORDNANCE SPECIALIST Is Support Analyst Physical Therapy 10/20/17 Susan Pro, TAMY Physical Therapist Physical Therapy 11/06/17
--- OUTSIDE RECORDS SUMMARY | 2024-03-28 07:27 | XMS_ITS | Continuity of Care Document ---
Author Organization [facility] Address [address] [place] [address] Phone Care Team Providers Care Education Coordinator Name Role Phone Administrative, Provider Unavailable Unavail [...] Date Provider Providers Copied on Encounter [facility], [address], [id number], [place] tel:[phone] [facility] No Information 8 Administrative Provider. [address] [facility], [place], [place], [id number], [place]. tel:[phone] [facility], [address] [place] [address], [id number], [place] tel:[phone] [facility] No Information 8 Blank Ramos. [address], [address], [place], [place], [id number], [place]. tel:[phone] Independent Medical Examination [facility], [address], [id number], tel:[phone] [facility] right shoulder (chief complaint) Pain in right shoulder 8 Blank Ramos. [address] [facility] [facility] [address], [place], [place], [id number], [place]. tel:[phone] Independent Medical Examination [facility], [address] [facility] [address], [place], [id number], tel:[phone] [facility] right shoulder (chief complaint) Pain in right shoulder 7 Blank Ramos. [address] [facility], [address] [place] [address], [place], [place], [id number], [place]. tel:[phone] Family History Family Member Type Diagnosis Age At Onset Problem (finding) Family history of gout Problem (finding) Family history of Diabe gary mellitus Problem (finding) Family history of Arthr itis Problem (finding) Family history of Cance r, unknown Payers Payer name Insurance type Covered libertarian ID Authoriza tion(s) No Information Social History [...]
--- OUTSIDE RECORDS SUMMARY | 2024-03-28 07:27 | XMS_ITS | Clinical Summary ---
Author Organization [facility] Address [address] [facility], [address] [address] Phone Care Team Providers Care Pararescue Craftsman Name Role Phone Kristina Romero MD Primary [...] 82 05/04/2022 12:42 PM CDT Temperature 36 C (96.8 F) 05/04/2022 12:42 PM CDT Respiratory Rate 19 05/04/2022 12:42 PM CDT Oxygen Saturation 100% 05/04/2022 12:42 PM CDT Inhaled Oxygen Concentration - - Weight 108.9 kg (240 lb) 04/15/2022 9:00 AM EPIC SPECIALIST Height 180.3 cm (5' 11 ) 04/15/2022 9:00 AM EPIC SPECIALIST Body Mass Index 33.47 04/15/2022 9:00 AM EPIC SPECIALIST Plan of Treatment Health Maintenance Due Date [...] Subscriber Plan / Payer (Ef fective 2022-Present) Name:Stephen Shaikh Relation to Subscriber:Self Name:Stephen Shaikh Payer ID:[id number] Group ID:[id number] Type:Not on file Address: [address] [address] [place] [address] Care Teams Pararescue Craftsman Relationship Specialty Start Date End Date Kristina Romero MD PCP - General Family Medicine 12/23/21
[2024-03-28 07:38] VITALS: BMI 34.7
[2024-03-28 07:39] VITALS: BP 130/88; PULSE 82; RESP 20; TEMP 36.3; O2SAT 96
[2024-03-28] MEDS: LACTATED RINGERS 1,000 ML 30 ML IV CONT (07:57)
--- NOTE | 2024-03-28 08:01 | WPDANESEPPF ---
Anes - Initial Pre Proc Eval Procedure: Operation Date: 03/28/24 09:00 Proposed Procedures p Excision Mass Right Forearm - Alex Yanes MD Date/Time: 03/28/24 08:01 Surgeon: Alex Yanes MD Pre Op Diagnosis: Localized Swelling, Mass and Lump RT Upp.Extremity Patient Data Age: 58 Gender: M Height: 1.83 m Weight: 116.1 kg Last Vital Signs Temp 36.3 C L 03/28/24 07:39 Pulse 82 03/28/24 07:39 Resp 20 03/28/24 07:39 BP 130/88 03/28/24 07:39 Pulse Ox 96 03/28/24 07:39 O2 Del Method Room Air 03/28/24 07:39 Allergies Allergy/AdvReac Type Severity Reaction Status Date / Time No Known Allergies Allergy Verified 03/28/24 07:28 Home Medications ?Medication ?Instructions ?Recorded ?Confirmed ?Type allopurinol 300 mg tablet 300 mg PO DAILY #90 tabs 12/12/23 03/28/24 Rx ascorbic acid (vitamin C) 1,000 mg 1 g PO DAILY 03/07/24 03/28/24 History tablet (Vitamin C) tramadol 50 mg tablet 50 mg PO Q6H PRN pain #12 tabs 03/28/24 Rx Patient hx anesthesia problems: none Family hx anesthesia problems: none Results Review: All pre-operative results and documents have been reviewed as part of the pre-operative evaluation. [facility] Past Medical History Medical History Septic arthritis of knee, left (~08/2020) Septic arthritis of left ankle (~05/2021) Unspecified osteoarthritis, unspecified site Idiopathic gout Surgical History Surgical History H/O foot surgery History of left knee surgery (~08/2020) for septic arthritis of left knee History of left ankle joint replacement (~06/2020) 06/2020 and 12/2023 History of arthrodesis (~07/2019) 07/2019 - left ankle History of testicular surgery (~2012) 2012 History of hernia surgery around 1989 History of tonsillectomy and adenoidectomy during teens History of shoulder surgery (~2016) 2017 - Right shoulder History of knee surgery (~10/2017) 10/2017 - right knee Family History Family History Father Diabetes mellitus Mother Breast cancer Colon cancer Social History Social History Smoking packs per day: 1 Smoking cigarettes per day: 20.0 Years smoked: 29 Smoking pack-years: 29.00 Smoking status: Former smoker Tobacco type: cigarettes Second hand tobacco smoke exposure: No Smoking end date: 02/13/91 Additional smoking assessment comments: quit over 30 years ago Alcohol intake: current Alcohol use details: 0-1 Substance use: never Substance use type: does not use Living arrangements: with family Additional living arrangements comments: Occupation/Education: retired Gender identity (if verbalized by the patient): Male Sexual Orientation (if Verbalized by the Patient): Straight or Heterosexual Anes - Eval Final PreProcedure Day of Procedure 03/28/24 08:01 Patient weight: obese Heart: regular rate and rhythm Lungs: decreased breath sounds Airway: Mallampati scale class II Neurological: alert and oriented Last oral intake: >/= 8 hours ASA classification: III Emergent: no Anesthetic plan: proceed Anesthesia type and monitoring: general GIVS and standard monitoring Results Review: All pre-operative results and documents have been reviewed as part of the pre-operative evaluation. Informed Consent: The patient's anesthetic plan and its attendant risks and benefits were discussed with the patient/family/POA. Questions were solicited and answers provided to the satisfaction of the patient/family/POA.
[2024-03-28] MEDS: ceFAZolin SODIUM 2 GM/20 ML SW SYRINGE IV PUSH (08:43)
[2024-03-28] MEDS: LIDO 1%/EPINEPHRINE 1:100,000 10 ML VIAL 5 ML INFILTRATE (09:01)
[2024-03-28] MEDS: BUPivacaine HCL 0.5% 10 ML AMP 5 ML INFILTRATE (09:01)
[2024-03-28 09:07] VITALS: BP 107/67; PULSE 73; RESP 15; O2SAT 93
--- NOTE | 2024-03-28 09:11 | WPDANESPN ---
Anes - Prog Note Post-Op Date/Time: 03/28/24 09:11 Cardiovascular status: normal Respiratory status: normal Airway patency: baseline Mental status: baseline Post-Op hydration status: normal Vital Signs: Last Vital Signs Temp 36.3 C L 03/28/24 07:39 Pulse 82 03/28/24 07:39 Resp 20 03/28/24 07:39 BP 130/88 03/28/24 07:39 Pulse Ox 96 03/28/24 07:39 O2 Del Method Room Air 03/28/24 07:39 Pain Score (VAS): 0 Patient Feedback: Patient satisfied with anesthetic care.
[2024-03-28 09:17] VITALS: BP 120/75; PULSE 76; RESP 15; O2SAT 94
[2024-03-28 09:27] VITALS: BP 140/92; PULSE 73; RESP 15; O2SAT 96
[2024-03-28 09:37] VITALS: BP 139/93; PULSE 66; RESP 14; O2SAT 99
== END 2024-03-28 09:49 ==
PROVIDERS: PCP Family Medicine; Visit Provider Plastic Surgery
PROC: (CPT 25076; principal; 2024-03-28 09:00)
DX: M79.89 Other specified soft tissue disorders (principal)
CPT/HCPCS: 25076

== ENCOUNTER 2024-03-28 07:00 | Outpatient (NON) | payer MEDICARE, SELFPAY ==
--- OUTSIDE RECORDS SUMMARY | 2024-03-29 11:35 | XMS_ITS | Continuity of Care Document ---
Author Organization [facility] Address [address] [place] [address] Phone Care Team Providers Care Hotel Services Supervisor Name Role Phone Administrative, Provider Unavailable Unavail [...] Date Provider Providers Copied on Encounter [email or web address], [address], [id number], [place] tel:[phone] [email or web address] No Information [address] [facility], [facility] [address], [place], [place], [id number], [place]. tel:[phone] [facility], [address] [place] [address], [id number], [place] tel:[phone] [email or web address] No Information [address] [facility], [address], [place], [place], [id number], [place]. tel:[phone] Independent Medical Examination [email or web address], [address], [id number], tel:[phone] [facility] right shoulder (chief complaint) Pain in right shoulder 8 Blank Ramos. [address] [facility], [facility] [address], [place], [place], [id number], [place]. tel:[phone] Independent Medical Examination [facility], [address] [facility] [address], [place], [id number], tel:[phone] [facility] right shoulder (chief complaint) Pain in right shoulder [address] [facility], [place] [address], [place], [place], [id number], [place]. tel:[phone] Family History Family Member Type Diagnosis Age [...]
--- OUTSIDE RECORDS SUMMARY | 2024-03-29 11:35 | XMS_ITS | Encounter Summary ---
Author Organization [facility] Address [address] [place] [address] Care Team Providers Care Radio Control Crane Operator Name Role Phone Kristina Romero MD Primary Care Provider Chloe Lewis PTA Unavailable Unavailable Susan Pro PT Unavailable Unavailable Encounter Details Date Type Department Care Team (Late st Contact Info) Description 10/20/[address] [facility] [address] [facility] [address] [facility] [address] [place] [address] Shandra Smith MD PhD [address] 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
--- OUTSIDE RECORDS SUMMARY | 2024-03-29 11:35 | XMS_ITS | Encounter Summary ---
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 Author CCM Chronic Pain Care Plan Chronic Care Management Improving( 9:30 AM WATCH REPAIR TECHNICIAN) No Pau Guido, RN Note: Problem: [...] on filedocumented in this encounter Care Teams Retail Department Reset Relationship Specialty Start Date End Date Kristina Romero MD PCP - General 10/03/17 Chloe Lewis, RADIO NEWS WRITER Production Potter Physical Therapy 10/20/17 Susan Pro PT Physical Therapist Physical Therapy 11/06/17 documented as of this encounter
--- OUTSIDE RECORDS SUMMARY | 2024-03-29 11:35 | XMS_ITS | Clinical Summary ---
Author Organization [facility] Address [address] [facility], [address] [address] Phone Care Team Providers Care Baby Sitter Name Role Phone Kristina Romero MD Primary [...] 108.9 kg (240 lb) 04/15/2022 9:00 AM PLASTERER HELPER Height 180.3 cm (5' 11 ) 04/15/2022 9:00 AM PLASTERER HELPER Body Mass Index 33.47 04/15/2022 9:00 AM PLASTERER HELPER Plan of Treatment Health Maintenance Due Date [...] ID:[id number] Type:Not on file Address: [address] [address] [place] [address] Care Teams Baby Sitter Relationship Specialty Start Date End Date Kristnia Romero MD PCP - General Family Medicine 12/23/21
--- OUTSIDE RECORDS SUMMARY | 2024-03-29 11:35 | XMS_ITS | Referral Summary ---
Author Organization [facility] [address] Address [address] [place] [address] Care Team Providers Care Feeder Operator Name Role Phone Kristina Romero MD Primary Care Provider Chloe Lewis PTA Unavailable Unavailable Susan Pro PT Unavailable Unavailable Encounters Date Type Department Care Team Description 03/25/2024 7:30 AM LICENSE ISSUER - 03/25/2024 11:59 PM LICENSE ISSUER Hospital Encounter [facility] [address] [place] [id number] Left ankle pain, unspecified chronicity Discharge Disposition: Discharge to home or self care 03/25/2024 7:30 AM LICENSE ISSUER - 03/25/2024 11:59 PM LICENSE ISSUER Hospital Encounter [facility] [address] [place] [id number] Pain in left foot Discharge Disposition: Discharge to home or self care 03/25/2024 7:40 AM LICENSE ISSUER Office Visit [facility] Orthopaedic Surgery [address] [place] [address] 2nd Floor [address] [place] [phone] Sae Su MD Pain in left foot (Primary Dx); Left ankle pain, unspecified chronicity 02/22/2024 7:21 AM LICENSE ISSUER - 02/22/2024 11:59 PM LICENSE ISSUER Hospital Encounter [facility] [address] [place] [id number] Left ankle pain, unspecified chronicity Discharge Disposition: Discharge to home or self care 02/22/2024 7:20 AM LICENSE ISSUER - 02/22/2024 11:59 PM LICENSE ISSUER Hospital Encounter [facility] [address] [place] [id number] Left foot pain Discharge Disposition: Discharge to home or self care 02/22/2024 7:00 AM LICENSE ISSUER Office Visit [facility] Orthopaedic Surgery [address] [place] [address] Floor [address] [place] [phone] Sae Su MD Left foot pain (Primary Dx); Left ankle pain, unspecified chronicity 02/05/2024 2:10 PM LICENSE ISSUER Office Visit [facility] Orthopaedic [address] Floor [address] [place] [phone] Sae Su MD Left ankle pain, unspecified chronicity (Primary Dx) 01/24/2024 10:46 AM LICENSE ISSUER - 01/24/2024 11:59 PM LICENSE ISSUER Hospital Encounter [facility] [address] [place] [id number] Pain in left foot Discharge Disposition: Discharge to home or self care 01/24/2024 10:45 AM LICENSE ISSUER - 01/24/2024 11:59 PM LICENSE ISSUER Hospital Encounter [facility] [address] [place] [id number] Left ankle pain, unspecified chronicity Discharge Disposition: Discharge to home or self care 01/24/2024 10:40 AM LICENSE ISSUER Office Visit [facility] Orthopaedic [address] [place] [phone] Sae Su MD Left ankle pain, unspecified chronicity (Primary Dx); Pain in left foot 01/09/2024 5:26 AM LICENSE ISSUER - 01/10/2024 11:45 AM LICENSE ISSUER Hospital Encounter [address] [phone] Sae Su MD Status post left ankle joint replacement (Primary Dx) Discharge Disposition: Discharge to home or self care 01/09/2024 7:30 AM LICENSE ISSUER - 01/09/2024 12:15 PM LICENSE ISSUER Surgery [facility] [address] [place] [address] Sae Su MD Left revision ankle replacement with gutter debridement and poly exchange, left medial displacement calcaneal osteoetomy 01/09/2024 7:27 AM LICENSE ISSUER Anesthesia Event [facility] [address] [place] [address] Merlin Urena MD Heuvelman, Katherine Marie, NP 01/08/2024 Telephone [facility] Orthopaedic Surgery [id number] [place] [address] 2nd Floor [address] [place] [address] Magy Oconnell CMA from Last [...] (09/17/2020): Added automatically from request for surgery [id number] Assessment & Plan (12/21/2021 9:08 AM LICENSE ISSUER): - Pt completed 1 year of treatment [...] then discuss stopping. - Refill sent to [facility] - Labs today for monitoring - [...] (06/11/2020): Added automatically from request for surgery [id number] Arthritis of left subtalar joint 02/07/2019 Overview (02/07/2019): Added automatically from request for surgery [id number] Encounter for preadmission testing 10/31/2017 Primary osteoarthritis [...] on file Legal Sex Male 3:47 PM LICENSE ISSUER Gender Identity Not on file Sexual Orientation Not on file Last Filed Vital Signs Vital Sign Reading Time Taken Comments Blood Pressure 136/77 01/10/2024 8:20 AM LICENSE ISSUER Pulse 86 01/10/2024 9:20 AM LICENSE ISSUER Temperature 37 C (98.6 F) 01/10/2024 8:20 AM LICENSE ISSUER Respiratory Rate 18 01/10/2024 8:20 AM LICENSE ISSUER Oxygen Saturation 91% 01/10/2024 8:20 AM LICENSE ISSUER Inhaled Oxygen Concentration - - Weight 108.9 kg (240 lb) 01/10/2024 8:20 AM LICENSE ISSUER Height 182.9 cm (6') 01/10/2024 8:20 AM LICENSE ISSUER Body Mass Index 32.55 01/10/2024 8:20 AM LICENSE ISSUER Plan of Treatment Not on file Goals Goal Patient Goal Type Associated Problems Recent Progress Patient-Stated? Author CCM Chronic Pain Care Plan Chronic Care Management Improving( 9:30 AM LICENSE ISSUER) Pau Perez, RN Note: Problem: Chronic Pain Goals: 1. Minimize further functional decline 2. Maximize quality of life 3. Control pain Strategies: - Activity/exercise program recommendation - Conservative stepwise pain medicine strategy with multi-disciplinary approach - Recommend healthy lifestyle strategies and compensatory methods as needed Medical Devices Implanted Type Area Outer Diameter Grinder Device Identifier Shelf Expiration Date Model / Serial / Lot Orthohelix Maxtorque 7mm 47.5mm Cannulated Self Drill Foot Ankle Petite [id number] - [id number] Implanted:Qty: 1 on 01/09/2024 by Sae Su MD at [facility] Screw Left: Ankle Orthohelix MSD-010-70- 475P / / Orthohelix Screw Bone Maxtorque Short Thread L47.5 Mm Od5.5 Mm Foot Ankle Self Drill Cannulated Nonsterile [id number] - [id number] Implanted:Qty: 1 on 01/09/2024 by Sae Su MD at [facility] Screw Left: Ankle Orthohelix MSD-010-55- [id number] / / Depuy Orthopaedics Inc [id number] Smartset High Viscosity Cement 40gm Bone Gentamicin - [id number] Implanted:Qty: 1 on 10/30/2017 by Andre Rivera MD at [facility] Right: Knee [employer] 11/12/2018 [id number] / / [id number] Depuy Orth[employer]ed[employer] Inc [id number] Smartset High Viscosity Cement 40gm Bone Gentamicin - [id number] Implanted:Qty: 1 on 10/30/2017 by Andre Rivera MD at [facility] Right: Knee [employer] 11/12/2018 [id number] / / [id number] Depuy Orth[employer] Inc [id number] Attune Cemented Posterior Stabilize Knee Right 6 Narrow Component - [id number] Implanted:Qty: 1 on 10/30/2017 by Andre Rivera MD at [facility] Right: Knee [employer] 06/13/2027 [id number] / / [id number] Depuy Orth[employer] Inc [id number] Attune S+ Cement Fix Bearing Knee 6 Baseplate Tibial - [id number] Implanted:Qty: 1 on 10/30/2017 by Andre Rivera MD at [facility] Right: Knee [employer] 04/13/2027 [id number] / / [id number] Dep[employer] [id number] Attune 8mm Posterior Stabilize Fix Bearing Knee 6 Insert Tibial - [id number] Implanted:Qty: 1 on 10/30/2017 by Andre Rivera MD at [facility] Right: Knee [employer] 05/13/2022 [id number] / / [id number] Packet[employer] Inc 876p-0400 Mini Ignite Power Mix Injectable Graft 4ml Synthetic Tissue - [id number] - [id number] Implanted:Qty: 1 on 07/09/2019 by Sae Su MD at [facility] Left: Ankle [employer] 06/02/2023 [id number] / [id number] / [employer]in [employer] [id number] Infinity Ankle 4 Long Tray Tibial Adaptis - [id number] Implanted:Qty: 1 on 07/01/2020 by Sae Su MD at [facility] Left: Ankle [employer] [id number] 11/26/2026 [id number] / / [id number] [employer] [id number] Taldome Infinity Adaptis Flatcut Sz3 - [id number] Implanted:Qty: 1 on 07/01/2020 by Sae Su MD at [facility] Left: Ankle [employer] [id number] 05/21/2028 [id number] / / [id number] [employer] [id number] Inbone 9mm Ankle 3+ Implant Fixation Everlast - [id number] Implanted:Qty: 1 on 07/01/2020 by Sae Su MD at [facility] Left: Ankle [employer] [id number] 05/28/2027 [id number] / / [id number] Allosource [id number] 23mm Wedge Frozen Spine Graft Bone Tricortical Ilium - [id number] Implanted:Qty: 1 on 07/01/2020 by Sae Su MD at [facility] Left: Foot Allosource 01/27/2025 [id number] / / [id number] [employer] 1620-509ns Steinmann 5/64in 9in Trocar Point One End Pin Fixation Stainless - [id number] Implanted:Qty: 1 on 07/01/2020 by Sae Su MD at [facility] Left: Foot [employer] [id number] / / Axogen Inc Avance 1-2mm 70mm Allograft Graft Nerve Sterile [id number] - S0 - [id number] Implanted:Qty: 1 on 04/04/2023 by Mani Oseguera MD at [facility] Left: Ankle Axogen Inc 07/13/2025 [id number] / 0 / [id number] [employer] Inbone 11mm Ankle 3+ Implant Fixation Everlast [id number] - [id number] Implanted:Qty: 1 on 01/09/2024 by Sae Su MD at [facility] Left: Ankle Focal [employer] Inc 11/09/2029 [id number] / / [id number] Explanted Type Area Outer Diameter Grinder Device Identifier Shelf Expiration Date Model / Serial / Lot [employer] 1624-509ns Steinmann 3/32mm 9in Trocar Point Pin Fixation Stainless Steel - [id number] Explanted:Qty: 1 on 07/09/2019 at [facility] Left: Ankle [employer] [id number] / / Focal [employer] Inc [id number] K-Wire 1.4mm 228mm Wire Fixation - [id number] Explanted:Qty: 4 on 07/01/2020 at [facility] Left: Ankle Focal [employer] Inc [id number] / / [employer] [id number] Jesus .45in 9in 1 Trocar Point Orthopedic Wire Fixation - [id number] Explanted:Qty: 1 on 07/01/2020 at [facility] Left: Foot [employer] [id number] S / / Orthohelix [id number] Maxtorque 7mm 75mm Cannulated Self Drill Foot Ankle Petite Thread - [id number] Implanted:Qty: 1 on 07/09/2019 by Sae Su MD at [facility] Explanted:Qty: 1 on 07/01/2020 at [facility] Left: Ankle Orthohelix MSD-010-70 -075P / / Orthohelix [id number] Maxtorque 7mm 80mm Cannulated Self Drill Short Thread Screw Bone - [id number] Implanted:Qty: 1 on 07/09/2019 by Sae Su MD at [facility] Explanted:Qty: 1 on 07/01/2020 at [facility] Left: Ankle Orthohelix MSD-010-70 -[id number] / / Procedures Procedure Name Priority Date/Time Associated Diagnosis Comments XR ANKLE LEFT 3 OR MORE VIEWS Schedule Routine, Read Routine (OP Routine) 03/25/2024 7:39 AM LICENSE ISSUER Left ankle pain, unspecified chronicity XR FOOT LEFT 3 OR MORE VIEWS Schedule Routine, Read Routine (OP Routine) 03/25/2024 7:39 AM LICENSE ISSUER Pain in left foot ORTHO CASTING/SPLINTING Routine 02/21/19 8:31 AM LICENSE ISSUER Left foot pain XR ANKLE LEFT 3 OR MORE VIEWS Schedule Routine, Read Routine (OP Routine) 02/22/2024 7:30 AM LICENSE ISSUER Left ankle pain, unspecified chronicity XR FOOT LEFT 3 OR MORE VIEWS Schedule Routine, Read Routine (OP Routine) 02/22/2024 7:29 AM LICENSE ISSUER Left foot pain PA CAST SUP SHRT LEG FIBERGLASS Routine 02/05/2024 8:24 AM LICENSE ISSUER Left ankle pain, unspecified chronicity PA APPLICATION SHORT LEG CAST BELOW KNEE-TOE Routine 02/05/2024 8:24 AM LICENSE ISSUER Left ankle pain, unspecified chronicity PA CAST SUP SHRT LEG FIBERGLASS Routine 01/24/2024 12:25 PM LICENSE ISSUER Left ankle pain, unspecified chronicity PA APPLICATION SHORT LEG CAST BELOW KNEE-TOE Routine 01/24/2024 12:25 PM LICENSE ISSUER Left ankle pain, unspecified chronicity XR FOOT LEFT 3 OR MORE VIEWS Schedule Routine, Read Routine (OP Routine) 01/24/2024 10:57 AM LICENSE ISSUER Pain in left foot XR ANKLE LEFT 3 OR MORE VIEWS Schedule Routine, Read Routine (OP Routine) 01/24/2024 10:57 AM LICENSE ISSUER Left ankle pain, unspecified chronicity EGFR Routine 01/09/2024 9:45 PM LICENSE ISSUER DIFFERENTIAL AUTO Routine 01/09/2024 9:4 5 PM LICENSE ISSUER CBC WITH AUTO DIFFERENTIAL Routine 01/09/2024 9:45 PM LICENSE ISSUER BASIC METABOLIC PANEL Routine 01/09/2024 9:45 PM LICENSE ISSUER FL FLUOROSCOPY < 1 HOUR IP Routine 01/09/20 12:10 PM LICENSE ISSUER MYCOBACTERIOLOGY AFB CULTURE AND ACID-FAST STAIN Routine 01/09/2024 9:06 AM LICENSE ISSUER MYCOLOGY (FUNGAL) CULTURE AND STAIN Routine 01/09/2024 9:06 AM LICENSE ISSUER TISSUE AEROBIC AND ANAEROBIC CULTURE AND GRAM STAIN Routine 01/09/2024 9:06 AM LICENSE ISSUER MYCOBACTERIOLOGY AFB CULTURE AND ACID-FAST STAIN Routine 01/09/2024 8:56 AM LICENSE ISSUER MYCOLOGY (FUNGAL) CULTURE AND STAIN Routine 01/09/2024 8:56 AM LICENSE ISSUER TISSUE AEROBIC AND ANAEROBIC CULTURE AND GRAM STAIN Routine 01/09/2024 8:56 AM LICENSE ISSUER MYCOBACTERIOLOGY AFB CULTURE AND ACID-FAST STAIN Routine 01/09/2024 8:47 AM LICENSE ISSUER MYCOLOGY (FUNGAL) CULTURE AND STAIN Routine 01/09/2024 8:47 AM LICENSE ISSUER TISSUE AEROBIC AND ANAEROBIC CULTURE AND GRAM STAIN Routine 01/09/2024 8:47 AM LICENSE ISSUER PA AN PROCEDURE PLACEHOLDER Routine 01/09/2024 8:06 AM LICENSE ISSUER PA AN ELECTIVE ENDOTRACHEAL AIRWAY Routine 01/09/2024 8:06 AM LICENSE ISSUER OSTEOTOMY CALCANEUS 01/09/2024 7 :32 AM LICENSE ISSUER Deformity of ankle joint, right Case Notes 06/15: Message sent blank dpc -bt ARTHROPLASTY TOTAL ANKLE 01/09/2024 7:32 AM LICENSE ISSUER Deformity of ankle joint, right Case Notes 06/15: Message sent blank dpc -bt from Last 3 Months Results * XR Ankle Left 3+ View (03/25/2024 7:39 AM LICENSE ISSUER) Anatomical Region Laterality Modality Lower Extremities, Ankle Left Compute d Radiography 03/25/2024 8:54 AM LICENSE ISSUER Impressions 03/25/2024 8:54 AM LICENSE ISSUER 1. Unchanged revised left total ankle arthroplasty in near anatomic position with healing, instrumented medial displacement calcaneal calcaneal osteotomy. 2. Unchanged healed, solidly fused subtalar arthrodesis 3. Pes planovalgus The radiology attending physician has personally reviewed this study, and had reviewed and/or edited this written report and agrees with it. Electronically signed by: Figueroa Porras MD, PHD Narrative 03/25/2024 8:54 AM LICENSE ISSUER EXAMINATION: XR FOOT LEFT 3 OR MORE [...] us Sae Su MD IMG XR PROCEDURES Cahta l Result * XR Foot Left 3+ View (03/25/2024 7:39 AM LICENSE ISSUER) Anatomical Region Laterality Modality Lower Extremities, Foot Left Computed Radiography 03/25/2024 8:54 AM LICENSE ISSUER Impressions 03/25/2024 8:54 AM LICENSE ISSUER 1. Unchanged revised left total ankle arthroplasty in near anatomic position with healing, instrumented medial displacement calcaneal calcaneal osteotomy. 2. Unchanged healed, solidly fused subtalar arthrodesis 3. Pes planovalgus The radiology attending physician has personally reviewed this study, and had reviewed and/or edited this written report and agrees with it. Electronically signed by: Figueroa Porras MD, PHD Narrative 03/25/2024 8:54 AM LICENSE ISSUER EXAMINATION: XR FOOT LEFT 3 OR MORE [...] * Ortho Casting/Splinting Documentation (02/22/2024 8:31 AM LICENSE ISSUER) Narrative Sae Su MD - 02/22/2024 8:31 AM LICENSE ISSUER Teresita Simon MS 02/22/2024 8:31 AM Ortho Casting/Splinting Documentation Date/Time: 02/22/2024 8:31 AM Performed by: Teresita Simon MS Authorized by: Sae Su MD Sensation: Normal Skin Condition: Clean, dry, and intact Caruthers/Sutures Removed: No Pin Pulled: No Cast Removed: [...] 3 or More Views (02/22/2024 7:30 AM LICENSE ISSUER) Anatomical Region Laterality Modality Lower Extremities, Ankle Left Compute d Radiography 02/22/2024 7:41 AM LICENSE ISSUER Impressions 02/22/2024 7:41 AM LICENSE ISSUER Revision left total ankle arthroplasty in near-anatomic position. Healing instrumented calcaneal osteotomy. Electronically signed by: Aryan Spangler M.D. Narrative 02/22/2024 7:41 AM LICENSE ISSUER EXAMINATION: XR FOOT LEFT 3 OR MORE [...] by: Aryan Spangler M.D. Sae Su [place] [facility] [place]ED[place] Result * XR Foot Left 3 or More Views (02/22/2024 7:29 AM LICENSE ISSUER) Anatomical Region Laterality Modality Lower Extremities, Foot Left Computed Radiography 02/22/2024 7:41 AM LICENSE ISSUER Impressions 02/22/2024 7:41 AM LICENSE ISSUER Revision left total ankle arthroplasty in near-anatomic position. Healing instrumented calcaneal osteotomy. Electronically signed by: Aryan Spangler M.D. Narrative 02/22/2024 7:41 AM LICENSE ISSUER EXAMINATION: XR FOOT LEFT 3 OR MORE [...] by: Aryan Spangler M.D. Sae Su MD [facility] [place]ED[place] Result * PA APPLICATION SHORT LEG CAST BELOW KNEE-TOE, PA CAST SUP SHRT LEG FIBERGLASS (02/05/2024 8:24 AM LICENSE ISSUER) Narrative Teresita Simon, - 02/05/2024 8:24 AM LICENSE ISSUER Teresita Simon, MS 02/21/2024 8:24 AM Ortho Casting/Splinting Documentation Date/Time: 02/05/2024 8:24 AM Performed by: Oliverio Lou Authorized by: Sae Su MD Sensation: Normal Skin Condition: Clean, dry, and intact Caruthers/Sutures Removed: No Pin Pulled: No Cast Removed: [...] IN CLINIC/BEDSIDE DINA CLINE Final Result * PA APPLICATION SHORT LEG CAST BELOW KNEE-TOE, PA CAST SUP SHRT LEG FIBERGLASS (01/24/2024 12:25 PM LICENSE ISSUER) Narrative Sae Su MD - 01/24/2024 12:25 PM LICENSE ISSUER Sae Su MD 01/28/2024 12:59 AM Ortho [...] Foot Left 3+ View (01/24/2024 10:57 AM LICENSE ISSUER) Anatomical Region Laterality Modality Lower Extremities, Foot Left Computed Radiography 01/24/2024 4:10 PM LICENSE ISSUER Impressions 01/24/2024 9:23 PM LICENSE ISSUER Revision left total ankle arthroplasty in expected position with healing interval instrumented calcaneal osteotomy and surrounding soft tissue swelling. Dictated by: Avis Vega MD, MPH The radiology attending physician has personally reviewed this study, and had reviewed and/or edited this written report and agrees with it. Electronically signed by: Saji Hdz MD Narrative 01/24/2024 9:23 PM LICENSE ISSUER EXAMINATION: XR ANKLE LEFT 3 OR MORE [...] Ankle Left 3+ View (01/24/2024 10:57 AM LICENSE ISSUER) Anatomical Region Laterality Modality Lower Extremities, Ankle Left Compute d Radiography 01/24/2024 4:10 PM LICENSE ISSUER Impressions 01/24/2024 9:23 PM LICENSE ISSUER Revision left total ankle arthroplasty in expected position with healing interval instrumented calcaneal osteotomy and surrounding soft tissue swelling. Dictated by: Avis Vega MD, MPH The radiology attending physician has personally reviewed this study, and had reviewed and/or edited this written report and agrees with it. Electronically signed by: Saji Hdz MD Narrative 01/24/2024 9:23 PM LICENSE ISSUER EXAMINATION: XR ANKLE LEFT 3 OR MORE [...] l Result * eGFR (01/09/2024 9:45 PM LICENSE ISSUER) eGFR 83 >=60 mL/min/1. 73 m2 Comment: [...] last reviewed 2020. Blood 01/09/2024 9:45 PM LICENSE ISSUER 01/09/2024 10:26 PM LICENSE ISSUER Halley Shields NP LAB BLOOD ORDERABLES Final Result [facility] Department [place] [address] * (ABNORMAL) Differential, auto (01/09/2024 9:45 PM LICENSE ISSUER) Neutrophil abs 12.8(H) 1.5 - 6.5 K/cumm Imm gran abs 0.1 0.0 - 0.1 K/cumm [facility] Lymphocyte abs 1.4 0.8 - 3.3 K/cumm [facility] Monocyte abs 1.1(H) 0.2 - 0.8 K/cumm [facility] Eosinophil abs 0.0 0.0 - 0.5 K/cumm [facility] Basophil abs 0.0 0.0 - 0.1 K/cumm [facility] Neutrophil pct 82.8 % [facility] Comment: Interpretive Data Percent cell count reference ranges are not reported, since discordance with absolute values may lead to misinterpretation of CBC data. Current Interpretive Data was last revised on 2017. Imm gran pct 0.7 % [facility] Comment: Interpretive Data Percent cell count reference ranges are not reported, since discordance with absolute values may lead to misinterpretation of CBC data. Current Interpretive Data was last revised on 2017. Lymphocyte pct 9.2 % [facility] Comment: Interpretive Data Percent cell count reference ranges are not reported, since discordance with absolute values may lead to misinterpretation of CBC data. Current Interpretive Data was last revised on 2017. Monocyte pct 7.1 % [facility] Comment: Interpretive Data Percent cell count reference ranges are not reported, since discordance with absolute values may lead to misinterpretation of CBC data. Current Interpretive Data was last revised on 2017. Eosinophil pct 0.0 % [facility] Comment: Interpretive Data Percent cell count reference ranges are not reported, since discordance with absolute values may lead to misinterpretation of CBC data. Current Interpretive Data was last revised on 2017. Basophil pct 0.2 % [facility] Comment: Interpretive Data Percent cell count reference ranges are not reported, since discordance with absolute values may lead to misinterpretation of CBC data. Current Interpretive Data was last revised on 2017. Blood 01/09/2024 9:45 PM LICENSE ISSUER 01/09/2024 10:25 PM LICENSE ISSUER us Halley Shields NP LAB BLOOD ORDERABLES Final Result [facility] [place] [address] * (ABNORMAL) CBC with auto differential (01/09/2024 9:45 PM LICENSE ISSUER) WBC 15.4(H) 3.8 - 9.9 K/cumm Hgb 14.5 13.0 - 17.5 g/dL [facility] Hct 43.9 38.9 - 50.3 % [facility] Plt 208 150 - 400 K/cumm [facility] MPV 9.4 9.1 - 12.3 fL [facility] RBC 4.87 4.30 - 5.80 M/cumm [facility] MCV 90.1 81.3 - 96.4 fL [facility] MCH 29.8 27.1 - 33.3 pg [facility] MCHC 33.0 32.3 - 35.7 g/dL [facility] RDW CV 13.8 11.1 - 14.9 % [facility] RDW SD 46.2 35.7 - 48.1 fL [facility] NRBC abs 0.00 0.00 - 0.01 K/cumm [facility] Blood 01/09/2024 9:45 PM LICENSE ISSUER 01/09/2024 10:25 PM LICENSE ISSUER us Halley Shields NP LAB BLOOD ORDERABLES Final Result [facility] Department [place] [address] * Basic metabolic panel (01/09/2024 9:45 PM LICENSE ISSUER) Sodium 140 135 - 145 mmol/L Potassium, pl 4.5 3.3 - 4.9 mmol/L [facility] Chloride 102 97 - 110 mmol/L [facility] CO2 30 22 - 32 mmol/L [facility] Anion gap 8 2 - 15 mmol/L [facility] BUN 15 6 - 25 mg/dL [facility] Creatinine 1.03 0.80 - 1.30 mg/dL [facility] Glucose 104 70 - 199 mg/dL [facility] Comment: Interpretive Data Fasting glucose >/= [...] 2022. Calcium 8.7 8.5 - 10.3 mg/dL [facility] Blood 01/09/2024 9:45 PM LICENSE ISSUER 01/09/2024 10:26 PM LICENSE ISSUER Halley Shields NP LAB BLOOD ORDERABLES Final Result [facility] Department [place] [address] * [place] Fluoroscopy < 1 Hour (01/09/2024 12:10 PM LICENSE ISSUER) Narrative RAD_PACS_[facility] - 01/09/2024 12:10 PM LICENSE ISSUER The images from this study are not interpreted by Radiology. Please refer to the physician's procedure / OR operative note. us Sae Su MD IMG FLUOROSCOPY PROCED URES Final Result Performing Organization Address [facility]/ZIP Co de Phone Number [email or web address] * Tissue aerobic and anaerobic culture and gram stain Tissue Ankle, left (01/09/2024 9:06 AM LICENSE ISSUER) Direct Specimen Exam Stain: Rare polymorphonuclear leukocytes seen. No organisms seen. Report Final Report: No growth [facility] Tissue (Ankle, left) 01/09/2024 9:06 AM LICENSE ISSUER 01/09/2024 2:04 PM LICENSE ISSUER Narrative [facility] - 01/14/2024 9:47 AM LICENSE ISSUER Left Ankle Anterior Joint Specimen received in anaerobic transport media. Testing performed by [facility] ([phone]) Specimens submitted from normally sterile body sites [...] ERAL ORDERABLES Final Result Performing Organization Address [facility] Co de Phone Number [facility] [place] [address] * Mycology (fungal) culture and stain Tissue Ankle, left (01/09/2024 9:06 AM LICENSE ISSUER) Direct Specimen Exam Stain: No Fungal elements seen. Report Final Report: No growth of fungus [facility] Tissue (Ankle, left) 01/09/2024 9:06 AM LICENSE ISSUER 01/09/2024 2:04 PM LICENSE ISSUER Narrative [facility] - 02/06/2024 10:50 AM LICENSE ISSUER Left Ankle Anterior Joint Specimen received in anaerobic transport media. Testing performed by [facility] ([phone]). Sae Su MD LAB MICROBIOLOGY - GEN ERAL ORDERABLES Final Result Performing Organization Address [facility] de Phone Number [facility] [place] [address] * Mycobacteriology (AFB) culture and acid-fast stain Tissue Ankle, left (01/09/2024 9:06 AM LICENSE ISSUER) Direct Specimen Exam Stain: No Acid-fast bacilli seen Direct Specimen Exam Auramine-Rho damine Stain: Previously reported results on this patient were deleted. [facility] Report Final Report: No growth of acid-fast bacilli [facility] Tissue (Ankle, left) 01/09/2024 9:06 AM LICENSE ISSUER 01/09/2024 2:04 PM LICENSE ISSUER Narrative [facility] - 03/12/2024 12:56 PM LICENSE ISSUER Left Ankle Anterior Joint Specimen received in anaerobic transport media. Testing performed by [facility] ([phone]). Sae Su MD LAB MICROBIOLOGY - GEN ERAL ORDERABLES Final Result Performing Organization Address [facility] de Phone Number [facility] [place] [address] * Tissue aerobic and anaerobic culture and gram stain Tissue Ankle, left (01/09/2024 8:56 AM LICENSE ISSUER) Direct Specimen Exam Stain: No polymorphonuclear leukocytes seen. No organisms seen. Report Final Report: No growth [facility] Tissue (Ankle, left) 01/09/2024 8:56 AM LICENSE ISSUER 01/09/2024 1:43 PM LICENSE ISSUER Narrative [facility] - 01/14/2024 9:48 AM LICENSE ISSUER Left Ankle Medial Gutter Specimen received in anaerobic transport media. Testing performed by [facility] ([phone]) Specimens submitted from normally sterile body sites [...] ERAL ORDERABLES Final Result Performing Organization Address [facility] de Phone Number [facility] [place] [address] * Mycology (fungal) culture and stain Tissue Ankle, left (01/09/2024 8:56 AM LICENSE ISSUER) Direct Specimen Exam Stain: No Fungal elements seen. Report Final Report: No growth of fungus [facility] Tissue (Ankle, left) 01/09/2024 8:56 AM LICENSE ISSUER 01/09/2024 1:43 PM LICENSE ISSUER Narrative [facility] - 02/06/2024 10:51 AM LICENSE ISSUER Left Ankle Medial Gutter Specimen received in anaerobic transport media. Testing performed by [facility] ([phone]). Sae Su MD LAB MICROBIOLOGY - GEN ERAL ORDERABLES Final Result Performing Organization Address [facility] de Phone Number [facility] Department [place] [address] * Mycobacteriology (AFB) culture and acid-fast stain Tissue Ankle, left (01/09/2024 8:56 AM LICENSE ISSUER) Direct Specimen Exam Stain: No Acid-fast bacilli seen Direct Specimen Exam Auramine-Rho damine Stain: Previously reported results on this patient were deleted. [facility] Report Final Report: No growth of acid-fast bacilli [facility] Tissue (Ankle, left) 01/09/2024 8:56 AM LICENSE ISSUER 01/09/2024 1:43 PM LICENSE ISSUER Narrative [facility] - 03/12/2024 12:56 PM LICENSE ISSUER Left Ankle Medial Gutter Specimen received in anaerobic transport media. Testing performed by [facility] ([phone]). Sae Su MD LAB MICROBIOLOGY - GEN ERAL ORDERABLES Final Result Performing Organization Address [facility] Co de Phone Number [facility] [place] [address] * Tissue aerobic and anaerobic culture and gram stain Tissue Ankle, left (01/09/2024 8:47 AM LICENSE ISSUER) Direct Specimen Exam Stain: No polymorphonuclear leukocytes seen. No organisms seen. Report Final Report: No growth [facility] Tissue (Ankle, left) 01/09/2024 8:47 AM LICENSE ISSUER 01/09/2024 2:07 PM LICENSE ISSUER Narrative [facility] - 01/14/2024 9:46 AM LICENSE ISSUER Left Ankle Joint Capsule Specimen received in anaerobic transport media. Testing performed by [facility] ([phone]) Specimens submitted from normally sterile body sites [...] ERAL ORDERABLES Final Result Performing Organization Address [facility] Co de Phone Number [facility] Department [place] [address] * Mycology (fungal) culture and stain Tissue Ankle, left (01/09/2024 8:47 AM LICENSE ISSUER) Direct Specimen Exam Stain: No Fungal elements seen. Report Final Report: No growth of fungus [facility] Tissue (Ankle, left) 01/09/2024 8:47 AM LICENSE ISSUER 01/09/2024 2:07 PM LICENSE ISSUER [facility]arrative [facility] - 02/06/2024 10:50 AM LICENSE ISSUER Left Ankle Joint Capsule Specimen received in anaerobic transport media. Testing performed by [facility] ([phone]). Sae Su MD LAB MICROBIOLOGY - GEN ERAL ORDERABLES Final Result Performing Organization Address [facility] Co de Phone Number [facility] [place] [address] * Mycobacteriology (AFB) culture and acid-fast stain Tissue Ankle, left (01/09/2024 8:47 AM LICENSE ISSUER) Direct Specimen Exam Stain: No Acid-fast bacilli seen Direct Specimen Exam Auramine-Rho damine Stain: Previously reported results on this patient were deleted. [facility] Report Final Report: No growth of acid-fast bacilli [facility] Tissue (Ankle, left) 01/09/2024 8:47 AM LICENSE ISSUER 01/09/2024 2:07 PM LICENSE ISSUER Narrative [facility] - 03/12/2024 12:56 PM LICENSE ISSUER Left Ankle Joint Capsule Specimen received in anaerobic transport media. Testing performed by [facility] ([phone]). us Sae Su MD LAB MICROBIOLOGY - GEN ERAL ORDERABLES Final Result Performing Organization Address [facility] Co de Phone Number 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 (01/09/2024 8:06 AM LICENSE ISSUER) Stew King CRNA - 01/09/2024 8:06 AM LICENSE ISSUER Stew Doyle CRNA 01/09/2024 8:07 AM Airway Patient location: OR Urgency: elective Indications for airway management: anesthesia Difficult airway: no Staff: Placed by: RECORDIST: Stew Doyle CRNA Emergent airway documentation: Risks [...] Res ult from Last 3 Months Insurance [facility] [employer] [place] [employer] PPO [employer] OPEN ACCESS [employer] Member Subscriber Plan / Payer (Ef fective 2020-Present) Name:Carly Lawson Annie Member ID:[id number] Relation to Subscriber:Self Name:Carly Lawson Subscriber ID:[id number] Payer ID:[id number] (NAIC) Group ID:[id number] Type:COMMERCIAL [employer] IBEW Member Subscriber Plan / Payer (Ef fective 2002-Present) Name:Carly Lawson Annie Relation to Subscriber:Self Name:Carly Lawson Annie Payer ID:[id number] (NAIC) Group ID:[id number] Type:CIGNA HMO/PPO Address: [address] [place] [address] [employer] PPO MEDICARE [employer] [place] Member Subscriber Plan / Payer (Ef fective 2021-Present) Name:Neel Carly Annie Relation to Subscriber:Self Name:Carly Lawson Annie Payer ID:[id number] Group ID:[id number] Type:COMMERCIAL Address: [address] [address] [place] [address] MEDICARE [employer]MIN[employer] [place] Member Subscriber Plan / Payer (Ef fective 2018-Present) Name:Carly Lawson Relation to Subscriber:Self Name:Carly Lawson Payer ID:[id number] Group ID:[id number] Type:COMMERCIAL Address: [address] [address] [place] [address] Advance Directives For more information, please contact: [phone] * Full Code (Latest Code Status on [...] 5:22 PM 07/09/2019 5:25 AM Care Teams Feeder Operator Relationship Specialty Start Date End Date Kristina Romero MD PCP - General 10/03/17 Chloe Lewis, BIT WELDER Hard Candy Batch Mixer Physical Therapy 10/20/17 Susan Pro PT Physical Therapist Physical Therapy 11/06/17
--- OUTSIDE RECORDS SUMMARY | 2024-03-29 11:35 | XMS_ITS | Clinical Summary ---
Author Organization [facility] Building B Address [address] [place] [address] Care Team Providers Care Associate Broker Name Role Phone Kristina Romero MD Primary Care Provider Chloe Lewis MILL ROLL OPERATOR Unavailable Unavailable Susan Pro PT Unavailable Unavailable [...] (09/17/2020): Added automatically from request for surgery [id number] Assessment & Plan (12/21/2021 9:08 AM ELEVATOR CONSTRUCTOR HYDRAULIC): - Pt completed 1 year of treatment [...] then discuss stopping. 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 Overview (02/07/2019): Added automatically from request for surgery [id number] Encounter for preadmission testing 10/31/2017 Primary osteoarthritis of right knee 07/25/2016 Encounters Date Type Department Care Team Description 03/25/2024 7:40 AM ELEVATOR CONSTRUCTOR HYDRAULIC Office Visit [facility] Orthopaedic Surgery [address] [place] [address] 2nd Floor [address] [place] [address] Sae Su MD Pain in left foot (Primary Dx); Left ankle pain, unspecified chronicity 03/25/2024 7:30 AM ELEVATOR CONSTRUCTOR HYDRAULIC - 03/25/2024 11:59 PM ELEVATOR CONSTRUCTOR HYDRAULIC Hospital Encounter [facility] Radiology at the [address] [address] Pain in left foot Discharge Disposition: Discharge to home or self care 03/25/2024 7:30 AM ELEVATOR CONSTRUCTOR HYDRAULIC - 03/25/2024 11:59 PM ELEVATOR CONSTRUCTOR HYDRAULIC Hospital Encounter [facility] [address] [place] [phone] Left ankle pain, unspecified chronicity Discharge Disposition: Discharge to home or self care 02/22/2024 7:21 AM ELEVATOR CONSTRUCTOR HYDRAULIC - 02/22/2024 11:59 PM ELEVATOR CONSTRUCTOR HYDRAULIC Hospital Encounter [facility] [address] [place] [phone] Left ankle pain, unspecified chronicity Discharge Disposition: Discharge to home or self care 02/22/2024 7:20 AM ELEVATOR CONSTRUCTOR HYDRAULIC - 02/22/2024 11:59 PM ELEVATOR CONSTRUCTOR HYDRAULIC Hospital Encounter [facility] [address] [place] [phone] Left foot pain Discharge Disposition: Discharge to home or self care 02/22/2024 7:00 AM ELEVATOR CONSTRUCTOR HYDRAULIC Office Visit [facility] Orthopaedic Surgery [address] [place] [address] [address] [place] [phone] Sae Su MD Left foot pain (Primary Dx); Left ankle pain, unspecified chronicity 02/05/2024 2:10 PM ELEVATOR CONSTRUCTOR HYDRAULIC Office Visit [facility] Orthopaedic Surgery [address] [place] [address] 2[address] [place] [phone] Sae Su MD Left ankle pain, unspecified chronicity (Primary Dx) 01/24/2024 10:46 AM ELEVATOR CONSTRUCTOR HYDRAULIC - 01/24/2024 11:59 PM ELEVATOR CONSTRUCTOR HYDRAULIC Hospital Encounter [facility] [address] [place] [phone] Pain in left foot Discharge Disposition: Discharge to home or self care 01/24/2024 10:45 AM ELEVATOR CONSTRUCTOR HYDRAULIC - 01/24/2024 11:59 PM ELEVATOR CONSTRUCTOR HYDRAULIC Hospital Encounter [facility] [address] [place] [phone] Left ankle pain, unspecified chronicity Discharge Disposition: Discharge to home or self care 01/24/2024 10:40 AM ELEVATOR CONSTRUCTOR HYDRAULIC Office Visit [facility] Orthopaedic Surgery [address] [place] [address] 2[address] [place] [phone] Sae Su MD Left ankle pain, unspecified chronicity (Primary Dx); Pain in left foot 01/09/2024 7:30 AM ELEVATOR CONSTRUCTOR HYDRAULIC - 01/09/2024 12:15 PM ELEVATOR CONSTRUCTOR HYDRAULIC Surgery [facility] [address] [place] [address] Sae Su MD Left revision ankle replacement with gutter debridement and poly exchange, left medial displacement calcaneal osteoetomy 01/09/2024 7:27 AM ELEVATOR CONSTRUCTOR HYDRAULIC Anesthesia Event [facility] [address] [place] [id number] Merlin Urena MD Heuvelman, Katherine Marie, NP 01/09/2024 5:26 AM ELEVATOR CONSTRUCTOR HYDRAULIC - 01/10/2024 11:45 AM ELEVATOR CONSTRUCTOR HYDRAULIC Hospital Encounter [address] [phone] Sae Su MD Status post left ankle joint replacement (Primary Dx) Discharge Disposition: Discharge to home or self care 01/08/2024 Telephone [facility] Orthopaedic Surgery [id number] [place] [address] 2[address] [place] [address] Magy Oconnell CMA from Last [...] on file Legal Sex Male 3:47 PM ELEVATOR CONSTRUCTOR HYDRAULIC Gender Identity Not on file Sexual Orientation Not on file Obstetrics History Last Filed Vital Signs Vital Sign Reading Time Taken Comments Blood Pressure 136/77 01/10/2024 8:20 AM ELEVATOR CONSTRUCTOR HYDRAULIC Pulse 86 01/10/2024 9:20 AM ELEVATOR CONSTRUCTOR HYDRAULIC Temperature 37 C (98.6 F) 01/10/2024 8:20 AM ELEVATOR CONSTRUCTOR HYDRAULIC Respiratory Rate 18 01/10/2024 8:20 AM ELEVATOR CONSTRUCTOR HYDRAULIC Oxygen Saturation 91% 01/10/2024 8:20 AM ELEVATOR CONSTRUCTOR HYDRAULIC Inhaled Oxygen Concentration - - Weight 108.9 kg (240 lb) 01/10/2024 8:20 AM ELEVATOR CONSTRUCTOR HYDRAULIC Height 182.9 cm (6') 01/10/2024 8:20 AM ELEVATOR CONSTRUCTOR HYDRAULIC Body Mass Index 32.55 01/10/2024 8:20 AM ELEVATOR CONSTRUCTOR HYDRAULIC Plan of Treatment Health Maintenance Due Date [...] Plan Chronic Care Management Improving( 9:30 AM ELEVATOR CONSTRUCTOR HYDRAULIC) Pau Perez, RN Note: Problem: Chronic Pain Goals: 1. Minimize further functional decline 2. Maximize quality of life 3. Control pain Strategies: - Activity/exercise program recommendation - Conservative stepwise pain medicine strategy with multi-disciplinary approach - Recommend healthy lifestyle strategies and compensatory methods as needed Medical Devices Implanted Type Area Forest Fire Management Officer Device Identifier Shelf Expiration Date Model / Serial / Lot Orthohelix Maxtorque 7mm 47.5mm Cannulated Self Drill Foot Ankle Petite Olr-[id number] - [id number] Implanted:Qty: 1 on 01/09/2024 by Sae Su MD at [facility] Left: Ankle Orthohelix MSD-010-70- 475P / / Orthohelix Screw Bone Maxtorque Short Thread L47.5 Mm Od5.5 Mm Foot Ankle Self Drill Cannulated Nonsterile Eal-[id number] - [id number] Implanted:Qty: 1 on 01/09/2024 by Sae uS MD at [facility] Left: Ankle Orthohelix MSD-010-55- [id number] / / Depuy Orthopaed[employer] Inc [id number] Smartset High Viscosity Cement 40gm Bone Gentamicin - [id number] Implanted:Qty: 1 on 10/30/2017 by Andre Rivera MD at [facility] Right: Knee [employer] 11/12/2018 [id number] / / [id number] Depuy [employer] [id number] Smartset High Viscosity Cement 40gm Bone Gentamicin - [id number] Implanted:Qty: 1 on 10/30/2017 by Andre Rivera MD at [facility] Right: Knee [employer] 11/12/2018 [id number] / / [id number] Dep[employer] [id number] Attune Cemented Posterior Stabilize Knee Right 6 Narrow Component - [id number] Implanted:Qty: 1 on 10/30/2017 by Andre Rivera MD at [facility] Right: Knee [employer] 06/13/2027 [id number] / / [id number] Dep[employer] [id number] Attune S+ Cement Fix Bearing Knee 6 Baseplate Tibial - [id number] Implanted:Qty: 1 on 10/30/2017 by Andre Rivera MD at [facility] Right: Knee [employer] 04/13/2027 [id number] / / [id number] Dep[employer] [id number] Attune 8mm Posterior Stabilize Fix Bearing Knee 6 Insert Tibial - [id number] Implanted:Qty: 1 on 10/30/2017 by Andre Rivera MD at [facility] Right: Knee [employer] 05/13/2022 [id number] / / [id number] [employer] Inc [id number] Mini Ignite Power Mix Injectable Graft 4ml Synthetic Tissue - [id number] - [id number] Implanted:Qty: 1 on 07/09/2019 by Sae Su MD at [facility] Left: Ankle [employer] 06/02/2023 [id number] / [id number] / [employer] [id number] Infinity Ankle 4 Long Tray Tibial Adaptis - [id number] Implanted:Qty: 1 on 07/01/2020 by Sae Su MD at [facility] Left: Ankle [employer] [id number] 11/26/2026 [id number] / / [id number] [employer] [id number] Taldome Infinity Adaptis Flatcut Sz3 - [id number] Implanted:Qty: 1 on 07/01/2020 by Sae Su MD at [facility] Left: Ankle [employer] [id number] 05/21/2028 [id number] / / [id number] [employer] [id number] Inbone 9mm Ankle 3+ Implant Fixation Everlast - [id number] Implanted:Qty: 1 on 07/01/2020 by Sae Su MD at [facility] Left: Ankle [employer] [id number] 05/28/2027 [id number] / / [id number] Allosource [id number] 23mm Wedge Frozen Spine Graft Bone Tricortical Ilium - [id number] Implanted:Qty: 1 on 07/01/2020 by Sae Su MD at [facility] Left: Foot [employer]osource 01/27/2025 [id number] / / [id number] [employer] 1620-509ns Steinmann 5/64in 9in Trocar Point One End Pin Fixation Stainless - [id number] Implanted:Qty: 1 on 07/01/2020 by Sae Su MD at [facility] Left: Foot [employer] [id number] / / Axogen Inc Avance 1-2mm 70mm Allograft Graft Nerve Sterile [id number] - S0 - [id number] Implanted:Qty: 1 on 04/04/2023 by Mani Oseguera MD at [facility] Left: Ankle [employer] Inc 07/13/2025 [id number] / 0 / [id number] Tradeshift [employer] Inbone 11mm Ankle 3+ Implant Fixation Everlast [id number] - [id number] Implanted:Qty: 1 on 01/09/2024 by Sae Su MD at [facility] Left: Ankle [employer] 11/09/2029 [id number] / / [id number] Explanted Type Area Forest Fire Management Officer Device Identifier Shelf Expiration Date Model / Serial / Lot [employer] 1624-509ns Steinmann 3/32mm 9in Trocar Point Pin Fixation Stainless Steel - [id number] Explanted:Qty: 1 on 07/09/2019 at [facility] Left: Ankle [employer] [id number] / / [email or web address] Inc [id number] K-Wire 1.4mm 228mm Wire Fixation - [id number] Explanted:Qty: 4 on 07/01/2020 at [facility] Left: Ankle [email or web address] Inc [id number] / / [employer] 1600-9455ns Jesus .45in 9in 1 Trocar Point Orthopedic Wire Fixation - [id number] Explanted:Qty: 1 on 07/01/2020 at [facility] Left: Foot [employer] [id number] S / / Orthohelix [id number] Maxtorque 7mm 75mm Cannulated Self Drill Foot Ankle Petite Thread - [id number] Implanted:Qty: 1 on 07/09/2019 by Sae Su MD at [facility] Explanted:Qty: 1 on 07/01/2020 at [facility] Left: Ankle Orthohelix MSD-010-70 -075P / / Orthohelix [id number] Maxtorque 7mm 80mm Cannulated Self Drill Short Thread Screw Bone - [id number] Implanted:Qty: 1 on 07/09/2019 by Sae Su MD at [facility] Explanted:Qty: 1 on 07/01/2020 at [facility] Left: Ankle Orthohelix MSD-010-70 -[id number] / / Procedures Procedure Name Priority Date/Time Associated Diagnosis Comments XR ANKLE LEFT 3 OR MORE VIEWS Schedule Routine, Read Routine (OP Routine) 03/25/2024 7:39 AM ELEVATOR CONSTRUCTOR HYDRAULIC Left ankle pain, unspecified chronicity XR FOOT LEFT 3 OR MORE VIEWS Schedule Routine, Read Routine (OP Routine) 03/25/2024 7:39 AM ELEVATOR CONSTRUCTOR HYDRAULIC Pain in left foot ORTHO CASTING/SPLINTING Routine 02/21/19 8:31 AM ELEVATOR CONSTRUCTOR HYDRAULIC Left foot pain XR ANKLE LEFT 3 OR MORE VIEWS Schedule Routine, Read Routine (OP Routine) 02/22/2024 7:30 AM ELEVATOR CONSTRUCTOR HYDRAULIC Left ankle pain, unspecified chronicity XR FOOT LEFT 3 OR MORE VIEWS Schedule Routine, Read Routine (OP Routine) 02/22/2024 7:29 AM ELEVATOR CONSTRUCTOR HYDRAULIC Left foot pain NV CAST SUP SHRT LEG FIBERGLASS Routine 02/05/2024 8:24 AM ELEVATOR CONSTRUCTOR HYDRAULIC Left ankle pain, unspecified chronicity NV APPLICATION SHORT LEG CAST BELOW KNEE-TOE Routine 02/05/2024 8:24 AM ELEVATOR CONSTRUCTOR HYDRAULIC Left ankle pain, unspecified chronicity NV CAST SUP SHRT LEG FIBERGLASS Routine 01/24/2024 12:25 PM ELEVATOR CONSTRUCTOR HYDRAULIC Left ankle pain, unspecified chronicity NV APPLICATION SHORT LEG CAST BELOW KNEE-TOE Routine 01/24/2024 12:25 PM ELEVATOR CONSTRUCTOR HYDRAULIC Left ankle pain, unspecified chronicity XR FOOT LEFT 3 OR MORE VIEWS Schedule Routine, Read Routine (OP Routine) 01/24/2024 10:57 AM ELEVATOR CONSTRUCTOR HYDRAULIC Pain in left foot XR ANKLE LEFT 3 OR MORE VIEWS Schedule Routine, Read Routine (OP Routine) 01/24/2024 10:57 AM ELEVATOR CONSTRUCTOR HYDRAULIC Left ankle pain, unspecified chronicity EGFR Routine 01/09/2024 9:45 PM ELEVATOR CONSTRUCTOR HYDRAULIC DIFFERENTIAL AUTO Routine 01/09/2024 9:4 5 PM ELEVATOR CONSTRUCTOR HYDRAULIC CBC WITH AUTO DIFFERENTIAL Routine 01/09/2024 9:45 PM ELEVATOR CONSTRUCTOR HYDRAULIC BASIC METABOLIC PANEL Routine 01/09/2024 9:45 PM ELEVATOR CONSTRUCTOR HYDRAULIC FL FLUOROSCOPY < 1 HOUR IP Routine 01/09/20 12:10 PM ELEVATOR CONSTRUCTOR HYDRAULIC MYCOBACTERIOLOGY AFB CULTURE AND ACID-FAST STAIN Routine 01/09/2024 9:06 AM ELEVATOR CONSTRUCTOR HYDRAULIC MYCOLOGY (FUNGAL) CULTURE AND STAIN Routine 01/09/2024 9:06 AM ELEVATOR CONSTRUCTOR HYDRAULIC TISSUE AEROBIC AND ANAEROBIC CULTURE AND GRAM STAIN Routine 01/09/2024 9:06 AM ELEVATOR CONSTRUCTOR HYDRAULIC MYCOBACTERIOLOGY AFB CULTURE AND ACID-FAST STAIN Routine 01/09/2024 8:56 AM ELEVATOR CONSTRUCTOR HYDRAULIC MYCOLOGY (FUNGAL) CULTURE AND STAIN Routine 01/09/2024 8:56 AM ELEVATOR CONSTRUCTOR HYDRAULIC TISSUE AEROBIC AND ANAEROBIC CULTURE AND GRAM STAIN Routine 01/09/2024 8:56 AM ELEVATOR CONSTRUCTOR HYDRAULIC MYCOBACTERIOLOGY AFB CULTURE AND ACID-FAST STAIN Routine 01/09/2024 8:47 AM ELEVATOR CONSTRUCTOR HYDRAULIC MYCOLOGY (FUNGAL) CULTURE AND STAIN Routine 01/09/2024 8:47 AM ELEVATOR CONSTRUCTOR HYDRAULIC TISSUE AEROBIC AND ANAEROBIC CULTURE AND GRAM STAIN Routine 01/09/2024 8:47 AM ELEVATOR CONSTRUCTOR HYDRAULIC NV AN PROCEDURE PLACEHOLDER Routine 01/09/2024 8:06 AM ELEVATOR CONSTRUCTOR HYDRAULIC NV AN ELECTIVE ENDOTRACHEAL AIRWAY Routine 01/09/2024 8:06 AM ELEVATOR CONSTRUCTOR HYDRAULIC OSTEOTOMY CALCANEUS 01/09/2024 7 :32 AM ELEVATOR CONSTRUCTOR HYDRAULIC Deformity of ankle joint, right Case Notes 05: Message sent blank dpc -bt ARTHROPLASTY TOTAL ANKLE 01/09/2024 7:32 AM ELEVATOR CONSTRUCTOR HYDRAULIC Deformity of ankle joint, right Case Notes 05: Message sent blank dpc -bt from Last 3 Months Results * XR Ankle Left 3+ View (03/25/2024 7:39 AM ELEVATOR CONSTRUCTOR HYDRAULIC) Anatomical Region Laterality Modality Lower Extremities, Ankle Left Compute d Radiography 03/25/2024 8:54 AM ELEVATOR CONSTRUCTOR HYDRAULIC Impressions 03/25/2024 8:54 AM ELEVATOR CONSTRUCTOR HYDRAULIC 1. Unchanged revised left total ankle arthroplasty in near anatomic position with healing, instrumented medial displacement calcaneal calcaneal osteotomy. 2. Unchanged healed, solidly fused subtalar arthrodesis 3. Pes planovalgus The radiology attending physician has personally reviewed this study, and had reviewed and/or edited this written report and agrees with it. Electronically signed by: Figueroa Porras MD, PHD Narrative 03/25/2024 8:54 AM ELEVATOR CONSTRUCTOR HYDRAULIC EXAMINATION: XR FOOT LEFT 3 OR MORE [...] Foot Left 3+ View (03/25/2024 7:39 AM ELEVATOR CONSTRUCTOR HYDRAULIC) Anatomical Region Laterality Modality Lower Extremities, Foot Left Computed Radiography 03/25/2024 8:54 AM ELEVATOR CONSTRUCTOR HYDRAULIC Impressions 03/25/2024 8:54 AM ELEVATOR CONSTRUCTOR HYDRAULIC 1. Unchanged revised left total ankle arthroplasty in near anatomic position with healing, instrumented medial displacement calcaneal calcaneal osteotomy. 2. Unchanged healed, solidly fused subtalar arthrodesis 3. Pes planovalgus The radiology attending physician has personally reviewed this study, and had reviewed and/or edited this written report and agrees with it. Electronically signed by: Figueroa Porras MD, PHD Narrative 03/25/2024 8:54 AM ELEVATOR CONSTRUCTOR HYDRAULIC EXAMINATION: XR FOOT LEFT 3 OR MORE [...] * Ortho Casting/Splinting Documentation (02/22/2024 8:31 AM ELEVATOR CONSTRUCTOR HYDRAULIC) Narrative Sae Su MD - 02/22/2024 8:31 AM ELEVATOR CONSTRUCTOR HYDRAULIC Teresita Simon MS 02/22/2024 8:31 AM Ortho Casting/Splinting Documentation Date/Time: 02/22/2024 8:31 AM Performed by: Teresita Simon MS Authorized by: Sae Su MD Sensation: Normal Skin Condition: Clean, dry, and intact [place]/Sutures Removed: No Pin Pulled: No Cast Removed: [...] 3 or More Views (02/22/2024 7:30 AM ELEVATOR CONSTRUCTOR HYDRAULIC) Anatomical Region Laterality Modality Lower Extremities, Ankle Left Compute d Radiography 02/22/2024 7:41 AM ELEVATOR CONSTRUCTOR HYDRAULIC Impressions 02/22/2024 7:41 AM ELEVATOR CONSTRUCTOR HYDRAULIC Revision left total ankle arthroplasty in near-anatomic position. Healing instrumented calcaneal osteotomy. Electronically signed by: Aryan Spangler M.D. Narrative 02/22/2024 7:41 AM ELEVATOR CONSTRUCTOR HYDRAULIC EXAMINATION: XR FOOT LEFT 3 OR MORE [...] 3 or More Views (02/22/2024 7:29 AM ELEVATOR CONSTRUCTOR HYDRAULIC) Anatomical Region Laterality Modality Lower Extremities, Foot Left Computed Radiography 02/22/2024 7:41 AM ELEVATOR CONSTRUCTOR HYDRAULIC Impressions 02/22/2024 7:41 AM ELEVATOR CONSTRUCTOR HYDRAULIC Revision left total ankle arthroplasty in near-anatomic position. Healing instrumented calcaneal osteotomy. Electronically signed by: Aryan Spangler M.D. Narrative 02/22/2024 7:41 AM ELEVATOR CONSTRUCTOR HYDRAULIC EXAMINATION: XR FOOT LEFT 3 OR MORE [...] IMG XR PROCEDURES Chata l Result * NV APPLICATION SHORT LEG CAST BELOW KNEE-TOE, NV CAST SUP SHRT LEG FIBERGLASS (02/05/2024 8:24 AM ELEVATOR CONSTRUCTOR HYDRAULIC) Narrative Teresita Simon MS - 02/05/2024 8:24 AM ELEVATOR CONSTRUCTOR HYDRAULIC Teresita Simon MS 02/21/2024 8:24 AM Ortho [...] IN CLINIC/BEDSIDE DINA CLINE Final Result * NV APPLICATION SHORT LEG CAST BELOW KNEE-TOE, NV CAST SUP SHRT LEG FIBERGLASS (01/24/2024 12:25 PM ELEVATOR CONSTRUCTOR HYDRAULIC) Narrative Sae Su MD - 01/24/2024 12:25 PM ELEVATOR CONSTRUCTOR HYDRAULIC Sae Su MD 01/28/2024 12:59 AM Ortho [...] Foot Left 3+ View (01/24/2024 10:57 AM ELEVATOR CONSTRUCTOR HYDRAULIC) Anatomical Region Laterality Modality Lower Extremities, Foot Left Computed Radiography 01/24/2024 4:10 PM ELEVATOR CONSTRUCTOR HYDRAULIC Impressions 01/24/2024 9:23 PM ELEVATOR CONSTRUCTOR HYDRAULIC Revision left total ankle arthroplasty in expected position with healing interval instrumented calcaneal osteotomy and surrounding soft tissue swelling. Dictated by: Avis Vega MD, MPH The radiology attending physician has personally reviewed this study, and had reviewed and/or edited this written report and agrees with it. Electronically signed by: Saji Hdz MD Narrative 01/24/2024 9:23 PM ELEVATOR CONSTRUCTOR HYDRAULIC EXAMINATION: XR ANKLE LEFT 3 OR MORE [...] Ankle Left 3+ View (01/24/2024 10:57 AM ELEVATOR CONSTRUCTOR HYDRAULIC) Anatomical Region Laterality Modality Lower Extremities, Ankle Left Compute d Radiography 01/24/2024 4:10 PM ELEVATOR CONSTRUCTOR HYDRAULIC Impressions 01/24/2024 9:23 PM ELEVATOR CONSTRUCTOR HYDRAULIC Revision left total ankle arthroplasty in expected position with healing interval instrumented calcaneal osteotomy and surrounding soft tissue swelling. Dictated by: Avis Vega MD, MPH The radiology attending physician has personally reviewed this study, and had reviewed and/or edited this written report and agrees with it. Electronically signed by: Saji Hdz MD Narrative 01/24/2024 9:23 PM ELEVATOR CONSTRUCTOR HYDRAULIC EXAMINATION: XR ANKLE LEFT 3 OR MORE [...] l Result * eGFR (01/09/2024 9:45 PM ELEVATOR CONSTRUCTOR HYDRAULIC) eGFR 83 >=60 mL/min/1. 73 m2 Comment: [...] last reviewed 2020. Blood 01/09/2024 9:45 PM ELEVATOR CONSTRUCTOR HYDRAULIC 01/09/2024 10:26 PM ELEVATOR CONSTRUCTOR HYDRAULIC us Halley Shields NP LAB BLOOD ORDERABLES Final Result [facility] Department [place] [address] * (ABNORMAL) Differential, auto (01/09/2024 9:45 PM ELEVATOR CONSTRUCTOR HYDRAULIC) Neutrophil abs 12.8(H) 1.5 - 6.5 K/cumm Imm gran abs 0.1 0.0 - 0.1 K/cumm [facility] Lymphocyte abs 1.4 0.8 - 3.3 K/cumm [facility] Monocyte abs 1.1(H) 0.2 - 0.8 K/cumm [facility] Eosinophil abs 0.0 0.0 - 0.5 K/cumm [facility] Basophil abs 0.0 0.0 - 0.1 K/cumm [facility] Neutrophil pct 82.8 % [facility] Comment: Interpretive Data Percent cell count reference ranges are not reported, since discordance with absolute values may lead to misinterpretation of CBC data. Current Interpretive Data was last revised on 2017. Imm gran pct 0.7 % [facility] Comment: Interpretive Data Percent cell count reference ranges are not reported, since discordance with absolute values may lead to misinterpretation of CBC data. Current Interpretive Data was last revised on 2017. Lymphocyte pct 9.2 % [facility] Comment: Interpretive Data Percent cell count reference ranges are not reported, since discordance with absolute values may lead to misinterpretation of CBC data. Current Interpretive Data was last revised on 2017. Monocyte pct 7.1 % [facility] Comment: Interpretive Data Percent cell count reference ranges are not reported, since discordance with absolute values may lead to misinterpretation of CBC data. Current Interpretive Data was last revised on 2017. Eosinophil pct 0.0 % [facility] Comment: Interpretive Data Percent cell count reference ranges are not reported, since discordance with absolute values may lead to misinterpretation of CBC data. Current Interpretive Data was last revised on 2017. Basophil pct 0.2 % [facility] Comment: Interpretive Data Percent cell count reference ranges are not reported, since discordance with absolute values may lead to misinterpretation of CBC data. Current Interpretive Data was last revised on 2017. Blood 01/09/2024 9:45 PM ELEVATOR CONSTRUCTOR HYDRAULIC 01/09/2024 10:25 PM ELEVATOR CONSTRUCTOR HYDRAULIC us Halley Shields NP LAB BLOOD ORDERABLES Final Result [facility] [place] [address] * (ABNORMAL) CBC with auto differential (01/09/2024 9:45 PM ELEVATOR CONSTRUCTOR HYDRAULIC) [facility] WBC 15.4(H) 3.8 - 9.9 K/cumm Hgb 14.5 13.0 - 17.5 g/dL [facility] Hct 43.9 38.9 - 50.3 % [facility] Plt 208 150 - 400 K/cumm [facility] MPV 9.4 9.1 - 12.3 fL [facility] RBC 4.87 4.30 - 5.80 M/cumm [facility] MCV 90.1 81.3 - 96.4 fL [facility] MCH 29.8 27.1 - 33.3 pg [facility] MCHC 33.0 32.3 - 35.7 g/dL [facility] RDW CV 13.8 11.1 - 14.9 % [facility] RDW SD 46.2 35.7 - 48.1 fL [facility] NRBC abs 0.00 0.00 - 0.01 K/cumm [facility] Blood 01/09/2024 9:45 PM ELEVATOR CONSTRUCTOR HYDRAULIC 01/09/2024 10:25 PM ELEVATOR CONSTRUCTOR HYDRAULIC us Halley Shields AIRWORTHINESS SAFETY INSPECTOR LAB BLOOD ORDERABLES Final Result [facility] [facility] [place] [address] * Basic metabolic panel (01/09/2024 9:45 PM ELEVATOR CONSTRUCTOR HYDRAULIC) [facility] Sodium 140 135 - 145 mmol/L Potassium, pl 4.5 3.3 - 4.9 mmol/L [facility] Chloride 102 97 - 110 mmol/L [facility] CO2 30 22 - 32 mmol/L [facility] Anion gap 8 2 - 15 mmol/L [facility] BUN 15 6 - 25 mg/dL [facility] Creatinine 1.03 0.80 - 1.30 mg/dL [facility] Glucose 104 70 - 199 mg/dL [facility] Comment: Interpretive Data Fasting glucose >/= [...] Calcium 8.7 8.5 - 10.3 mg/dL [facility] Blood 01/09/2024 9:45 PM ELEVATOR CONSTRUCTOR HYDRAULIC 01/09/2024 10:26 PM ELEVATOR CONSTRUCTOR HYDRAULIC us Halley Shields AIRWORTHINESS SAFETY INSPECTOR LAB BLOOD ORDERABLES Final Result Performing Organization Address [facility]/ZIP Co de Phone Number [facility] [place] [address] * FL Fluoroscopy < 1 Hour (01/09/2024 12:10 PM ELEVATOR CONSTRUCTOR HYDRAULIC) Narrative [facility] - 01/09/2024 12:10 PM ELEVATOR CONSTRUCTOR HYDRAULIC The images from this study are not interpreted by Radiology. Please refer to the physician's procedure / OR operative note. us Sae Su MD IMG FLUOROSCOPY PROCED URES Final Result Performing Organization Address [facility] Co de Phone Number [facility] * Tissue aerobic and anaerobic culture and gram stain Tissue Ankle, left (01/09/2024 9:06 AM ELEVATOR CONSTRUCTOR HYDRAULIC) Direct Specimen Exam Stain: Rare polymorphonuclear leukocytes seen. No organisms seen. Report Final Report: No growth [facility] Tissue (Ankle, left) 01/09/2024 9:06 AM ELEVATOR CONSTRUCTOR HYDRAULIC 01/09/2024 2:04 PM ELEVATOR CONSTRUCTOR HYDRAULIC Narrative [facility] - 01/14/2024 9:47 AM ELEVATOR CONSTRUCTOR HYDRAULIC Left Ankle Anterior Joint Specimen received in anaerobic transport media. Testing performed by [facility] ([phone]) Specimens submitted from normally sterile body sites [...] ERAL ORDERABLES Final Result Performing Organization Address City/[facility]/ZIP Co de Phone Number [facility] [place] [address] * Mycology (fungal) culture and stain Tissue Ankle, left (01/09/2024 9:06 AM ELEVATOR CONSTRUCTOR HYDRAULIC) Direct Specimen Exam Stain: No Fungal elements seen. Report Final Report: No growth of fungus [facility] Tissue (Ankle, left) 01/09/2024 9:06 AM ELEVATOR CONSTRUCTOR HYDRAULIC 01/09/2024 2:04 PM ELEVATOR CONSTRUCTOR HYDRAULIC Narrative [facility] - 02/06/2024 10:50 AM ELEVATOR CONSTRUCTOR HYDRAULIC Left Ankle Anterior Joint Specimen received in anaerobic transport media. Testing performed by [facility] ([phone]). Sae Su MD LAB MICROBIOLOGY - GEN ERAL ORDERABLES Final Result Performing Organization Address City/[facility]/ZIP Co de Phone Number [facility] [place] [address] * Mycobacteriology (AFB) culture and acid-fast stain Tissue Ankle, left (01/09/2024 9:06 AM ELEVATOR CONSTRUCTOR HYDRAULIC) Direct Specimen Exam Stain: No Acid-fast bacilli seen Direct Specimen Exam Auramine-Rho damine Stain: Previously reported results on this patient were deleted. [facility] Report Final Report: No growth of acid-fast bacilli [facility] Tissue (Ankle, left) 01/09/2024 9:06 AM ELEVATOR CONSTRUCTOR HYDRAULIC 01/09/2024 2:04 PM ELEVATOR CONSTRUCTOR HYDRAULIC Narrative [facility] - 03/12/2024 12:56 PM ELEVATOR CONSTRUCTOR HYDRAULIC Left Ankle Anterior Joint Specimen received in anaerobic transport media. Testing performed by [facility] ([phone]). Sae Su MD LAB MICROBIOLOGY - GEN ERAL ORDERABLES Final Result Performing Organization Address [facility] Co de Phone Number [facility] [place] [employer] [place] [address] * Tissue aerobic and anaerobic culture and gram stain Tissue Ankle, left (01/09/2024 8:56 AM ELEVATOR CONSTRUCTOR HYDRAULIC) Direct Specimen Exam Stain: No polymorphonuclear leukocytes seen. No organisms seen. Report Final Report: No growth [facility] Tissue (Ankle, left) 01/09/2024 8:56 AM ELEVATOR CONSTRUCTOR HYDRAULIC 01/09/2024 1:43 PM ELEVATOR CONSTRUCTOR HYDRAULIC Narrative [facility] - 01/14/2024 9:48 AM ELEVATOR CONSTRUCTOR HYDRAULIC Left Ankle Medial Gutter Specimen received in anaerobic transport media. Testing performed by [facility] ([phone]) Specimens submitted from normally sterile body sites [...] ERAL ORDERABLES Final Result Performing Organization Address City/[facility] Co de Phone Number [facility] [place] [address] * Mycology (fungal) culture and stain Tissue Ankle, left (01/09/2024 8:56 AM ELEVATOR CONSTRUCTOR HYDRAULIC) Direct Specimen Exam Stain: No Fungal elements seen. Report Final Report: No growth of fungus [facility] Tissue (Ankle, left) 01/09/2024 8:56 AM ELEVATOR CONSTRUCTOR HYDRAULIC 01/09/2024 1:43 PM ELEVATOR CONSTRUCTOR HYDRAULIC [facility] 02/06/2024 10:51 AM ELEVATOR CONSTRUCTOR HYDRAULIC Left Ankle Medial Gutter Specimen received in anaerobic transport media. Testing performed by [facility] ([phone]). Sae Su MD LAB MICROBIOLOGY - GEN ERAL ORDERABLES Final Result Performing Organization Address City/[facility]/ZIP Co de Phone Number [facility] [place] [address] * Mycobacteriology (AFB) culture and acid-fast stain Tissue Ankle, left (01/09/2024 8:56 AM ELEVATOR CONSTRUCTOR HYDRAULIC) Pathologist [facility] Direct Specimen Exam Stain: No Acid-fast bacilli seen Direct Specimen Exam Auramine-Rho damine Stain: Previously reported results on this patient were deleted. [facility] Report Final Report: No growth of acid-fast bacilli [facility] Tissue (Ankle, left) 01/09/2024 8:56 AM ELEVATOR CONSTRUCTOR HYDRAULIC 01/09/2024 1:43 PM ELEVATOR CONSTRUCTOR HYDRAULIC Narrative [facility] 03/12/2024 12:56 PM ELEVATOR CONSTRUCTOR HYDRAULIC Left Ankle Medial Gutter Specimen received in anaerobic transport media. Testing performed by [facility] ([phone]). us Sae Su MD LAB MICROBIOLOGY - GEN ERAL ORDERABLES Final Result [facility] [place] [address] * Tissue aerobic and anaerobic culture and gram stain Tissue Ankle, left (01/09/2024 8:47 AM ELEVATOR CONSTRUCTOR HYDRAULIC) Direct Specimen Exam Stain: No polymorphonuclear leukocytes seen. No organisms seen. Report Final Report: No growth [facility] Tissue (Ankle, left) 01/09/2024 8:47 AM ELEVATOR CONSTRUCTOR HYDRAULIC 01/09/2024 2:07 PM ELEVATOR CONSTRUCTOR HYDRAULIC Narrative [facility] - 01/14/2024 9:46 AM ELEVATOR CONSTRUCTOR HYDRAULIC Left Ankle Joint Capsule Specimen received in anaerobic transport media. Testing performed by [facility] ([phone]) Specimens submitted from normally sterile body sites [...] ERAL ORDERABLES Final Result Performing Organization Address City/[facility]/ZIP Co de Phone Number [facility] [place] [address] * Mycology (fungal) culture and stain Tissue Ankle, left (01/09/2024 8:47 AM ELEVATOR CONSTRUCTOR HYDRAULIC) Direct Specimen Exam Stain: No Fungal elements seen. Report Final Report: No growth of fungus [facility] Tissue (Ankle, left) 01/09/2024 8:47 AM ELEVATOR CONSTRUCTOR HYDRAULIC 01/09/2024 2:07 PM ELEVATOR CONSTRUCTOR HYDRAULIC Narrative [facility] - 02/06/2024 10:50 AM ELEVATOR CONSTRUCTOR HYDRAULIC Left Ankle Joint Capsule Specimen received in anaerobic transport media. Testing performed by [facility] ([phone]). us Sae Su MD LAB MICROBIOLOGY - GEN ERAL ORDERABLES Final Result [facility] [place] [address] * Mycobacteriology (AFB) culture and acid-fast stain Tissue Ankle, left (01/09/2024 8:47 AM ELEVATOR CONSTRUCTOR HYDRAULIC) Direct Specimen Exam Stain: No Acid-fast bacilli seen Direct Specimen Exam Auramine-Rho damine Stain: Previously reported results on this patient were deleted. [facility] Report Final Report: No growth of acid-fast bacilli [facility] Tissue (Ankle, left) 01/09/2024 8:47 AM ELEVATOR CONSTRUCTOR HYDRAULIC 01/09/2024 2:07 PM ELEVATOR CONSTRUCTOR HYDRAULIC Narrative [facility] - 03/12/2024 12:56 PM ELEVATOR CONSTRUCTOR HYDRAULIC Left Ankle Joint Capsule Specimen received in anaerobic transport media. Testing performed by [facility] ([phone]). us Sae Su MD LAB MICROBIOLOGY - GEN ERAL ORDERABLES Final Result [facility] [place] [address] * [place] AN ELECTIVE ENDOTRACHEAL AIRWAY, [place] AN PROCEDURE PLACEHOLDER (01/09/2024 8:06 AM ELEVATOR CONSTRUCTOR HYDRAULIC) Narrative Stew Doyle CRNA - 01/09/2024 8:06 AM ELEVATOR CONSTRUCTOR HYDRAULIC Stew Doyle CRNA 01/09/2024 8:07 AM Airway Patient location: OR Urgency: elective Indications for airway management: anesthesia Difficult airway: no Staff: Placed by: HOME MAKER: Stew Doyle CRNA Emergent airway documentation: Risks [...] from Last 3 Months Insurance [facility] [employer] [place] [facility] PPO [facility] OPEN ACCESS CIG[employer] Member Subscriber Plan / Payer (Ef fective 2020-Present) Name:Carly Lawson Member ID:[id number] Relation to Subscriber:Self Name:Carly Lawson Subscriber ID:[id number] Payer ID:[id number] ([facility]) Group ID:[id number] Type:COMMERCIAL [facility] Member Subscriber Plan / Payer (Ef fective 2002-Present) Name:Carly Lawson Relation to Subscriber:Self Name:Carly Lawson Payer ID:[id number] ([facility]) Group ID:[id number] Type:[employer]IG[employer] HMO/PPO Address: [facility] [address] [place] [address] [facility] [employer] [place] Member Subscriber Plan / Payer (Ef fective 2021-Present) Name:Carly Lawson Relation to Subscriber:Self Name:Carly Lawson Payer ID:[id number] Group ID:[id number] Type:COMMERCIAL Address: [id number] [place] [address] MEDICARE [employer] [place] Member Subscriber Plan / Payer (Ef fective 2018-Present) Name:Carly Lawson Relation to Subscriber:Self Name:Carly Lawson Payer ID:[id number] Group ID:[id number] Type:COMMERCIAL Address: [place] [address] Advance Directives For more information, please contact: [phone] * Full Code (Latest Code Status on [...] 5:22 PM 07/09/2019 5:25 AM Care Teams Associate Broker Relationship Specialty Start Date End Date Kristina Romero MD PCP - General 10/03/17 Chloe Lewis, MILL ROLL OPERATOR Elementary Science Teacher Physical Therapy 10/20/17 Susan Pro, TAMY Physical Therapist Physical Therapy 11/06/17
== END 2024-03-28 07:01 | disposition home or self-care (01) ==
LOC: ANHLAB 03-29 11:25
PROVIDERS: PCP Family Medicine; Visit Provider Plastic Surgery
DX: D21.11 Benign neoplasm of connective and other soft tissue of right upper limb, including shoulder (principal)
CPT/HCPCS: 88304

== ENCOUNTER 2024-04-08 12:40 | Outpatient (CLI) | payer MEDICARE, SELFPAY ==
--- NOTE | ~2024-04-08 | CT_ITS ---
CLINICAL INDICATION: Left-sided abdominal pain COMPARISON: None. TECHNIQUE: Multiple contiguous axial images of the abdomen and pelvis were performed without the admi nistration of intravenous contrast The dose-length product (DLP) was 1118.58 mGy-cm. Automated exposure control and iterative reconstruction technique were employed. FINDINGS/OBSERVATIONS: Visualized lower thorax: The bilateral lung bases are clear. The heart is of normal size, without pericardial effusion. Small hiatal hernia is present. Liver: The liver demonstrates homogeneous attenuation and is enlarged measuring 20 cm in longitudinal dimens ion. Gallbladder and biliary system: The gallbladder is decompressed, and otherwise unremarkable. Pancreas: Limited evaluation of the pancreas secondary to the lack of intravenous contrast. Spleen: The spleen demonstrates homogeneous attenuation and is not enlarged measuring 10 cm in longitudinal d imension. Kidneys: Exophytic from the posterior lower pole of the left kidney is a 12 x 13 x 14 mm focus of sof t tissue attenuation, too small to characterize on this noncontrast enhanced study for which focused ultrasound is recommended for further evaluation. The remainder of the bilateral kidneys are otherwise unremarkable, without hydronephrosis or renal ca lculi. Adrenal glands: Unremarkable. Gastrointestinal tract: Colonic diverticulosis without surrounding inflammatory change. Appendix: The air-filled appendix is of normal caliber (axial series, image 106). Vasculature: Unremarkable. Lymph nodes: Limited evaluation without intravenous contrast. Pelvic structures: The bladder is only minimally distended, and otherwise unremarkable. The prostate gland is not enlarged, demonstrating mass effect on the base of the bladder. Body wall and musculoskeletal: Small fat-containing umbilical hernia. Degenerative disease within the lumbosacral spine with osteophyte formation, disc space narrowing, en dplate changes and vacuum phenomena. Straightening of the normal curvature of the lumbar spine is als o identified. IMPRESSION: No obstructive uropathy. 14 mm focus of soft tissue attenuation exophytic from the left kidney for which focused ultrasound is recommended for further evaluation. Hepatomegaly. Reviewed, dictated and finalized at location A. GHT BRAKE OPERATOR
== END 2024-04-08 12:41 | disposition home or self-care (01) ==
LOC: GOSHIMG 12:40
PROVIDERS: PCP Family Medicine; Visit Provider Nurse Practitioner Family
DX: R93.422 Abnormal radiologic findings on diagnostic imaging of left kidney (principal); R16.0 Hepatomegaly, not elsewhere classified
CPT/HCPCS: 74176

== ENCOUNTER 2024-04-11 10:12 | Outpatient (CLI) | payer MEDICARE, SELFPAY | END 2024-04-11 10:13 | disposition home or self-care (01) | LOC: GOSHIMG 10:13 | PROVIDERS: PCP Nurse Practitioner Family; Visit Provider Nurse Practitioner Family | DX: R93.429 Abnormal radiologic findings on diagnostic imaging of unspecified kidney (principal) | CPT/HCPCS: 76775 ==

== ENCOUNTER 2024-04-18 09:42 | Outpatient (CLI) | payer MEDICARE, SELFPAY ==
--- NOTE | ~2024-04-18 | MR_ITS ---
EXAMINATION: MR renal wo/w con DATE: 04/18/2024 10:50 INDICATION: Unspecified abdominal pain. Left kidney mass on prior CT. TECHNIQUE: Magnetic resonance imaging (MRI) of the abdomen was performed without and with 20 mL Multi booker intravenous contrast. Sequences included coronal T2-weighted SS-FSE, coronal and axial FS 2D-F IESTA, axial STIR FSE, axial T2-weighted SS-FSE, axial T2-weighted FS SS-FSE, axial diffusion-weighte d SE, axial dual-echo T1-weighted FSPGR, and axial and coronal T1-weighted LAVA. Postcontrast axial T 1-weighted LAVA images were obtained in a time course. Postcontrast coronal T1-weighted LAVA images w ere obtained. COMPARISON: None. FINDINGS: Heart size is normal. No pericardial or pleural effusion. 11 mm T2 hyperintense nonenhancing cyst at the junction of the right and left hepatic lobe. Spleen, pancreas, bilateral adrenal glands and right kidney are normal. T2 hyperintense nonenhancing cyst at the anterior mid left kidney. There is a sec ond 1.3 cm nonenhancing exophytic complex cyst at the lower pole the left kidney which is T2 hyperint ense with a small dependently layering region of low T2, high T1 blood, calcium or proteinaceous debr is. The second complex cyst corresponds to the lesion of concern on prior CT. No abnormally enhancing renal lesions to suggest neoplasm. There are few scattered clonic diverticula without adjacent infla mmatory stranding to suggest diverticular colitis. Small bowel and appendix are normal. No pathologic ally enlarged abdominal or upper pelvic lymphadenopathy. Severe lumbar spondylosis. IMPRESSION: 1. 1.3 cm exophytic complex proteinaceous/hemorrhagic cyst at the lower pole the left kidney correspo nding to the lesion of concern on prior CT. Reviewed, dictated and finalized at location L. ERCIAL PRODUCER IMPRESSION: 1. 1.3 cm exophytic complex proteinaceous/hemorrhagic cyst at the lower pole th e left kidney corresponding to the lesion of concern on prior CT.
== END 2024-04-18 09:43 | disposition home or self-care (01) ==
LOC: GOSHIMG 09:42
PROVIDERS: PCP Nurse Practitioner Family; Visit Provider Nurse Practitioner Family
DX: N28.1 Cyst of kidney, acquired (principal); R10.9 Unspecified abdominal pain
CPT/HCPCS: 74183; A9579

== ENCOUNTER 2024-04-24 09:08 | Outpatient (CLI) | payer MEDICARE, SELFPAY ==
--- OUTSIDE RECORDS SUMMARY | 2024-04-24 09:56 | XMS_ITS | Referral Summary ---
Author Organization [facility] [address] Address [address] [place] [address] Care Team Providers Care Soft Top Installer Name Role Phone Kristina Romero MD Primary Care Provider Chloe Lewis PTA Unavailable Unavailable Susan Pro PT Unavailable Unavailable Encounters Date Type Department Care Team Description 03/25/2024 7:30 AM CREW SUPERVISOR - 03/25/2024 11:59 PM CREW SUPERVISOR Hospital Encounter [facility] [address] [place] [address] Left ankle pain, unspecified chronicity Discharge Disposition: Discharge to home or self care 03/25/2024 7:30 AM CREW SUPERVISOR - 03/25/2024 11:59 PM CREW SUPERVISOR Hospital Encounter [facility] [address] [place] [address] Pain in left foot Discharge Disposition: Discharge to home or self care 03/25/2024 7:40 AM CREW SUPERVISOR Office Visit [facility] Orthopaedic Surgery [address] [place] [address] [address] [place] [phone] Sae Su MD Pain in left foot (Primary Dx); Left ankle pain, unspecified chronicity 02/22/2024 7:21 AM CREW SUPERVISOR - 02/22/2024 11:59 PM CREW SUPERVISOR Hospital Encounter [facility] [address] [place] [address] Left ankle pain, unspecified chronicity Discharge Disposition: Discharge to home or self care 02/22/2024 7:20 AM CREW SUPERVISOR - 02/22/2024 11:59 PM CREW SUPERVISOR Hospital Encounter [facility] [address] [place] [address] Left foot pain Discharge Disposition: Discharge to home or self care 02/22/2024 7:00 AM CREW SUPERVISOR Office Visit [facility] Orthopaedic Surgery [address] [place] [address] 2nd [address] [place] [address] Sae Su MD Left foot pain (Primary Dx); Left ankle pain, unspecified chronicity 02/05/2024 2:10 PM CREW SUPERVISOR Office Visit [facility] Orthopaedic Surgery [address] [place] [address] 2[address] [place] [address] Sae Su MD Left ankle pain, unspecified chronicity (Primary Dx) from Last 3 Months Allergies No known [...] Plan (09/18/2020 11:58 AM CDT): Mr. Carly Shaikh is a 55 y.o. male with PMH [...] (09/17/2020): Added automatically from request for surgery [id number] Assessment & Plan (12/21/2021 9:08 AM CREW SUPERVISOR): - Pt completed 1 year of treatment [...] then discuss stopping. - Refill sent to [facility] - Labs today for monitoring - [...] (06/11/2020): Added automatically from request for surgery [id number] Arthritis of left subtalar joint 02/07/2019 Overview (02/07/2019): Added automatically from request for surgery [id number] Encounter for preadmission testing 10/31/2017 Primary osteoarthritis of right knee 07/25/2016 Immunizations Immunization Administration Dates Next Due Influenza, Quadrivalent, Spl [...] on file Legal Sex Male 3:47 PM CREW SUPERVISOR Gender Identity Not on file Sexual Orientation Not on file Last Filed Vital Signs Vital Sign Reading Time Taken Comments Blood Pressure 136/77 01/10/2024 8:20 AM CREW SUPERVISOR Pulse 86 01/10/2024 9:20 AM CREW SUPERVISOR Temperature 37 C (98.6 F) 01/10/2024 8:20 AM CREW SUPERVISOR Respiratory Rate 18 01/10/2024 8:20 AM CREW SUPERVISOR Oxygen Saturation 91% 01/10/2024 8:20 AM CREW SUPERVISOR Inhaled Oxygen Concentration - - Weight 108.9 kg (240 lb) 01/10/2024 8:20 AM CREW SUPERVISOR Height 182.9 cm (6') 01/10/2024 8:20 AM CREW SUPERVISOR Body Mass Index 32.55 01/10/2024 8:20 AM CREW SUPERVISOR Plan of Treatment Not on file Goals Goal Patient Goal Type Associated Problems Recent Progress Patient-Stated? Author CCM Chronic Pain Care Plan Chronic Care Management Improving( 9:30 AM CREW SUPERVISOR) Pau Perez RN Note: Problem: Chronic Pain Goals: 1. Minimize further functional decline 2. Maximize quality of life 3. Control pain Strategies: - Activity/exercise program recommendation - Conservative stepwise pain medicine strategy with multi-disciplinary approach - Recommend healthy lifestyle strategies and compensatory methods as needed Medical Devices Implanted Type Area Cafe Associate Device Identifier Shelf Expiration Date Model / Serial / Lot Orthohelix Maxtorque 7mm 47.5mm Cannulated Self Drill Foot Ankle Petite [id number] - [id number] Implanted:Qty: 1 on 01/09/2024 by Sae Su MD at [facility] Left: Ankle Orthohelix [facility]-010-70- 475P / / Orthohelix Screw Bone Maxtorque Short Thread L47.5 Mm Od5.5 Mm Foot Ankle Self Drill Cannulated Nonsterile [id number]-[id number] - [id number] Implanted:Qty: 1 on 01/09/2024 by Sae Su MD at [facility] Screw Left: Ankle Orthohelix MSD-010-55- 475S / / Depuy Orthopaedics Inc [id number] Smartset High Viscosity Cement 40gm Bone Gentamicin - [id number] Implanted:Qty: 1 on 10/30/2017 by Andre Rivera MD at [facility] Right: Knee [employer]uy [employer] Inc 11/12/2018 [id number] / / [id number] Depuy Orth[employer]ed[employer] Inc [id number] Smartset High Viscosity Cement 40gm Bone Gentamicin - [id number] Implanted:Qty: 1 on 10/30/2017 by Andre Rivera MD at [facility] Right: Knee [employer] 11/12/2018 [id number] / / [id number] Depuy [employer] Inc [id number] Attune Cemented Posterior Stabilize Knee Right 6 Narrow Component - [id number] Implanted:Qty: 1 on 10/30/2017 by Andre Rivera MD at [facility] Right: Knee [employer] Orth[employer] Inc 06/13/2027 [id number] / / [id number] Depuy Orth[employer]ed[employer] Inc [id number] Attune S+ Cement Fix Bearing Knee 6 Baseplate Tibial - [id number] Implanted:Qty: 1 on 10/30/2017 by Andre Rivera MD at [facility] Right: Knee [employer] 04/13/2027 [id number] / / [id number] Depuy Orth[employer]ed[employer] Inc [id number] Attune 8mm Posterior Stabilize Fix Bearing Knee 6 Insert Tibial - [id number] Implanted:Qty: 1 on 10/30/2017 by Andre Rivera MD at [facility] Right: Knee [employer] Inc 05/13/2022 [id number] / / [id number] [employer] Inc 876p-0400 Mini Ignite Power Mix Injectable Graft 4ml Synthetic Tissue - [id number] - [id number] Implanted:Qty: 1 on 07/09/2019 by Sae Su MD at [facility] Left: Ankle [employer]in [employer] Inc 06/02/2023 [id number] / [id number] / [employer] Inc [id number] Infinity Ankle 4 Long Tray Tibial Adaptis - [id number] Implanted:Qty: 1 on 07/01/2020 by Sae Su MD at [facility] Left: Ankle [employer] [id number] 11/26/2026 [id number] / / [id number] [employer] Inc [id number] Taldome Infinity Adaptis Flatcut Sz3 - [id number] Implanted:Qty: 1 on 07/01/2020 by Sae Su MD at [facility] Left: Ankle [employer] Inc [id number] 05/21/2028 [id number] / / [id number] [employer] Inc [id number] Inbone 9mm Ankle 3+ Implant Fixation Everlast - [id number] Implanted:Qty: 1 on 07/01/2020 by Sae Su MD at [facility] Left: Ankle [employer] Inc [id number] 05/28/2027 [id number] / / [id number] Allosource [id number] 23mm Wedge Frozen Spine Graft Bone Tricortical Ilium - [id number] Implanted:Qty: 1 on 07/01/2020 by Sae Su MD at [facility] Left: Foot Allosource 01/27/2025 [id number] / / [id number] [employer] 1620-509ns Steinmann 5/64in 9in Trocar Point One End Pin Fixation Stainless - [id number] Implanted:Qty: 1 on 07/01/2020 by Sae Su MD at [facility] Left: Foot [employer] [id number] / / Axogen Inc Avance 1-2mm 70mm Allograft Graft Nerve Sterile [id number] - S0 - [id number] Implanted:Qty: 1 on 04/04/2023 by Mani Oseguera MD at [facility] Left: Ankle Axogen Inc 07/13/2025 [id number] / 0 / [id number] Rankin [employer] Inc Inbone 11mm Ankle 3+ Implant Fixation Everlast [id number] - [id number] Implanted:Qty: 1 on 01/09/2024 by Sae Su MD at [facility] Left: Ankle LOCK[employer] Inc 11/09/2029 [id number] / / [id number] Explanted Type Area Cafe Associate Device Identifier Shelf Expiration Date Model / Serial / Lot [employer] 1624-509ns Steinmann 3/32mm 9in Trocar Point Pin Fixation Stainless Steel - [id number] Explanted:Qty: 1 on 07/09/2019 at [facility] Left: Ankle [employer] [id number] / / Nala Technology Inc [id number] K-Wire 1.4mm 228mm Wire Fixation - [id number] Explanted:Qty: 4 on 07/01/2020 at [facility] Left: Ankle Nala [employer] Inc [id number] / / [employer] Instruments 1600-9455ns Jesus .45in 9in 1 Trocar Point Orthopedic Wire Fixation - [id number] Explanted:Qty: 1 on 07/01/2020 at [facility] Left: Foot [employer] 1600-9455N S / / Orthohelix [id number] Maxtorque 7mm 75mm Cannulated Self Drill Foot Ankle Petite Thread - [id number] Implanted:Qty: 1 on 07/09/2019 by Sae Su MD at [facility] Explanted:Qty: 1 on 07/01/2020 at [facility] Left: Ankle Orthohelix MSD-010-70 -075P / / Orthohelix [id number] Maxtorque 7mm 80mm Cannulated Self Drill Short Thread Screw Bone - [id number] Implanted:Qty: 1 on 07/09/2019 by Sae Su MD at [facility] Explanted:Qty: 1 on 07/01/2020 at [facility] Left: Ankle Orthohelix MSD-010-70 -[id number] / / Procedures Procedure Name Priority Date/Time Associated Diagnosis Comments XR ANKLE LEFT 3 OR MORE VIEWS Schedule Routine, Read Routine (OP Routine) 03/25/2024 7:39 AM CREW SUPERVISOR Left ankle pain, unspecified chronicity XR FOOT LEFT 3 OR MORE VIEWS Schedule Routine, Read Routine (OP Routine) 03/25/2024 7:39 AM CREW SUPERVISOR Pain in left foot ORTHO CASTING/SPLINTING Routine 02/22/2024 8:31 AM CREW SUPERVISOR Left foot pain XR ANKLE LEFT 3 OR MORE VIEWS Schedule Routine, Read Routine (OP Routine) 02/22/2024 7:30 AM CREW SUPERVISOR Left ankle pain, unspecified chronicity XR FOOT LEFT 3 OR MORE VIEWS Schedule Routine, Read Routine (OP Routine) 02/22/2024 7:29 AM CREW SUPERVISOR Left foot pain WA CAST SUP SHRT LEG FIBERGLASS Routine 02/05/2024 8:24 AM CREW SUPERVISOR Left ankle pain, unspecified chronicity WA APPLICATION SHORT LEG CAST BELOW KNEE-TOE Routine 02/05/2024 8:24 AM CREW SUPERVISOR Left ankle pain, unspecified chronicity from Last 3 Months Results * XR Ankle Left 3+ View (03/25/2024 7:39 AM CREW SUPERVISOR) Anatomical Region Laterality Modality Lower Extremities, Ankle Left Compute d Radiography 03/25/2024 8:54 AM CREW SUPERVISOR Impressions 03/25/2024 8:54 AM CREW SUPERVISOR 1. Unchanged revised left total ankle arthroplasty in near anatomic position with healing, instrumented medial displacement calcaneal calcaneal osteotomy. 2. Unchanged healed, solidly fused subtalar arthrodesis 3. Pes planovalgus The radiology attending physician has personally reviewed this study, and had reviewed and/or edited this written report and agrees with it. Electronically signed by: Figueroa Porras MD, PHD Narrative 03/25/2024 8:54 AM CREW SUPERVISOR EXAMINATION: XR FOOT LEFT 3 OR MORE [...] Foot Left 3+ View (03/25/2024 7:39 AM CREW SUPERVISOR) Anatomical Region Laterality Modality Lower Extremities, Foot Left Computed Radiography 03/25/2024 8:54 AM CREW SUPERVISOR Impressions 03/25/2024 8:54 AM CREW SUPERVISOR 1. Unchanged revised left total ankle arthroplasty in near anatomic position with healing, instrumented medial displacement calcaneal calcaneal osteotomy. 2. Unchanged healed, solidly fused subtalar arthrodesis 3. Pes planovalgus The radiology attending physician has personally reviewed this study, and had reviewed and/or edited this written report and agrees with it. Electronically signed by: Figueroa Porras MD, PHD Narrative 03/25/2024 8:54 AM CREW SUPERVISOR EXAMINATION: XR FOOT LEFT 3 OR MORE [...] * Ortho Casting/Splinting Documentation (02/22/2024 8:31 AM CREW SUPERVISOR) Narrative Sae Su MD - 02/22/2024 8:31 AM CREW SUPERVISOR Teresita Simon MS 02/22/2024 8:31 AM Ortho Casting/Splinting Documentation Date/Time: 02/22/2024 8:31 AM Performed by: Teresita Simon MS Authorized by: Sae Su MD Sensation: Normal Skin Condition: Clean, dry, and intact [place]/Sutures Removed: No Pin Pulled: No Cast Removed: [...] 3 or More Views (02/22/2024 7:30 AM CREW SUPERVISOR) Anatomical Region Laterality Modality Lower Extremities, Ankle Left Compute d Radiography 02/22/2024 7:41 AM CREW SUPERVISOR Impressions 02/22/2024 7:41 AM CREW SUPERVISOR Revision left total ankle arthroplasty in near-anatomic position. Healing instrumented calcaneal osteotomy. Electronically signed by: Aryan Spangler M.D. Narrative 02/22/2024 7:41 AM CREW SUPERVISOR EXAMINATION: XR FOOT LEFT 3 OR MORE [...] 3 or More Views (02/22/2024 7:29 AM CREW SUPERVISOR) Anatomical Region Laterality Modality Lower Extremities, Foot Left Computed Radiography 02/22/2024 7:41 AM CREW SUPERVISOR Impressions 02/22/2024 7:41 AM CREW SUPERVISOR Revision left total ankle arthroplasty in near-anatomic position. Healing instrumented calcaneal osteotomy. Electronically signed by: Aryan Spangler M.D. Narrative 02/22/2024 7:41 AM CREW SUPERVISOR EXAMINATION: XR FOOT LEFT 3 OR MORE [...] IMG XR PROCEDURES Chata l Result * WA APPLICATION SHORT LEG CAST BELOW KNEE-TOE, WA CAST SUP SHRT LEG FIBERGLASS (02/05/2024 8:24 AM CREW SUPERVISOR) Narrative AuroraTeresita, MS - 02/05/2024 8:24 AM CREW SUPERVISOR Teresita Simon, MS 02/21/2024 8:24 AM Ortho Casting/Splinting Documentation Date/Time: 02/05/2024 8:24 AM Performed by: Oliverio Lou Authorized by: Sae Su MD Sensation: Normal Skin Condition: Clean, dry, and intact [place]/Sutures Removed: No Pin Pulled: No Cast Removed: [...] MD IN CLINIC/BEDSIDE DINA CLINE Final Result from Last 3 Months Insurance [employer] [place] [employer] PPO [employer] OPEN ACCESS [employer] Member Subscriber Plan / Payer (Ef fective 2020-Present) Name:Neel Carly Annie Member ID:[id number] Relation to Subscriber:Self Name:Carly Shaikh Annie Subscriber ID:[id number] Payer ID:[id number] ([facility]) Group ID:[id number] Type[facility] Member Subscriber Plan / Payer (Ef fective 2002-Present) Name:Carly Shaikh Relation to Subscriber:Self Name:Carly Shaikh Payer ID:[id number] ([facility]) Group ID:[id number] Type:CIGNA HMO/PPO Address: [facility] [id number] [place] [address] [facility] PPO MEDICARE GROUP ADMINISTRAT[employer] [place] Member Subscriber Plan / Payer (Ef fective 2021-Present) Name:Carly Shaikh Annie Relation to Subscriber:Self Name:Carly Shaikh Payer ID:[id number] Group ID:[id number] Type:COMMERCIAL Address: [address] [address] [place] [address] MEDICARE GROUP ADMINISTRATORS [place] Member Subscriber Plan / Payer ( fective 2018-Present) Name:Carly Shaikh Annie Relation to Subscriber:Self Name:Carly Shaikh Payer ID:[id number] Group ID:[id number] Type:COMMERCIAL Address: [address] [address] [place] [address] Advance Directives For more information, please contact: [phone] * Full Code (Latest Code Status on [...] 5:22 PM 07/09/2019 5:25 AM Care Teams Soft Top Installer Relationship Specialty Start Date End Date Kristina Romero MD PCP - General 10/03/17 Chloe Lewis, SEAFOOD CLERK Hvac Field Service Technician Physical Therapy 10/20/17 Susan Pro, PT Physical Therapist Physical Therapy 11/06/17
--- OUTSIDE RECORDS SUMMARY | 2024-04-24 09:56 | XMS_ITS | Clinical Summary ---
Author Organization [facility] Address [address] [facility], [address] [address] Phone Care Team Providers Care Clinical Psychology Teacher Name Role Phone Kristina Romero MD Primary [...] 108.9 kg (240 lb) 04/15/2022 9:00 AM FURNACE UTILITY OPERATOR Height 180.3 cm (5' 11 ) 04/15/2022 9:00 AM FURNACE UTILITY OPERATOR Body Mass Index 33.47 04/15/2022 9:00 AM FURNACE UTILITY OPERATOR Plan of Treatment Health Maintenance Due Date [...] ID:[id number] Type:Not on file Address: [address] [address] [place] [address] Care Teams Clinical Psychology Teacher Relationship Specialty Start Date End Date Kristina Romero MD PCP - General Family Medicine 12/23/21
--- OUTSIDE RECORDS SUMMARY | 2024-04-24 09:56 | XMS_ITS | Clinical Summary ---
Author Organization [facility] Medical Office Building B Address [address] [place] [address] Care Team Providers Care Director Of Managed Care Name Role Phone Kristina Romero MD Primary Care Provider Chloe Lewis COOK BOAT Unavailable Unavailable Susan Pro PT Unavailable Unavailable [...] (09/17/2020): Added automatically from request for surgery [id number] Assessment & Plan (12/21/2021 9:08 AM OFFC SPEC): - Pt completed 1 year of treatment [...] then discuss stopping. - [facility] - Labs today for monitoring - [...] (06/11/2020): Added automatically from request for surgery [id number] Arthritis of left subtalar joint 02/07/2019 Overview (02/07/2019): Added automatically from request for surgery [id number] Encounter for preadmission testing 10/31/2017 Primary osteoarthritis of right knee 07/25/2016 Encounters Date Type Department Care Team Description 03/25/2024 7:40 AM OFFC SPEC Office Visit [facility] Orthopaedic Surgery [address] [place] [address] [address]nd [address] [place] [address] Sae Su MD Pain in left foot (Primary Dx); Left ankle pain, unspecified chronicity 03/25/2024 7:30 AM OFFC SPEC - 03/25/2024 11:59 PM OFFC SPEC Hospital Encounter [facility] Radiology at the [address] [address] Pain in left foot Discharge Disposition: Discharge to home or self care 03/25/2024 7:30 AM OFFC SPEC - 03/25/2024 11:59 PM OFFC SPEC Hospital Encounter [facility] Radiology at the [facility] [address] [place] [address] Left ankle pain, unspecified chronicity Discharge Disposition: Discharge to home or self care 02/22/2024 7:21 AM OFFC SPEC - 02/22/2024 11:59 PM OFFC SPEC Hospital Encounter [facility] Radiology at the [facility] [address] [place] [address] Left ankle pain, unspecified chronicity Discharge Disposition: Discharge to home or self care 02/22/2024 7:20 AM OFFC SPEC - 02/22/2024 11:59 PM OFFC SPEC Hospital Encounter [facility] the [facility] [address] [place] [address] Left foot pain Discharge Disposition: Discharge to home or self care 02/22/2024 7:00 AM OFFC SPEC Office Visit [facility] Orthopaedic Surgery [address] [place] [address] [address]nd [address] [place] [address] Sae Su MD Left foot pain (Primary Dx); Left ankle pain, unspecified chronicity 02/05/2024 2:10 PM OFFC SPEC Office Visit [facility] Orthopaedic Surgery [address] [place] [address] 2[address] [place] [address] Sae Su MD Left ankle pain, unspecified chronicity (Primary Dx) from Last 3 Months Immunizations Immunization Administration Dates Next Due Influenza, [...] on file Legal Sex Male 3:47 PM OFFC SPEC Gender Identity Not on file Sexual Orientation Not on file Obstetrics History Last Filed Vital Signs Vital Sign Reading Time Taken Comments Blood Pressure 136/77 01/10/2024 8:20 AM OFFC SPEC Pulse 86 01/10/2024 9:20 AM OFFC SPEC Temperature 37 C (98.6 F) 01/10/2024 8:20 AM OFFC SPEC Respiratory Rate 18 01/10/2024 8:20 AM OFFC SPEC Oxygen Saturation 91% 01/10/2024 8:20 AM OFFC SPEC Inhaled Oxygen Concentration - - Weight 108.9 kg (240 lb) 01/10/2024 8:20 AM OFFC SPEC Height 182.9 cm (6') 01/10/2024 8:20 AM OFFC SPEC Body Mass Index 32.55 01/10/2024 8:20 AM OFFC SPEC Plan of Treatment Health Maintenance Due Date [...] Plan Chronic Care Management Improving( 9:30 AM OFFC SPEC) Pau Perez, RN Note: Problem: Chronic Pain Goals: 1. Minimize further functional decline 2. Maximize quality of life 3. Control pain Strategies: - Activity/exercise program recommendation - Conservative stepwise pain medicine strategy with multi-disciplinary approach - Recommend healthy lifestyle strategies and compensatory methods as needed Medical Devices Implanted Type Area Cancellation Clerk Device Identifier Shelf Expiration Date Model / Serial / Lot Orthohelix Maxtorque 7mm 47.5mm Cannulated Self Drill Foot Ankle Petite [id number]-[id number] - [id number] Implanted:Qty: 1 on 01/09/2024 by Sae Su MD at [facility] Screw Left: Ankle Orthohelix MSD-010-70- 475P / / Orthohelix Screw Bone Maxtorque Short Thread L47.5 Mm Od5.5 Mm Foot Ankle Self Drill Cannulated Nonsterile Zsi-[id number] - [id number] Implanted:Qty: 1 on 01/09/2024 by Sae Su MD at [facility] Screw Left: Ankle Orthohelix MSD-010-55- [id number] / / Depuy Orthopaed[employer] Inc [id number] Smartset High Viscosity Cement 40gm Bone Gentamicin - [id number] Implanted:Qty: 1 on 10/30/2017 by Andre Rivera MD at [facility] Right: Knee [employer] Orth[employer]ed[employer] Inc 11/12/2018 [id number] / / [id number] Depuy Orth[employer]ed[employer] Inc [id number] Smartset High Viscosity Cement 40gm Bone Gentamicin - [id number] Implanted:Qty: 1 on 10/30/2017 by Andre Rivera MD at [facility] Right: Knee [employer] 11/12/2018 [id number] / / [id number] Depuy Orth[employer] Inc [id number] Attune Cemented Posterior Stabilize Knee Right 6 Narrow Component - [id number] Implanted:Qty: 1 on 10/30/2017 by Andre Rivera MD at [facility] Right: Knee [employer] Orth[employer] Inc 06/13/2027 [id number] / / [id number] Depuy Orthopaedics Inc [id number] Attune S+ Cement Fix Bearing Knee 6 Baseplate Tibial - [id number] Implanted:Qty: 1 on 10/30/2017 by Andre Rivera MD at [facility] Right: Knee [employer] 04/13/2027 [id number] / / [id number] Depuy Orth[employer] Inc [id number] Attune 8mm Posterior Stabilize Fix Bearing Knee 6 Insert Tibial - [id number] Implanted:Qty: 1 on 10/30/2017 by Andre Rivera MD at [facility] Right: Knee [employer] 05/13/2022 [id number] / / [id number] Rankin [employer] Inc 876p-0400 Mini Ignite Power Mix Injectable Graft 4ml Synthetic Tissue - [id number] - [id number] Implanted:Qty: 1 on 07/09/2019 by Sae Su MD at [facility] Left: Ankle [employer] 06/02/2023 [id number] / [id number] / [employer] [id number] Infinity Ankle 4 Long Tray Tibial Adaptis - [id number] Implanted:Qty: 1 on 07/01/2020 by Sae Su MD at [facility] Left: Ankle [employer] [id number] 11/26/2026 [id number] / / [id number] [employer] Inc [id number] Taldome Infinity Adaptis Flatcut Sz3 - [id number] Implanted:Qty: 1 on 07/01/2020 by Sae Su MD at [facility] Left: Ankle [employer] [id number] 05/21/2028 [id number] / / [id number] [employer] Inc [id number] Inbone 9mm Ankle 3+ Implant Fixation Everlast - [id number] Implanted:Qty: 1 on 07/01/2020 by Sae Su MD at [facility] Left: Ankle Well[employer] Inc [id number] 05/28/2027 [id number] / / [id number] Allosource [id number] 23mm Wedge Frozen Spine Graft Bone Tricortical Ilium - [id number] Implanted:Qty: 1 on 07/01/2020 by Sae Su MD at [facility] Left: Foot Allosource 01/27/2025 [id number] / / [id number] [employer] 1620-509ns Steinmann 5/64in 9in Trocar Point One End Pin Fixation Stainless - [id number] Implanted:Qty: 1 on 07/01/2020 by Sae Su MD at [facility] Left: Foot [employer] [id number] / / Axogen Inc Avance 1-2mm 70mm Allograft Graft Nerve Sterile 202004 - S0 - [id number] Implanted:Qty: 1 on 04/04/2023 by Mani Oseguera MD at [facility] Left: Ankle [employer]ogen Inc 07/13/2025 [id number] / 0 / [id number] Well[employer] Inc Inbone 11mm Ankle 3+ Implant Fixation Everlast [id number] - [id number] Implanted:Qty: 1 on 01/09/2024 by Sae Su MD at [facility] Left: Ankle [employer] 11/09/2029 [id number] / / [id number] Explanted Type Area Cancellation Clerk Device Identifier Shelf Expiration Date Model / Serial / Lot [employer] 1624-509ns Steinmann 3/32mm 9in Trocar Point Pin Fixation Stainless Steel - [id number] Explanted:Qty: 1 on 07/09/2019 at [facility] Left: Ankle [employer] [id number] / / [employer] Inc [id number] K-Wire 1.4mm 228mm Wire Fixation - [id number] Explanted:Qty: 4 on 07/01/2020 at [facility] Left: Ankle [employer] Inc [id number] / / [employer] 1600-9455ns Jesus .45in 9in 1 Trocar Point Orthopedic Wire Fixation - [id number] Explanted:Qty: 1 on 07/01/2020 at [facility] Left: Foot [employer] [id number] S / / Orthohelix [id number]-[id number] Maxtorque 7mm 75mm Cannulated Self Drill Foot Ankle Petite Thread - [id number] Implanted:Qty: 1 on 07/09/2019 by Sae Su MD at [facility] Explanted:Qty: 1 on 07/01/2020 at [facility] Left: Ankle Orthohelix MSD-010-70 -075P / / Orthohelix [id number] Maxtorque 7mm 80mm Cannulated Self Drill Short Thread Screw Bone - [id number] Implanted:Qty: 1 on 07/09/2019 by Sae Su MD at [facility] Explanted:Qty: 1 on 07/01/2020 at [facility] Left: Ankle Orthohelix MSD-010-70 -[id number] / / Procedures Procedure Name Priority Date/Time Associated Diagnosis Comments XR ANKLE LEFT 3 OR MORE VIEWS Schedule Routine, Read Routine (OP Routine) 03/25/2024 7:39 AM OFFC SPEC Left ankle pain, unspecified chronicity XR FOOT LEFT 3 OR MORE VIEWS Schedule Routine, Read Routine (OP Routine) 03/25/2024 7:39 AM OFFC SPEC Pain in left foot ORTHO CASTING/SPLINTING Routine 02/22/2024 8:31 AM OFFC SPEC Left foot pain XR ANKLE LEFT 3 OR MORE VIEWS Schedule Routine, Read Routine (OP Routine) 02/22/2024 7:30 AM OFFC SPEC Left ankle pain, unspecified chronicity XR FOOT LEFT 3 OR MORE VIEWS Schedule Routine, Read Routine (OP Routine) 02/22/2024 7:29 AM OFFC SPEC Left foot pain MA CAST SUP SHRT LEG FIBERGLASS Routine 02/05/2024 8:24 AM OFFC SPEC Left ankle pain, unspecified chronicity MA APPLICATION SHORT LEG CAST BELOW KNEE-TOE Routine 02/05/2024 8:24 AM OFFC SPEC Left ankle pain, unspecified chronicity from Last 3 Months Results * XR Ankle Left 3+ View (03/25/2024 7:39 AM OFFC SPEC) Anatomical Region Laterality Modality Lower Extremities, Ankle Left Compute d Radiography 03/25/2024 8:54 AM OFFC SPEC Impressions 03/25/2024 8:54 AM OFFC SPEC 1. Unchanged revised left total ankle arthroplasty in near anatomic position with healing, instrumented medial displacement calcaneal calcaneal osteotomy. 2. Unchanged healed, solidly fused subtalar arthrodesis 3. Pes planovalgus The radiology attending physician has personally reviewed this study, and had reviewed and/or edited this written report and agrees with it. Electronically signed by: Figueroa Porras MD, PHD Narrative 03/25/2024 8:54 AM OFFC SPEC EXAMINATION: XR FOOT LEFT 3 OR MORE [...] Electronically signed by: Figueroa Porras MD, PHD Sae Su MD IMG XR PROCEDURES Chata l Result * XR Foot Left 3+ View (03/25/2024 7:39 AM OFFC SPEC) Anatomical Region Laterality Modality Lower Extremities, Foot Left Computed Radiography 03/25/2024 8:54 AM OFFC SPEC Impressions 03/25/2024 8:54 AM OFFC SPEC 1. Unchanged revised left total ankle arthroplasty in near anatomic position with healing, instrumented medial displacement calcaneal calcaneal osteotomy. 2. Unchanged healed, solidly fused subtalar arthrodesis 3. Pes planovalgus The radiology attending physician has personally reviewed this study, and had reviewed and/or edited this written report and agrees with it. Electronically signed by: Figueroa Porras MD, PHD Narrative 03/25/2024 8:54 AM OFFC SPEC EXAMINATION: XR FOOT LEFT 3 OR MORE [...] * Ortho Casting/Splinting Documentation (02/22/2024 8:31 AM OFFC SPEC) Narrative Sae Su MD - 02/22/2024 8:31 AM OFFC SPEC Teresita Simon MS 02/22/2024 8:31 AM Ortho Casting/Splinting Documentation Date/Time: 02/22/2024 8:31 AM Performed by: Teresita Simon MS Authorized by: Sae Su MD Sensation: Normal Skin Condition: Clean, dry, and intact [place]/Sutures Removed: No Pin Pulled: No Cast Removed: Yes (Removed by Charan Pedersen) Cast Applied: No (Patient went into their own boot.) Overwrap: No Location: Ankle Ankle: L ankle Supplies: Cast removal only Capillary Refill: Normal Patient tolerance of procedure: Tolerated well, no immediate complications us Sae Su MD IN CLINIC/BEDSIDE DINA FOOTEYANELIS Edited Result - Final * XR Ankle Left 3 or More Views (02/22/2024 7:30 AM OFFC SPEC) Anatomical Region Laterality Modality Lower Extremities, Ankle Left Compute d Radiography 02/22/2024 7:41 AM OFFC SPEC Impressions 02/22/2024 7:41 AM OFFC SPEC Revision left total ankle arthroplasty in near-anatomic position. Healing instrumented calcaneal osteotomy. Electronically signed by: Aryan Spangler M.D. Narrative 02/22/2024 7:41 AM OFFC SPEC EXAMINATION: XR FOOT LEFT 3 OR MORE [...] by: Aryan Spangler M.D. Sae Su MD IM XR PROCEDURES Chata l Result * XR Foot Left 3 or More Views (02/22/2024 7:29 AM OFFC SPEC) Anatomical Region Laterality Modality Lower Extremities, Foot Left Computed Radiography 02/22/2024 7:41 AM OFFC SPEC Impressions 02/22/2024 7:41 AM OFFC SPEC Revision left total ankle arthroplasty in near-anatomic position. Healing instrumented calcaneal osteotomy. Electronically signed by: Aryan Spangler M.D. Narrative 02/22/2024 7:41 AM OFFC SPEC EXAMINATION: XR FOOT LEFT 3 OR MORE [...] IMG XR PROCEDURES Chata l Result * MA APPLICATION SHORT LEG CAST BELOW KNEE-TOE, MA CAST SUP SHRT LEG FIBERGLASS (02/05/2024 8:24 AM OFFC SPEC) Narrative Teresita Simon, MS - 02/05/2024 8:24 AM OFFC SPEC AuroraTeresita, MS 02/21/2024 8:24 AM Ortho Casting/Splinting Documentation Date/Time: 02/05/2024 8:24 AM Performed by: Oliverio Lou Authorized by: Sae Su MD Sensation: Normal Skin Condition: Clean, dry, and intact [place]/Sutures Removed: No Pin Pulled: No Cast Removed: [...] Final Result from Last 3 Months Insurance [employer] Member Subscriber Plan / Payer (Ef fective 2017-Present) Name:aCrly Shaikh Relation to Subscriber:Self Name:CARLY SHAIKH Payer ID:[id number] (NAIC) Type:I [employer] HMO/PPO Address: [place] [id number] GROUP ADMINISTRATORS OR [facility] PPO [employer] OPEN ACCESS [facility] Member Subscriber Plan / Payer (Ef fective 2020-Present) Name:Carly Shaikh Member ID:[id number] Relation to Subscriber:Self Name:Neel Carly Annie Subscriber ID:[id number] Payer ID:[id number] (NAIC) Group ID:[id number] Type:COMMERCIAL [facility] Member Subscriber Plan / Payer (Ef fective 2002-Present) Name:Carly Shaikh Relation to Subscriber:Self Name:Carly Shaikh Payer ID:[id number] (NAIC) Group ID:[id number] Type:CIGNA HMO/PPO Address: [address] [place] [address] [facility] GROUP [facility] Member Subscriber Plan / Payer (Ef fective 2021-Present) Name:Carly Shaikh Relation to Subscriber:Self Name:Carly Shaikh Payer ID:[id number] Group ID:[id number] Type:COMMERCIAL Address: [address] [address] [place] [address] MEDICARE [employer] [place] Member Subscriber Plan / Payer (Ef fective 2018-Present) Name:Carly Shaikh Relation to Subscriber:Self Name:Carly Shaikh Payer ID:[id number] Group ID:[id number] Type:COMMERCIAL Address: [address] [address] [place] [address] Advance Directives For more information, please contact: [phone] * Full Code (Latest Code Status on [...] 5:22 PM 07/09/2019 5:25 AM Care Teams Director Of Managed Care Relationship Specialty Start Date End Date Kristina Romero MD PCP - General 10/03/17 Chloe Lewis, COOK BOAT Digester Operator Helper Physical Therapy 10/20/17 Susan Pro PT Physical Therapist Physical Therapy 11/06/17
--- OUTSIDE RECORDS SUMMARY | 2024-04-24 09:56 | XMS_ITS | Encounter Summary ---
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
--- OUTSIDE RECORDS SUMMARY | 2024-04-24 09:56 | XMS_ITS | Encounter Summary ---
Author Organization [facility] Healthcare Address [address] [place] [address] Care Team Providers Care Rental Car Porter Name Role Phone Kristina Romero MD Primary Care Provider Chloe Lewis PTA Unavailable Unavailable Susan Pro PT Unavailable Unavailable Encounter Details Date Type Department Care Team (Late st Contact Info) Description 10/20/2020 Telephone [facility] [place] [facility] [address] [facility] [address] [place] [address] Shandra Smith MD PhD [address] [facility] [phone] [place], [place] [id number] Social History Tobacco Use Types Packs/Day Years [...] on file 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
--- OUTSIDE RECORDS SUMMARY | 2024-04-24 09:56 | XMS_ITS | Continuity of Care Document ---
Author Organization [facility] Address [address] [facility] [address] [place] [address] Phone Care Team Providers Care Drop Wire Aliner Name Role Phone Administrative, Provider Unavailable Unavail [...] Date Provider Providers Copied on Encounter [facility], [address], [id number], [place] tel:[phone] [facility] No Information 8 Administrative Provider. [address] [facility], [place], [place], [id number], [place]. tel:[phone] [facility], [address] [place] [address], [id number], [place] tel:[phone] [facility] No Information 8 Blank Ramos. [address] [facility], [address], [place], [place], [id number], [place]. tel:[phone] Independent Medical Examination [facility], [address], [id number], tel:[phone] [facility] right shoulder (chief complaint) Pain in right shoulder 8 Blank Ramos. [address] [facility] [facility] [address], [place], [place], [id number], [place]. tel:[phone] Independent Medical Examination GAB[facility]EL [facility], [address] [facility] [address], [place], [id number], tel:[phone] [facility] right shoulder (chief complaint) Pain in right shoulder 7 Blank Ramos. [address] [facility] [place] [address], [place], [place], [id number], [place]. tel:[phone] Family History Family Member Type Diagnosis Age At Onset Problem (finding) Family history of gout Problem (finding) Family history of Diabe gary mellitus Problem (finding) Family history of Arthr itis Problem (finding) Family history of Cance r, unknown Payers Payer name Insurance type Covered green party ID Authoriza tion(s) No Information Social [...]
--- NOTE | 2024-05-22 19:19 | WPDSLEEPSTUD ---
Sleep Study Date of Study: 04/24/24 Ordering Provider: Maricel Mcgill NP Interpreting Physician: Irma Viveros MD Sleep Study Type: CPAP Titration Height: 1.83 m Weight: 111.13 kg Body Mass Index: 33.2 Neck Circumference (inches): 17 Fifield: 18 Reason for Sleep Study * 03/05/2024 Home sleep test using WatchPat; AHI of 16.4 with desaturation down to 81%. Central apnea index elevated at 6.1. He returns for CPAP titration Sleep History Stephen Shaikh is a 58-year-old male who had a home sleep test on March 05, 2024 for evaluation of excessive daytime sleepiness and loud snoring with difficulty maintaining sleep. This showed presence of mederate obstructive sleep apnea. The AHI was 16.4 with a central apnea index of 6.1 and desaturation to 81%. The remainder of this questionnaire is from his February study. The patient admits to snoring loudly, excessive daytime sleepiness and trouble maintaining sleep. He denies interruptions in breathing while asleep. He denies choking or gasping at night. He denies having trouble breathing on his back. He does have morning headaches. He does have a dry or sore mouth / throat the morning. He denies nocturnal heartburn. He urinates twice throughout the night. He denies having trouble falling asleep. He does have difficulty falling back asleep if he wakes up throughout the night. He denies any hypnotic or sedative use. He denies feeling anxious about sleep. He does feel tired or sleepy during the day. He does feel tired in the morning. He does have the urge to fall asleep during the day. He does feel drowsy while driving. He denies sleep paralysis, cataplexy and hypnagogic/ hypnopompic hallucinations. He does clench or grind his teeth. He denies kicking or jerking his legs excessively. He does have a restless feeling in his legs that does cause an urge to move his legs. The restless feeling does not get worse with rest and it does not get better with activity. The restless feeling in his legs is worse in the evening or at night. It does not cause a disturbance in sleep. He goes to bed at 10:00 p.m. on both work days and his days off. It takes him 15 minutes to fall asleep. He gets 4 hours of sleep per night. His sleep is not restorative on his days off. He denies taking any planned naps. He denies dream enactment behavior. He denies sleep walking. He consumes 3-4 cups of caffeinated beverage per day. He denies tobacco use. He consumes 1 alcoholic beverage 1-2 nights per week. He denies exercising on a regular basis. REPLACED BY [facility] Past Medical History Medical History Septic arthritis of knee, left (~08/2020) Septic arthritis of left ankle (~05/2021) Unspecified osteoarthritis, unspecified site Idiopathic gout Surgical History Surgical History H/O foot surgery History of left knee surgery (~08/2020) for septic arthritis of left knee History of left ankle joint replacement (~06/2020) 06/2020 and 12/2023 History of arthrodesis (~07/2019) 07/2019 - left ankle History of testicular surgery (~2012) 2012 History of hernia surgery around 1989 History of tonsillectomy and adenoidectomy during teens History of shoulder surgery (~2016) 2016 - Right shoulder History of knee surgery (~10/2017) 10/2017 - right knee Family History Family History Father Diabetes mellitus Mother Breast cancer Colon cancer Social History Social History Smoking packs per day: 1 Smoking cigarettes per day: 20.0 Years smoked: 29 Smoking pack-years: 29.00 Smoking status: Former smoker Tobacco type: cigarettes Second hand tobacco smoke exposure: No Smoking end date: 02/13/91 Additional smoking assessment comments: quit over 30 years ago Alcohol intake: current Alcohol use details: 0-1 Substance use: never Substance use type: does not use Living arrangements: with family Additional living arrangements comments: Occupation/Education: retired Gender identity (if verbalized by the patient): Male Sexual Orientation (if Verbalized by the Patient): Straight or Heterosexual Medications Home Medications ?Medication ?Instructions ?Recorded ?Confirmed ?Type allopurinol 300 mg tablet 300 mg PO DAILY #90 tabs 12/12/23 04/03/24 Rx ascorbic acid (vitamin C) 1,000 mg 1 g PO DAILY 03/07/24 04/03/24 History tablet (Vitamin C) tramadol 50 mg tablet 50 mg PO Q6H PRN pain #12 tabs 03/28/24 04/03/24 Rx eszopiclone 2 mg tablet (Lunesta) 2 mg PO QHS #1 tablet 03/29/24 04/03/24 Rx tamsulosin 0.4 mg capsule (Flomax) 0.4 mg PO DAILY #90 caps 04/03/24 04/03/24 Rx Sleep Procedure A full CPAP polysomnogram using the [employer] multi-channel system recorded the standard physiologic parameters including EEG, EOG, submentalis EMG, anterior tibialis EMG, EKG, body position, nasal and oral airflow using nasal pressure sensor and thermistor. Respiratory parameters of chest and abdominal movements were recorded with Respiratory Inductance Plethysmography belts. Oxygen saturation was recorded by pulse oximetry. Video monitoring was also performed. Sleep stages, periodic limb movements, and EEG arousals were scored in 30 second epochs according to the criteria of the AASM Scoring Manual. The Apnea-Hypopnea Index was calculated using CMS guidelines for definition of hypopnea while scoring respiratory events. He did not take a sleep aid at the beginning of the study The patient was started on CPAP using a medium Resmed Airfit F20 FFM and and heated humidity, initial pressure was CPAP 5 cm titrated in increments of 2 cm up to a maximum of CPAP 13 cm. At CPAP 13, patient spent 112 minutes med, 45.5 minutes awake, 52.5 minute in non-REM and 13.5 minutes in REM. Sleep efficiency was 58.9%, the residual apnea-hypopnea index was 2.7 and the average saturation was 95%. The patient had periods of wake throughout the night. Without a sleep aid at the start of the study, and several long episodes of wake, I anticipate that he will be able to tolerate CPAP 13 when he acclimate to it. He should be advised not to take naps as he starts using CPAP. Taking naps will decrease his sleep drive, and may worsen fragmented sleep at night. Sleep Architecture The total recording time was 386.0 minutes. The total sleep time was 258.5 minutes. Sleep latency was 4.9 minutes. REM latency was 51.0 minutes. Sleep efficiency was 67.0%. The patient had 39 awakenings for an awakening index of 9.1. Wake after Sleep Onset time was 122.5 minutes. The patient spent 19.5 minutes, 7.5% of total sleep time in Stage N1. The patient spent 195.5 minutes, 75.6% in Stage N2. The patient spent no time in Stage N3. The patient spent 43.5 minutes, 16.8% in Stage REM. Respiratory Analysis The patient had 32 hypopneas, 3 obstructive apneas, no mixed apneas, and 2 central apneas for an overall Apnea Hypopnea Index of 8.6 events per hour. The REM Apnea Hypopnea Index was 20.7. The NREM Apnea Hypopnea Index was 6.1. The patient had a Central Apnea Hypopnea Index of 0.5. There were no Respiratory Effort Related Arousals. The Respiratory Disturbance Index is 13.0 events per hour. There was no evidence of Milton-Oconnell Respirations. Arousals There were 113 total arousals for an arousal index of 26.2. There were 34 spontaneous arousals for an index of 7.9. There were 9 arousals due to respiratory events for an index of 2.1. There were 65 arousals due to periodic limb movements for an index of 15.1. There were 9 arousals due to isolated limb movements for an index of 2.1. Periodic Limb Movements The patient had 23 isolated limb movements with an index of 5.3. The patient had 434 periodic limb movements with index of 100.7. Patient had a total of 457 limb movements with a total limb movement index of 106.1. Oximetry Data The patient had an average oxygen saturation of 93.2% in sleep with a minimum oxygen saturation of 84% and a maximum oxygen saturation of 98%. The patient had 36 oxygen desaturations that were 4% or greater resulting in an Oxygen Desaturation Index of 8.4. The patient spent 3.5 minutes, 0.9% of total sleep time with an oxygen saturation below 88%. Snoring Profile Snoring was eliminated during the titration. Cardiac Profile The EKG showed normal sinus rhythm. The patient had an average pulse rate of 59.4 bpm with a minimum pulse rate of 49 bpm and a maximum pulse rate of 81 bpm. No arrhythmias noted. EEG Profile EEG was unremarkable, no evidence of seizures. Assessment and Plan Assessment and Plan (1) GILBERTO (obstructive sleep apnea): Code(s): G47.33 - Obstructive sleep apnea (adult) (pediatric) Status: Acute Assessment and Plan: This CPAP titration on 04/24/2024 shows an optimal pressure of CPAP 13 cm. At CPAP 13, patient spent 112 minutes in bed, 45.5 minutes awake, 52.5 minutes in non-REM and 13.5 minutes in REM. Sleep efficiency was 58.9%, the residual apnea-hypopnea index was 2.7 and the average saturation was 95%. The patient had periods of wake throughout the night. Without a sleep aid at the start of the study, and several long episodes of wake, I anticipate that he will be able to tolerate CPAP 13 when he acclimate to it. He should be advised not to take naps as he starts using CPAP. Taking naps will decrease his sleep drive, and may worsen fragmented sleep at night. He did not have any appreciable central apneas during this study. The central apneas were present on the home sleep test were not noted during this test. There was no evidence of Milton-Oconnell respiration on the study. The patient should be prescribed this ResMed equipment as well as tubing, filters and reservoir. This should be used with all episodes of sleep. Compliance should be reviewed within 31-90 days of starting therapy for usage greater than 4 hours per night greater than 70% of the nights. The patient should be asked about symptoms such as excessive daytime sleepiness, quality of sleep, decreased nocturia, increased mental functioning such as memory, mood, and concentration. BMI is 33. Weight management is advised. Clinical data suggests that weight loss of 10% can reduce the severity of respiratory events and snoring and improve AHI by as much as 25%. (2) Restless legs syndrome (RLS): Code(s): G25.81 - Restless legs syndrome Status: Acute Assessment and Plan: His sleep questionnaire indicates that he does have frequent feelings of restlessness in his legs. This sensation is worse in the evenings compared to earlier in the day. He is not aware of this disturbing his sleep. On the baseline portion, he had an elevated periodic limb movement arousal index of 15.1. During the titration, he had intense increase in his leg movements which may have been due to PAP therapy. His periodic limb movement index was 100. Ferritin level is indicated to exclude iron deficiency anemia as a contributing factor. Ferritin should be 75 ng/mL or greater. If ferritin is below this, iron supplementation should be given to achieve ferritin of 75 ng/mL. There are nonpharmacologic methods to treat limb movements including daily exercise, stretching calf muscles before bed, avoiding excessive amounts of caffeine and alcohol, vitamin B supplementation, magnesium lotion massaged into legs before bed, and use of a weighted blanket. Pharmacologic therapy is very effective for restless legs syndrome and limb movements during sleep and may include [id number] voltage-gated calcium channel ligands such as gabapentin which is preferable to dopaminergic agents which can have augmentation. Data The data obtained during this sleep study is adequate for interpretation. Certification This sleep study has been reviewed by a board certified sleep medicine physician.
[2024-05-22 19:34] VITALS: BMI 33.2
== END 2024-04-25 05:44 | disposition home or self-care (01) ==
PROVIDERS: PCP Nurse Practitioner Family; Visit Provider Nurse Practitioner Family
DX: G47.33 Obstructive sleep apnea (adult) (pediatric) (principal); G25.81 Restless legs syndrome
CPT/HCPCS: 95811

== ENCOUNTER 2024-09-24 13:27 | Outpatient (CLI) | payer MEDICARE, SELFPAY ==
--- OUTSIDE RECORDS SUMMARY | 2024-09-24 13:45 | XMS_ITS | Encounter Summary ---
Author Organization [facility] Healthcare Address [address] [place] [address] Care Team Providers Care Order Fulfillment Specialist Name Role Phone Kristina Romero MD Primary Care Provider Chloe Lewis STATION REPAIRER Unavailable Unavailable Susan Pro PT Unavailable Unavailable Oral Painter OT Unavailable Unavailable Andre Rivera MD Unavailable [phone] Encounter Details Date Type Department Care Team (Late st Contact Info) Description 10/20/2020 Telephone [facility] [address] [facility] [address] [place], [place] [id number] Shandra Smith MD PhD [address] [facility] [id number] [place], [place] [id number] Social History Tobacco Use Types Packs/Day Years Used Date Smoking Tobacco: Former Cigarettes 0.5 6 1 4 - 1989 Smokeless Tobacco: Never Alcohol Use [...] on file 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 Gender Identity Not on file Sexual Orientation Not on file documented as of this encounter Plan of Treatment Not on file documented as of this encounter Visit Diagnoses Not on filedocumented in this encounter Care Teams Order Fulfillment Specialist Relationship Specialty Start Date End Date Kristina Romero MD PCP - General 10/03/17 Chloe Lewis, STATION REPAIRER [employer]pooler Physical Therapy 10/20/17 Susan Pro, PT Physical Therapist Physical Therapy 11/06/17 Oral Painter, OT Occupational Therapist Occupational Therapy 06/27/24 Andre Rivera MD [address] [place] [address] DR HUNTER [address] [place] [id number] Surgeon Orthopedic Surgery 07/01/24 documented as of this encounter
--- OUTSIDE RECORDS SUMMARY | 2024-09-24 13:45 | XMS_ITS | Encounter Summary ---
Author Organization [facility] Address [address] [place] [address] Phone Care Team Providers Care Claims Clerk Name Role Phone Kristina Romero MD Primary Care Provider Chloe Lewis CHIEF DEPUTY SHERIFF Unavailable Unavailable Susan Pro PT Unavailable Unavailable Oral Painter OT Unavailable Unavailable Andre Rivera MD Unavailable [phone] Encounter Details Date Type Department Care Team (Late st Contact Info) Description 12/28/2022 Orders Only [facility] [phone] Scanning, Provider Social History Tobacco Use Types [...] on file 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 Author CCM Chronic Pain Care Plan Chronic Care Management Improving( 9:30 AM SIZING END BANDER) Pau Perez, RN Note: Problem: Chronic Pain [...] on filedocumented in this encounter Care Teams Claims Clerk Relationship Specialty Start Date End Date Kristina Romero MD PCP - General 10/03/17 Chloe Lewis, CHIEF DEPUTY SHERIFF Manufacturing Lab Technician Physical Therapy 10/20/17 Susan Pro, PT Physical Therapist Physical Therapy 11/06/17 Oral Painter, OT Occupational Therapist Occupational Therapy 06/27/24 Andre Rivera MD [address] [place] [address] [place] [address] Surgeon Orthopedic Surgery 07/01/24 documented as of this encounter
--- OUTSIDE RECORDS SUMMARY | 2024-09-24 13:45 | XMS_ITS | Clinical Summary ---
Author Organization [facility] Address [address] [facility], [address] [address] Phone Care Team Providers Care Accreditation Specialist Name Role Phone Kristina Romero MD [...] 108.9 kg (240 lb) 04/15/2022 9:00 AM BUSINESS ANALYSIS CONSULTANT Height 180.3 cm (5' 11) 04/15/2022 9:00 AM BUSINESS ANALYSIS CONSULTANT Body Mass Index 33.47 04/15/2022 9:00 AM BUSINESS ANALYSIS CONSULTANT Plan of Treatment Health Maintenance Due Date Last Done Comments Hepatitis C Virus (HCV) Screening 1965 Cologuard 07/16/2008 Immunochemical Fecal Occult Blood 07/16/2008 Pneumococcal Immunization (50+ years) (1 of 1 - PCV) 07/16/2013 Zoster Immunization (1 of 2) 07/16/2013 SARS-COV-2 Immunization ( season) 2023 11/27/2021, 09/10/2021, 12/09/2020, Additional history exists Influenza Immunization (#1) 10/14/202411/13, 11/14/2020, 11/23/2019, Additional history exists Colonoscopy 05/05/2027 05/04/2022 Colorectal Cancer Screening 05/05/2027 Respiratory Syncytial Virus (RSV) Immunization (Adult) (1 - 1-dose 75+ series) 07/16/2038 DTaP/Tdap/Td Immunization Discontinued 09/21/2021 TdaP Immunization Completed 09/21/2021 Hepatitis B Immunization Aged Out No longer eligible based on patient's age to complete this topic Human Papillomavirus (HPV) Immunization Aged Out No longer eligible based [...] ID:PAPER Group ID:[id number] Type:Not on file Address: [address] [address] [place] [address] Care Teams Accreditation Specialist Relationship Specialty Start Date End Date Kristina Romero MD PCP - General Family Medicine 12/23/21
--- OUTSIDE RECORDS SUMMARY | 2024-09-24 13:45 | XMS_ITS | Clinical Summary ---
Author Organization [facility] Medical Office Building [address] Address [address] [place] [address] Care Team Providers Care Firing Pin Gauger Name Role Phone Kristina Romero MD Primary Care Provider Chloe Lewis PTA Unavailable Unavailable Susan Pro PT Unavailable Unavailable Oral Painter OT Unavailable Unavailable Andre Rivera MD Unavailable [phone] Allergies No known active allergies Medications allopurinoL (ZYLOPRIM) 300 mg tablet Take 1 tablet (300 mg total) by mouth daily 4 Active tamsulosin (FLOMAX) 0.4 mg extended release capsule Take 1 capsule (0.4 mg total) by mouth daily 5 Active aspirin 81 mg enteric coated tablet Take 1 tablet (81 mg total) by mouth 2 (two) times a day 84 tablet 5 Active celecoxib (CeleBREX) 200 mg capsuleIndicati ons:Postoperati ve Acute Pain Take 1 capsule (200 mg total) by mouth 2 (two) times a day 84 capsule 5 Active oxyCODONE-aceta minophen (PERCOCET) 5-325 mg per tabletIndicatio ns:Pain Take 1-2 tablets by mouth every 4 (four) hours as needed for pain 40 tablet 5 Active Additional Information Patient not taking.Reported on 09/04/2024 senna-docusate (PERICOLACE) 8.6-50 mg Take 1 tablet by mouth 2 (two) times a day as needed for constipation 60 tablet 2 5 Active ondansetron (ZOFRAN) 8 mg tabletIndicatio ns:Prevention of Post-Operative Nausea and Vomiting Take 1 tablet (8 mg total) by mouth every 8 (eight) hours as needed for nausea or vomiting 20 tablet 2 5 Active Narcan 4 mg/actuation spray,non-aeros ol 0 5 Active Active Problems Problem Noted Date Diagnosed Date Aftercare following left knee joint replacement surgery 07/22/2024 Status post left ankle joint replacement 024 [...] of the knee. Per op note, cloudy fluid. New cx NGTD, no crystals. Blood cx [...] (09/17/2020): Added automatically from request for surgery [id number] Assessment & Plan (12/21/2021 9:08 AM FOOD CONCESSION MANAGER): - Pt completed 1 year of treatment [...] then discuss stopping. - Refill sent to [facility] - Labs today for monitoring [...] ID clinic with any questions or concerns. 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 Overview (02/07/2019): Added automatically from request for surgery [id number] Encounter for preadmission testing 10/31/2017 Primary osteoarthritis of right knee 07/25/2016 Resolved Problems Problem Noted Date Diagnosed Date Resolved Date Acute pain of left knee 07/21/2020 06/0 10/2024 Primary osteoarthritis of left knee 07/21/2020 07/22/2024 Effusion of left knee 07/21/20202024 Encounters Date Type Department Care Team Description 09/04/2024 8:00 AM CDT Office Visit [facility] Orthopedics and Sports Medicine [address] [place] [address] [address] [place] [address] Chris Lewis NP Aftercare following left knee joint replacement surgery (Primary Dx) 09/04/2024 7:39 AM CDT - 09/04/2024 11:59 PM CDT Hospital Encounter [facility] Orthopedics and Sports Medicine [address] [place] [address] [address] [place] [phone] Discharge Disposition: Discharge to home or self care 07/23/2024 11:45 AM CDT Telemedicine [facility] Medicine [address] [place] [address] [address] [phone] Yajaira Roblero PA Aftercare following left knee joint replacement surgery (Primary Dx) 07/10/2024 9:14 AM CDT - 07/10/2024 11:59 PM CDT Hospital Encounter [facility] [address] [place] [id number] Left ankle pain, unspecified chronicity Discharge Disposition: Discharge to home or self care 07/10/2024 9:14 AM CDT - 07/10/2024 11:59 PM CDT Hospital Encounter [facility] [address] [place] [address] Pain in left foot Discharge Disposition: Discharge to home or self care 07/10/2024 9:10 AM CDT Office Visit [facility] Orthopaedic Surgery [address] [place] [address] 2nd Floor [address] [place] [phone] Sae Su MD Pain in left foot (Primary Dx); Left ankle pain, unspecified chronicity 07/04/2024 Telephone [facility]ics [facility] Sports Medicine [address] [place] [address] [address] [place] [address] Andre Rivera MD ondansetron prior auth 07/01/2024 9:10 AM CDT - 07/01/2024 11:40 AM CDT Surgery [facility] Operating Room [address] [place] [address] Andre Rivera MD Left Total Knee Arthroplasty 07/01/2024 8:44 AM CDT Anesthesia Event [facility] Operating Room [address] [place] [address] Jake Gupta, DO Trent, Reyes Judge MD 07/01/2024 6:50 AM CDT - 07/01/2024 3:08 PM CDT Hospital Encounter [facility] Operating Room [address] [place] [address] Andre Rivera MD Primary osteoarthritis of left knee (Primary Dx) Discharge Disposition: Discharge to home or self care from Last 3 Months Immunizations Immunization Administration [...] 1 984 - 1989 Smokeless Tobacco: Never Tobacco Cessation:Counseling Given: Not Answered Alcohol Use Standard Drinks/Week Comments Yes 0 (1 standard drink = 0.6 oz pur e alcohol) rare AUDIT-C Answer Date Recorded Q1: How often do you have a drink containing alcohol? Never 09/04/2024 Q2: How many drinks containi ng alcohol do you have on a typical day when you are drinking? Patient does not drink Q3: How often do you have si x or more drinks on one occasion? Never 09/04/2024 PHQ-2 Answer Date Recorded PHQ-2 Total Score (If total score is 3 or more points, staff should administer the PHQ-9) 0 07/01/2020 Personal Safety Answer Date Recorded Have you ever been in or are you currently in a harmful physical or emotional relationship or is someone making you feel afraid or unsafe? Denies 07/01/2024 Sex and Gender Information Value Date Recorded Sex Assigned at Not on file Legal Sex Male 3:47 PM FOOD CONCESSION MANAGER Gender Identity Not on file Sexual Orientation Not on file Obstetrics History Last Filed Vital Signs Vital Sign Reading Time Taken Comments Blood Pressure 126/70 09/04/2024 8:12 AM CDT Pulse 75 09/04/2024 8:12 AM CDT Temperature 36.3 C (97.3 F) 07/01/2024 2:49 PM CDT Respiratory Rate 18 07/01/2024 2:49 PM CDT Oxygen Saturation 95% 07/01/2024 2:49 PM CDT Inhaled Oxygen Concentration - - Weight 114.3 kg (252 lb) 09/04/2024 8:12 AM CDT Height 180.3 cm (5' 11) 09/04/2024 8:12 AM CDT Body Mass Index 35.15 09/04/2024 8:12 AM CDT Plan of Treatment Health Maintenance Due Date Last Done Comments Colon Cancer Screening-Colonoscopy 1965 Hepatitis C Screening 1965 Prostate Cancer Screening-PSA 1965 DTaP/Tdap/Td Vaccine (1 - Tdap) 07/16/1974 Hepatitis B Screening 07/16/1981 Regular Well Visit/Exam 18-64 07/16/1981 Zoster Vaccine (1 of 2) 07/16/2013 Depression Screening 06/11/2021 06/11/2020, 06/12/19 21 Influenza Vaccine (#1) 2024 4, 11/23/2019, 11/18/2017, Additional history exists Pneumococcal vaccine <65 Aged Out No longer eligible based on patient's age to complete this topic Goals Goal Patient Goal Type Associated Problems Recent Progress Patient-Stated? Author CCM Chronic Pain Care Plan Chronic Care Management Improving( 9:30 AM FOOD CONCESSION MANAGER) Pau Perez, RN Note: Problem: Chronic Pain Goals: 1. Minimize further functional decline 2. Maximize quality of life 3. Control pain Strategies: - Activity/exercise program recommendation - Conservative stepwise pain medicine strategy with multi-disciplinary approach - Recommend healthy lifestyle strategies and compensatory methods as needed Medical Devices Implanted Type Area Helicopter Engineer Device Identifier Shelf Expiration Date Model / Serial / Lot Orthohelix Maxtorque 7mm 47.5mm Cannulated Self Drill Foot Ankle Petite Hco-[id number] - [id number] Implanted:Qty: 1 on 01/09/2024 by Sae Su MD at [facility] Left: Ankle Orthohelix MSD-010-70- 475P / / Orthohelix Screw Bone Maxtorque Short Thread L47.5 Mm Od5.5 Mm Foot Ankle Self Drill Cannulated Nonsterile Unz-[id number] - [id number] Implanted:Qty: 1 on 01/09/2024 by Sae Su MD at [facility] Screw Left: Ankle Orthohelix MSD-010-55- 475S / / Depuy Orthopaedics Inc [id number] Smartset High Viscosity Cement 40gm Bone Gentamicin - [id number] Implanted:Qty: 1 on 10/30/2017 by Andre Rivera MD at [facility] Right: Knee Depuy Orthopaedics Inc 11/12/2018 [id number] / / [id number] Depuy Orthopaedics Inc [id number] Smartset High Viscosity Cement 40gm Bone Gentamicin - [id number] Implanted:Qty: 1 on 10/30/2017 by Andre Rivera MD at [facility] Right: Knee Depuy Orthopaedics Inc 11/12/2018 [id number] / / [id number] Depuy Orthopaedics Inc [id number] Attune Cemented Posterior Stabilize Knee Right 6 Narrow Component - [id number] Implanted:Qty: 1 on 10/30/2017 by Andre Rivera MD at [facility] Right: Knee Depuy Orthopaedics Inc 06/13/2027 [id number] / / [id number] Depuy Orthopaedics Inc [id number] Attune S+ Cement Fix Bearing Knee 6 Baseplate Tibial - [id number] Implanted:Qty: 1 on 10/30/2017 by Andre Rivera MD at [facility] Right: Knee Depuy Orthopaedics Inc 04/13/2027 [id number] / / [id number] Depuy Orthopaedics Inc [id number] Attune 8mm Posterior Stabilize Fix Bearing Knee 6 Insert Tibial - [id number] Implanted:Qty: 1 on 10/30/2017 by Andre Rivera MD at [facility] Right: Knee Depuy Orthopaedics Inc 05/13/2022 [id number] / / [id number] [employer] Inc 876p-0400 Mini Ignite Power Mix Injectable Graft 4ml Synthetic Tissue - [id number] - [id number] Implanted:Qty: 1 on 07/09/2019 by Sae Su MD at [facility] Left: Ankle [employer] 06/02/2023 [id number] / [id number] / [employer] [id number] Infinity Ankle 4 Long Tray Tibial Adaptis - [id number] Implanted:Qty: 1 on 07/01/2020 by Sae Su MD at [facility] Left: Ankle [employer] [id number] 11/26/2026 [id number] / / [id number] [employer] [id number] Taldome Infinity Adaptis Flatcut Sz3 - [id number] Implanted:Qty: 1 on 07/01/2020 by Sae Su MD at [facility] Left: Ankle [employer] [id number] 05/21/2028 [id number] / / [id number] [employer] Inc [id number] Inbone 9mm Ankle 3+ Implant Fixation Everlast - [id number] Implanted:Qty: 1 on 07/01/2020 by Sae Su MD at [facility] Left: Ankle [employer] [id number] 05/28/2027 [id number] / / [id number] Allosource [id number] 23mm Wedge Frozen Spine Graft Bone Tricortical Ilium - [id number] Implanted:Qty: 1 on 07/01/2020 by Sae Su MD at [facility] Left: Foot Allosource 01/27/2025 [id number] / / [id number] [employer] 1620-509ns Steinmann 5/64in 9in Trocar Point One End Pin Fixation Stainless - [id number] Implanted:Qty: 1 on 07/01/2020 by Sae Su MD at [facility] Left: Foot [employer] [id number] / / Axogen Inc Avance 1-2mm 70mm Allograft Graft Nerve Sterile [id number] - S0 - [id number] Implanted:Qty: 1 on 04/04/2023 by Mani Oseguera MD at [facility] Left: Ankle Axogen Inc 07/13/2025 [id number] / 0 / [id number] Nanophthalmics Technology Inc Inbone 11mm Ankle 3+ Implant Fixation Everlast [id number] - [id number] Implanted:Qty: 1 on 01/09/2024 by Sae Su MD at [facility] Left: Ankle MSA [employer] Inc 11/09/2029 [id number] / / [id number] Depuy Orthopaedics Inc Attune Cruciate Retain Cementless Knee Left 6 Narrow Component [id number] - [id number] Implanted:Qty: 1 on 07/01/2024 by Andre Rivera MD at [facility] Left: Knee Depuy Orthopaed[employer] Inc [id number] 05/13/2034 [id number] / / [id number] Depuy Orthopaedics Inc Tibial Baseplate Knee Porous Fixed Attune Affixium Size 6 Titanium [id number] - [id number] Implanted:Qty: 1 on 07/01/2024 by Andre Rivera MD at [facility] Left: Knee [employer]uy Orthopaedics Inc [id number] 07/13/2033 [id number] / / [id number] Depuy Orthopaedics Inc Insert Attune Left Medial Stabilized Size 6 7mm [id number] - [id number] Implanted:Qty: 1 on 07/01/2024 by Andre Rivera MD at [facility] Left: Knee [employer]uy Orthopaed[employer] Inc [id number] 06/12/2032 [id number] / / [id number] Explanted Type Area Helicopter Engineer Device Identifier Shelf Expiration Date Model / Serial / Lot [employer]aire [employer] 1624-509ns Steinmann 3/32mm 9in Trocar Point Pin Fixation Stainless Steel - [id number] Explanted:Qty: 1 on 07/09/2019 at [facility] Left: Ankle [employer] [id number] / / Nanophthalmics Technology Inc [id number] K-Wire 1.4mm 228mm Wire Fixation - [id number] Explanted:Qty: 4 on 07/01/2020 at [facility] Left: Ankle Simplebooklet [id number] / / MetaCDNaire [employer] Instruments [id number] Jesus .45in 9in 1 Trocar Point Orthopedic Wire Fixation - [id number] Explanted:Qty: 1 on 07/01/2020 at [facility] Left: Foot [employer] [id number] S / / Orthohelix Ign-311-11-075p Maxtorque 7mm 75mm Cannulated Self Drill Foot Ankle Petite Thread - [id number] Implanted:Qty: 1 on 07/09/2019 by Sae Su MD at [facility] Explanted:Qty: 1 on 07/01/2020 at [facility] Left: Ankle Orthohelix MSD-010-70 -075P / / Orthohelix [id number] Maxtorque 7mm 80mm Cannulated Self Drill Short Thread Screw Bone - [id number] Implanted:Qty: 1 on 07/09/2019 by Sae Su MD at [facility] Explanted:Qty: 1 on 07/01/2020 at [facility] Left: Ankle Orthohelix MSD-010-70 -[id number] / / Procedures Procedure Name Priority Date/Time Associated Diagnosis Comments XR KNEE LEFT 3 VIEWS Schedule Routine, Read Routine (OP Routine) 09/04/2024 8:08 AM CDT Aftercare following left knee joint replacement surgery XR FOOT LEFT 3 OR MORE VIEWS Schedule Routine, Read Routine (OP Routine) 07/10/2024 9:23 AM CDT Pain in left foot XR ANKLE LEFT 3 OR MORE VIEWS Schedule Routine, Read Routine (OP Routine) 07/10/2024 9:23 AM CDT Left ankle pain, unspecified chronicity SURGICAL PATHOLOGY Routine 07/01/2024 12:08 PM CDT Primary osteoarthritis of left knee XR KNEE LEFT 1 OR 2 VIEWS IP Routine 07/01/2024 11:02 AM CDT ANESTHESIA SPINAL BLOCK Routine 07/01/2024 9:33 AM CDT ARTHROPLASTY TOTAL KNEE 07/01/2024 8:24 AM CDT Primary osteoarthritis of left knee Special Needs Robotic, Depuy-Attune , Velys, Cooling Unit-[facility], 1 Liter Beta Rinse, Pt to Go Home APTT STAT 07/01/2024 7:15 AM CDT PROTIME-INR STAT 07/01/2024 7:15 AM CDT from Last 3 Months Results * XR Knee Left 3 Views (09/04/2024 8:08 AM CDT) Anatomical Region Laterality Modality Lower Extremities, Knee Left Digital Radiography Narrative 09/04/2024 8:59 AM CDT X-rays of the left knee are reviewed and interpreted and demonstrate no acute fractures subluxations or osseous changes. Status post TKA changes noted with implants in acceptable position. us Chris Lewis SALES ENABLEMENT MANAGER IMG XR PROCEDURES Final Result * XR Foot Left 3+ View (07/10/2024 9:23 AM CDT) Anatomical Region Laterality Modality Lower Extremities, Foot Left Computed Radiography 07/10/2024 11:4 9 AM CDT Impressions 07/10/2024 12:25 PM CDT 1. Overall unchanged appearance of total left ankle arthroplasty with healing calcaneal osteotomy. Dictated by: Wilian Kim M.D. The radiology attending physician has personally reviewed this study, and had reviewed and/or edited this written report and agrees with it. Electronically signed by: Derrick Mitchell M.D. Narrative 07/10/2024 12:25 PM CDT EXAMINATION: XR ANKLE LEFT 3 OR MORE VIEWS, XR FOOT LEFT 3 OR MORE VIEWS HISTORY: Left foot and ankle pain FINDINGS: 3 radiographs of the left ankle and 3 radiographs of the left foot are submitted for interpretation. Comparison is made to 05/08/2024 foot and ankle radiographs. Unchanged total left ankle arthroplasty. There is unchanged appearance of flattening of the talar dome. Osseous fusion of subtalar joint. Healing calcaneal osteotomy. No evidence of periprostatic lucency. The hardware is intact. There is extensive heterotopic ossification about the left ankle joint, overall unchanged in appearance from prior. There is mild to moderate midfoot osteoarthritis and mild metatarsophalangeal osteoarthritis. There is soft tissue swelling about the foot and ankle. Pes planovalgus. Small calcaneal heel spur. Procedure Note Derrick Mitchell MD - 07/10/2024 EXAMINATION: XR ANKLE LEFT 3 OR MORE VIEWS, XR FOOT LEFT 3 OR MORE VIEWS HISTORY: Left foot and ankle pain FINDINGS: 3 radiographs of the left ankle and 3 radiographs of the left foot are submitted for interpretation. Comparison is made to 05/08/2024 foot and ankle radiographs. Unchanged total left ankle arthroplasty. There is unchanged appearance of flattening of the talar dome. Osseous fusion of subtalar joint. Healing calcaneal osteotomy. No evidence of periprostatic lucency. The hardware is intact. There is extensive heterotopic ossification about the left ankle joint, overall unchanged in appearance from prior. There is mild to moderate midfoot osteoarthritis and mild metatarsophalangeal osteoarthritis. There is soft tissue swelling about the foot and ankle. Pes planovalgus. Small calcaneal heel spur. IMPRESSION: 1. Overall unchanged appearance of total left ankle arthroplasty with healing calcaneal osteotomy. Dictated by: Wilian Kim M.D. The radiology attending physician has personally reviewed this study, and had reviewed and/or edited this written report and agrees with it. Electronically signed by: Derrick Mitchell M.D. Sae Su MD IMG XR PROCEDURES Chata l Result * XR Ankle Left 3+ View (07/10/2024 9:23 AM CDT) Anatomical Region Laterality Modality Lower Extremities, Ankle Left Compute d Radiography 07/10/2024 11:4 9 AM CDT Impressions 07/10/2024 12:25 PM CDT 1. Overall unchanged appearance of total left ankle arthroplasty with healing calcaneal osteotomy. Dictated by: Wilian Kim M.D. The radiology attending physician has personally reviewed this study, and had reviewed and/or edited this written report and agrees with it. Electronically signed by: Derrick Mitchell M.D. Narrative 07/10/2024 12:25 PM CDT EXAMINATION: XR ANKLE LEFT 3 OR MORE VIEWS, XR FOOT LEFT 3 OR MORE VIEWS HISTORY: Left foot and ankle pain FINDINGS: 3 radiographs of the left ankle and 3 radiographs of the left foot are submitted for interpretation. Comparison is made to 05/08/2024 foot and ankle radiographs. Unchanged total left ankle arthroplasty. There is unchanged appearance of flattening of the talar dome. Osseous fusion of subtalar joint. Healing calcaneal osteotomy. No evidence of periprostatic lucency. The hardware is intact. There is extensive heterotopic ossification about the left ankle joint, overall unchanged in appearance from prior. There is mild to moderate midfoot osteoarthritis and mild metatarsophalangeal osteoarthritis. There is soft tissue swelling about the foot and ankle. Pes planovalgus. Small calcaneal heel spur. Procedure Note Derrick Mitchell MD - 07/10/2024 EXAMINATION: XR ANKLE LEFT 3 OR MORE VIEWS, XR FOOT LEFT 3 OR MORE VIEWS HISTORY: Left foot and ankle pain FINDINGS: 3 radiographs of the left ankle and 3 radiographs of the left foot are submitted for interpretation. Comparison is made to 05/08/2024 foot and ankle radiographs. Unchanged total left ankle arthroplasty. There is unchanged appearance of flattening of the talar dome. Osseous fusion of subtalar joint. Healing calcaneal osteotomy. No evidence of periprostatic lucency. The hardware is intact. There is extensive heterotopic ossification about the left ankle joint, overall unchanged in appearance from prior. There is mild to moderate midfoot osteoarthritis and mild metatarsophalangeal osteoarthritis. There is soft tissue swelling about the foot and ankle. Pes planovalgus. Small calcaneal heel spur. IMPRESSION: 1. Overall unchanged appearance of total left ankle arthroplasty with healing calcaneal osteotomy. Dictated by: Wilian Kim M.D. The radiology attending physician has personally reviewed this study, and had reviewed and/or edited this written report and agrees with it. Electronically signed by: Derrick Mitchell M.D. Sae Su MD IMG XR PROCEDURES Chata l Result * Surgical pathology (07/01/2024 12:08 PM CDT) Tissue (Bone Fragment(s),) 07/01/2024 10:04 AM CDT Narrative PATHOLOGY [facility] - 07/03/2024 11:56 AM CDT EPIC results best viewed via link to PDF [facility] Department of Pathology [address] [place] [address] Note to Patients: This report may contain a detailed description of human tissue sent by a health care provider to the laboratory for pathologic evaluation. The content of this report is essential for diagnosis and may provide important critical findings. This information may be unfamiliar to patients to review without a medical professional present. It is advised that the patient review this report in the presence of a health care provider who can answer questions and explain the details. Final Report Patient Name: CARLY LAWSON Address: [address] [place] [phone] Gender: M : 1965 (Age: 58) Service: Surgery Location: [facility] Hospital #: [id number] [facility] Taken: 07/01/2024 Received: 07/01/2024 Accessioned: 07/01/2024 Reported: 07/03/2024 Physician(s):Dr. Andre Rivera M.D. Diagnosis: Left knee, arthroplasty: - Degenerative joint disease consistent with osteoarthritis. Richard Torres M.D. Report Electronically Reviewed and Signed Out By Richard Torres M.D. 07/03/2024 11:56:47 Specimen(s) Received: A: Left knee bone fragments and tissue Microscopic Description: Sections show fragments of benign bone and cartilage. The overlying articular cartilaginous surface shows degenerative features including areas of erosion with fissures and clefting. The underlying medullary space shows some focal medullary fibrosis. No significant inflammatory infiltrate is seen. There is no evidence of malignancy. Sections from the soft tissue shows benign fibroconnective tissue only. Clinical History: Osteoarthritis of left knee. Left total knee arthroplasty. Gross Description: The container is labeled CARLY LAWSNO and left knee. It is a 7 x 6 x 6 cm in aggregate of irregularly-shaped fragments of bone and an approximate 10 cc aggregate of soft tissue consisting of adipose tissue, portions of menisci and some synovium. Recognizable pieces of bone include the tibial plateau and portions of femoral condyles. Some of the bone fragments are covered by articular cartilage showing varying degrees of degenerative changes that include eburnation, pitting and roughened granularity. Decalcified and represented in two cassettes. Dionisio Kaiser R.N., P.A./Radha Barajas M.D. REPORT IMAGES AND SCANNED DOCUMENTS, IF INCLUDED, ONLY VIEWABLE IN PDF VERSION OF REPORT The performance characteristics of some immunohistochemical stains, fluorescence in-situ hybridization tests and immunophenotyping by flow cytometry cited in this report (if any) were determined by the Surgical Pathology Department at [facility] as part of an ongoing senior quality assurance engineer program and in compliance with federally mandated regulations drawn from the Clinical Laboratory Improvement Act of 1988 (CLIA '88). Some of these tests rely on the use of analyte specific reagents and are subject to specific labeling requirements by the US Food and Drug Administration. Such diagnostic tests may only be performed in a facility that is certified by the Department of Health and Human Services as a high complexity laboratory under CLIA '88. The FDA has determined that such clearance or approval is not necessary. This test is used for clinical purposes. It should not be regarded as investigational or for research. Nevertheless, federal rules concerning the medical use of analyte specific reagents require that the following disclaimer be attached to the report: This test was developed and its performance characteristics determined by the Surgical Pathology Department [facility]. It has not been cleared or approved by the U. S. Food and Drug Administration. Note for decalcified specimens: This assay has not been validated on decalcified tissues. Results should be interpreted with caution given the possibility of false negativity on decalcified specimens Andre Rivera MD LAB PATHOLOGY ORDERABLES Final Result PATHOLOGY [facility] ([place]) [address] [place] [id number] * XR Knee Left 1 or 2 View (07/01/2024 11:02 AM CDT) Anatomical Region Laterality Modality Lower Extremities, Knee Left Computed Radiography 07/04/2024 2:22 PM CDT Narrative 07/04/2024 2:23 PM CDT EXAM DESCRIPTION: XR KNEE LEFT 1 OR 2 VIEWS REASON FOR STUDY: in pacu s/p left tka Post op FINDINGS: Two views of the left knee are submitted for interpretation and compared to prior 05/21/2024. New 2 component left total knee arthroplasty in near anatomic position. Soft tissue gas and swelling are present. No fracture. IMPRESSION: New 2 component left total knee arthroplasty in near anatomic position. THIS IS AN ELECTRONICALLY VERIFIED FINAL REPORT 07/04/2024 2:23 PM - Electronically signed by Ramu Franklin M.D. TH: TH Report ID: [id number] Reading Location: [id number] Procedure Note Ramu Franklin MD - 07/04/2024 EXAM DESCRIPTION: XR KNEE LEFT 1 OR 2 VIEWS REASON FOR STUDY: in pacu s/p left tka Post op FINDINGS: Two views of the left knee are submitted for interpretation and comparedto prior 05/21/2024. New 2 component left total knee arthroplasty in near anatomic position.Soft tissue gas and swelling are present. No fracture. IMPRESSION: New 2 component left total knee arthroplasty in near anatomic position. THIS IS AN ELECTRONICALLY VERIFIED FINAL REPORT 07/04/2024 2:23 PM - Electronically signed by Ramu Franklin M.D. TH: TH Report ID: [id number] Reading Location: [place] [address] Alexandra Shea SALES ENABLEMENT MANAGER IMG XR PROCEDURES Final Result * Spinal Block (07/01/2024 9:33 AM CDT) Narrative Jennifer Gomez CRNA - 07/01/2024 9:33 AM CDT Jennifer Gomez CRNA 07/01/2024 9:33 AM Spinal Block Patient location: OR Reason for block: primary anesthetic Staff: Supervising provider: Jake Gupta DO Placed by: STREAMING MEDIA SPECIALIST:Jennifer Gomez CRNA Procedure prep: Preprocedure checklist: patient identified, procedure contraindications assessed, site marked, procedure consent, surgical consent, IV checked, risks, benefits and alternatives discussed, monitors and equipment checked and timeout performed Patient position: sitting Procedure performed while patient: awake Monitoring: oximetry and blood pressure Prep solution: chlorhexadine/alcohol PPE: provider hat/mask, sterile gloves and sterile drape Skin infiltrated with lidocaine 1%: yes Spinal: Approach: midline Introducer used: yes Location: L4-5 Spinal injection: CSF demonstrated, no aspiration of heme and no paresthesias noted Number of attempts: 1 Spinal Needle: Needle type: pencil-tip Needle gauge: 25 G Needle length: 9 cm Assessment: Events: patient tolerated procedure well with no complications Jake Gupta DO ANESTHESIA ORDERABL ES Final Result * aPTT (07/01/2024 7:15 AM CDT) aPTT 33 28 - 38 sec JAYA SHEPHERD ([place]) Comment: Interpretive Data Heparin therapeutic range: 66.0 - 100.0 seconds. Range based on correlation with therapeutic heparin activity range of 0.3 - 0.7 Units/mL. Current interpretive data was last revised on 2022. Blood 07/01/2024 7:15 AM CDT 07/01/2024 7:20 AM CDT Andre Rivera MD LAB BLOOD ORDERABLES Fin al Result Performing Organization Address [facility] Co de Phone Number JYAA SHEPHERD ([place]) [address] [facility] [place] [address] * (ABNORMAL) Protime-INR (07/01/2024 7:15 AM CDT) PT 9.5(L) 9.7 - 13.0 sec JAYA SHEPHERD ([place]) INR 0.88(L) 0.90 - 1.20 JAYA SHEPHERD ([place]) Comment: Interpretive data Oral anticoagulant therapeutic ranges: Venous thromboembolism prophylaxis or treatment: 2.0-3.0 CARDIOLOGY Standard range: 2.0-3.0 High-intensity range: 2.5-3.5 Refer to indication-specific guidelines for appropriate target ranges for prosthetic heart valve replacement. Current interpretive data was last revised on 2019. Blood 07/01/2024 7:15 AM CDT 07/01/2024 7:20 AM CDT Andre Rivera MD LAB BLOOD ORDERABLES Fin al Result Performing Organization Address [facility] de Phone Number JAYA SHEPHERD ([place]) [address] [facility] [place] [place] [address] from Last 3 Months Insurance GROUP ADMIN[employer] [place] [facility] Member Subscriber Plan / Payer (Ef fective 2002-Present) Name:Carly Lawson Relation to Subscriber:Self Name:Carly Lawson Payer ID:[id number] ([facility]) Group ID:[id number] Type:FORMERLY [facility] HMO/PPO Address: [address] [place] [address] [facility] H[facility]/PPO Address: [facility] [address] [place] [address] MEDICARE GROUP ADMIN[employer]RAT[employer] [place] Member Subscriber Plan / Payer (Ef fective 2021-Present) Name:Carly Lawson Relation to Subscriber:Self Name:Carly Lawson Payer ID:[id number] Group ID:[id number] Type:COMMERCIAL Address: [address] [address] [place] [address] MEDICARE GROUP ADMINISTRATORS [place] Advance Directives For more information, please contact: [phone] * Full Code (Latest Code Status on [...] 5:22 PM 07/09/2019 5:25 AM Care Teams Firing Pin Gauger Relationship Specialty Start Date End Date Kristina Romero MD PCP - General 10/03/17 Chloe Lewis, 911 OPERATOR Head Usher Physical Therapy 10/20/17 Susan Pro, PT Physical Therapist Physical Therapy 11/06/17 Oral Painter, OT Occupational Therapist Occupational Therapy 06/27/24 Andre Rivera MD [address] [place] [address] DR HUNTER [address] [place] [address] Surgeon Orthopedic Surgery 07/01/24
[2024-09-24 19:05] LABS: Hematocrit 47.5 % (42.0-52.0); Hemoglobin 15.3 g/dL (14.0-18.0); Immature Granulocyte Percent A 0.4 % (0-0.5); Lymphocytes Absolute Auto 2.07 K/mm3 (0.9-3.2); Mean Corpuscular HGB Conc 32.2 g/dl (32-36); Mean Corpuscular Hemoglobin 29.4 pg (26-34); Mean Corpuscular Volume 91.2 fl (80-100); Nucleated Red Blood Cells Absolute Auto 0.000 K/mm3 (0.0-0.012); Nucleated Red Blood Cells Perc 0.0 % (0.0-0.2); Platelet Count Result 259 k/mm3 (150-375); Red Blood Count 5.21 M/mm3 (4.6-6.20); White Blood Count 12.0 K/mm3 (4.5-10.0)
[2024-09-24 19:41] LABS: Uric Acid 7.6 mg/dL (3.5-8.5)
== END 2024-09-24 13:28 | disposition home or self-care (01) ==
LOC: ANHGOSHLAB 13:27
PROVIDERS: PCP Family Medicine; Visit Provider Nurse Practitioner Family
DX: M1A.00X0 Idiopathic chronic gout, unspecified site, without tophus (tophi) (principal)
CPT/HCPCS: 36415; 84550; 85025

== ENCOUNTER 2024-10-16 08:20 | Outpatient (CLI) | payer MEDICARE, SELFPAY ==
--- OUTSIDE RECORDS SUMMARY | 2017-11-27 19:00 | XMS_ITS | Continuity of Care Document ---
Author Organization [facility] Address [address] [place] [address] Phone Care Team Providers Care Director Of Employer Services Name Role Phone Administrative, Provider Unavailable Unavail able Allergies, Adverse Reactions, Alerts Substance Reaction Status Criticality No Known Drug Allergies Active No I nformation Procedures Procedure Date Xray Copy X-ray exam shoulder minimum 2 views Independent Medical Examination GABRIEL X-ray exam shoulder minimum 2 views Independent Medical Examination GABRIEL Advance Directives Directive Yes / No Effective Date File Name No Information Encounters Encounter Description Practice Location Reason(s) For Visit Diagnoses Date Provider Providers Copied on Encounter [facility], [address], [id number], [place] tel:[phone] [facility] No Information 8 Administrative Provider. [address] [facility], [facility] [address], [place], [place], [id number], [place]. tel:[phone] [facility], [address] [place] [address], [id number], [place] tel:[phone] [facility] No Information Blank Ramos. [address] [facility], [address], [place], [place], [id number], [place]. tel:[phone] Independent Medical Examination [facility], [address], [id number], tel:[phone] [facility] right shoulder (chief complaint) Pain in right shoulder 8 Blank Ramos. [address] [facility], [address], [id number], [place]. tel:[phone] Independent Medical Examination GAB[facility], [address], [id number], tel:[phone] [facility] right shoulder (chief complaint) Pain in right shoulder 7 Blank Ramos. [address], [id number], [place]. tel:[phone] Family History Family Member Type Diagnosis Age At Onset Problem (finding) Family history of gout Problem (finding) Family history of Diabe gary mellitus Problem (finding) Family history of Arthr itis Problem (finding) Family history of Cance r, unknown Payers Payer name Insurance type Covered republican ID Authoriza tion(s) No Information Social History Type Description Quantity Date Captured Comments Sex Male Smoking Status No Information Chief Complaint And Reason For Visit No Information Reason For Referral Reason For Referral No Information Plan Of Treatment Date Type Action Status Referral Ordered: X-ray exam shoulder minimum 2 views RT ordered Patient Education Body Mass Index: After Your Visit completed History Of Present Illness Encounter Date Complaint History Of Prese nt Illness shoulder Stephen presents to the office for right shoulder complaints. right denisa Mitchell presents to the office for right shoulder complaints. Functional Status Date Functional Assessmen t No Information Instructions Date Instruction Additional Infor mation No Information Assessments Type Assessment Date No Information Patient Care Teams Name Effective Dates (start - stop) Status Members No Information
--- OUTSIDE RECORDS SUMMARY | 2024-10-16 08:34 | XMS_ITS | Clinical Summary ---
Author Organization [facility] Address [address] [place] [address] Care Team Providers Care Sow Farm Technician Name Role Phone Kristina Romero MD Primary Care Provider Chloe Lewis PTA Unavailable Unavailable Susan Pro PT Unavailable Unavailable Oral Painter OT Unavailable Unavailable Andre Rivera MD Unavailable [phone] Allergies No known active allergies Medications allopurinoL [...] & Plan (09/18/2020 11:58 AM CDT): Mr. Stephen Shaikh is a 55 y.o. male with [...] (09/17/2020): Added automatically from request for surgery [id number] Assessment & Plan (12/21/2021 9:08 AM ELEMENTARY SCHOOL BAND DIRECTOR): - Pt completed 1 year of treatment [...] then discuss stopping. - Refill sent to [facility] - Labs today for monitoring [...] (06/11/2020): Added automatically from request for surgery [id number] Arthritis of left subtalar joint 02/07/2019 Overview (02/07/2019): Added automatically from request for surgery [id number] Encounter for preadmission testing 10/31/2017 Primary osteoarthritis of right knee 07/25/2016 Resolved Problems Problem Noted Date Diagnosed Date Resolved Date Acute pain of left knee 07/21/2020 06/0 10/2024 Primary osteoarthritis of left knee 07/21/2020 07/22/2024 Effusion of left knee 07/21/20202024 Encounters Date Type Department Care Team Description 09/04/2024 8:00 AM CDT Office Visit [facility] [address] [place] [address] [address] [place] [address] Chris Lewis NP Aftercare following left knee joint replacement surgery (Primary Dx) 09/04/2024 7:39 AM CDT - 09/04/2024 11:59 PM CDT Hospital Encounter [facility] [address] [place] [address] [address] [place] [address] Discharge Disposition: Discharge to home or self care 07/23/2024 11:45 AM CDT Telemedicine [facility] [address] [place] [address] [address] [place] [address] Yajaira Roblero PA Aftercare following left knee joint replacement surgery (Primary Dx) from Last 3 Months Immunizations [...] on file Legal Sex 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 Author CCM Chronic Pain Care Plan Chronic Care Management Improving( 9:30 AM ELEMENTARY SCHOOL BAND DIRECTOR) Pau Perez RN Note: Problem: Chronic Pain Goals: 1. Minimize further functional decline 2. Maximize quality of life 3. Control pain Strategies: - Activity/exercise program recommendation - Conservative stepwise pain medicine strategy with multi-disciplinary approach - Recommend healthy lifestyle strategies and compensatory methods as needed Medical Devices Implanted Type Area Senior Air Director Device Identifier Shelf Expiration Date Model / Serial / Lot Orthohelix Maxtorque 7mm 47.5mm Cannulated Self Drill Foot Ankle Petite [id number] - [id number] Implanted:Qty: 1 on 01/09/2024 by Sae Su MD at [facility] Screw Left: Ankle Orthohelix MSD-010-70- 475P / / Orthohelix Screw Bone Maxtorque Short Thread L47.5 Mm Od5.5 Mm Foot Ankle Self Drill Cannulated Nonsterile [id number] - [id number] Implanted:Qty: 1 on 01/09/2024 by Sae Su MD at [facility] Screw Left: Ankle Orthohelix MSD-010-55- 475S / / Depuy [employer]opaed[employer] Inc [id number] Smartset High Viscosity Cement 40gm Bone Gentamicin - [id number] Implanted:Qty: 1 on 10/30/2017 by Andre Rivera MD at [facility] Right: Knee [employer]uy [employer]opaed[employer] Inc 11/12/2018 [id number] / / [id number] Depuy Orth[employer]ed[employer] Inc [id number] Smartset High Viscosity Cement 40gm Bone Gentamicin - [id number] Implanted:Qty: 1 on 10/30/2017 by Andre Rivera MD at [facility] Right: Knee [employer] Inc 11/12/2018 [id number] / / [id number] Depuy [employer]ed[employer] Inc [id number] Attune Cemented Posterior Stabilize Knee Right 6 Narrow Component - [id number] Implanted:Qty: 1 on 10/30/2017 by Andre Rivera MD at [facility] Right: Knee [employer] Inc 06/13/2027 [id number] / / [id number] Depuy Orthopaed[employer] Inc [id number] Attune S+ Cement Fix Bearing Knee 6 Baseplate Tibial - [id number] Implanted:Qty: 1 on 10/30/2017 by Andre Rivera MD at [facility] Right: Knee [employer] 04/13/2027 [id number] / / [id number] Depuy [employer] Inc [id number] Attune 8mm Posterior Stabilize Fix Bearing Knee 6 Insert Tibial - [id number] Implanted:Qty: 1 on 10/30/2017 by Andre Rivera MD at [facility] Right: Knee [employer] Inc 05/13/2022 [id number] / / [id number] Rankin [employer] Inc [id number] Mini Ignite Power Mix Injectable Graft 4ml Synthetic Tissue - [id number] - [id number] Implanted:Qty: 1 on 07/09/2019 by Sae Su MD at [facility] Left: Ankle [employer] 06/02/2023 [id number] / [id number] / [employer] Inc [id number] Infinity Ankle 4 Long Tray Tibial Adaptis - [id number] Implanted:Qty: 1 on 07/01/2020 by Sae Su MD at [facility] Left: Ankle [employer] [id number] 11/26/2026 [id number] / / [id number] [employer] Inc [id number] Taldome Infinity Adaptis Flatcut Sz3 - [id number] Implanted:Qty: 1 on 07/01/2020 by Sae Su MD at [facility] Left: Ankle [employer] Inc [id number] 05/21/2028 [id number] / / [id number] [employer] Inc [id number] Inbone 9mm Ankle 3+ Implant Fixation Everlast - [id number] Implanted:Qty: 1 on 07/01/2020 by Sae Su MD at [facility] Left: Ankle Visiogen [employer] Inc [id number] 05/28/2027 [id number] / / [id number] Allosource [id number] 23mm Wedge Frozen Spine Graft Bone Tricortical Ilium - [id number] Implanted:Qty: 1 on 07/01/2020 by Sae Su MD at [facility] Left: Foot Allosource 01/27/2025 [id number] / / [id number] [employer]aire [employer] 1620-509ns Steinmann 5/64in 9in Trocar Point One End Pin Fixation Stainless - [id number] Implanted:Qty: 1 on 07/01/2020 by Sae Su MD at [facility] Left: Foot [employer] [id number] / / Axogen Inc Avance 1-2mm 70mm Allograft Graft Nerve Sterile [id number] - S0 - [id number] Implanted:Qty: 1 on 04/04/2023 by Mani Oseguera MD at [facility] Left: Ankle Axogen Inc 07/13/2025 [id number] / 0 / [id number] PayScale Inc Inbone 11mm Ankle 3+ Implant Fixation Everlast [id number] - [id number] Implanted:Qty: 1 on 01/09/2024 by Sae Su MD at [facility] Left: Ankle [employer]iogen [employer] Inc 11/09/2029 [id number] / / [id number] Depuy Orthopaedics Inc Attune Cruciate Retain Cementless Knee Left 6 Narrow Component [id number] - [id number] Implanted:Qty: 1 on 07/01/2024 by Andre Rivera MD at [facility] Left: Knee [employer]uy [employer]ed[employer] Inc [id number] 05/13/2034 [id number] / / [id number] Depuy [employer]ed[employer] Inc Tibial Baseplate Knee Porous Fixed Attune Affixium Size 6 Titanium [id number] - [id number] Implanted:Qty: 1 on 07/01/2024 by Andre Rivera MD at [facility] Left: Knee [employer] Orthopaed[employer] Inc [id number] 07/13/2033 [id number] / / [id number] Depuy Orth[employer]ed[employer] Inc Insert Attune Left Medial Stabilized Size 6 7mm [id number] - [id number] Implanted:Qty: 1 on 07/01/2024 by Andre Rivrea MD at [facility] Left: Knee [employer] Orth[employer]ed[employer] Inc [id number] 06/12/2032 [id number] / / [id number] Explanted Type Area Senior Air Director Device Identifier Shelf Expiration Date Model / Serial / Lot [employer] 1624-509ns Steinmann 3/32mm 9in Trocar Point Pin Fixation Stainless Steel - [id number] Explanted:Qty: 1 on 07/09/2019 at [facility] Left: Ankle [employer] [id number] / / Eco[employer] Inc [id number] K-Wire 1.4mm 228mm Wire Fixation - [id number] Explanted:Qty: 4 on 07/01/2020 at [facility] Left: Ankle [employer] Inc [id number] / / [employer] 1600-9455ns Jesus .45in 9in 1 Trocar Point Orthopedic Wire Fixation - [id number] Explanted:Qty: 1 on 07/01/2020 at [facility] Left: Foot [employer] [id number] S / / Orthohelix [id number] Maxtorque 7mm 75mm Cannulated Self Drill Foot Ankle Petite Thread - [id number] Implanted:Qty: 1 on 07/09/2019 by Sae Su MD at [facility] Explanted:Qty: 1 on 07/01/2020 at [facility] Left: Ankle Orthohelix MSD-010-70 -075P / / Orthohelix [id number] Maxtorque 7mm 80mm Cannulated Self Drill Short Thread Screw Bone - [id number] Implanted:Qty: 1 on 07/09/2019 by Sae Su MD at [facility] Explanted:Qty: 1 on 07/01/2020 at [facility] Left: Ankle Orthohelix MSD-010-70 -[id number] / / Procedures Procedure Name Priority Date/Time Associated Diagnosis Comments XR KNEE LEFT 3 VIEWS Schedule Routine, Read Routine (OP Routine) 09/04/2024 8:08 AM CDT Aftercare following left knee joint replacement surgery from Last 3 Months Results * XR Knee Left 3 Views (09/04/2024 8:08 AM CDT) Anatomical Region Laterality Modality Lower Extremities, Knee Left Digital Radiography Narrative 09/04/2024 8:59 AM CDT X-rays of the left knee are reviewed and interpreted and demonstrate no acute fractures subluxations or osseous changes. Status post TKA changes noted with implants in acceptable position. Chris Lewis NP IMG XR PROCEDURES Final Result from Last 3 Months Insurance GROUP [facility] Member Subscriber Plan / Payer (Ef fective 2002-Present) Name:Stephen Shaikh Relation to Subscriber:Self Name:Stephen Shaikh Payer ID:[id number] ([employer]IC) Group ID:[id number] Type:CIG[employer] HMO/PPO Address: [address] [place] [address] [facility] [facility] [employer] HMO/PPO Address: [facility] [address] [place] [address] MEDICARE GROUP [facility] Member Subscriber Plan / Payer (Ef fective 2021-Present) Name:Neel Stephen Annie Relation to Subscriber:Self Name:Stephen Shaikh Annie Payer ID:[id number] Group ID:[id number] Type:COMMERCIAL Address: [address] [address] [place] [address] MEDICARE GROUP ADMINISTRATORS [place] Advance Directives For more information, please contact: [phone] * Full Code (Latest Code Status on [...] 5:22 PM 07/09/2019 5:25 AM Care Teams Sow Farm Technician Relationship Specialty Start Date End Date Kristina Romero MD PCP - General 10/03/17 Chloe Lewis, RV DETAILER Metal Fitter Physical Therapy 10/20/17 Susan Pro, PT Physical Therapist Physical Therapy 11/06/17 Oral Painter, OT Occupational Therapist Occupational Therapy 06/27/24 Andre Rivera MD [address] [place] [address] [place] [address] Surgeon Orthopedic Surgery 07/01/24
--- OUTSIDE RECORDS SUMMARY | 2024-10-16 08:34 | XMS_ITS | Encounter Summary ---
Author Organization [facility] Address [address] [place] [address] Care Team Providers Care Purchasing Coordinator Name Role Phone Kristina Romero MD Primary Care Provider Chloe Lewis PLUMBING ENGINEER Unavailable Unavailable Ssuan Pro PT Unavailable Unavailable Oral Painter OT Unavailable Unavailable Andre Rivera MD Unavailable [phone] Encounter Details Date Type Department Care Team (Late st Contact Info) Description 10/20/2020 Telephone [facility] [place] [facility] [address] [facility] [address] [place], [place] [id number] Shandra Smith MD PhD [address] [facility] [phone] [place], [place] [id number] Social History Tobacco Use Types Packs/Day Years [...] on file 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 Gender Identity Not on file Sexual Orientation Not on file documented as of this encounter Plan of Treatment Not on file documented as of this encounter Visit Diagnoses Not on filedocumented in this encounter Care Teams Purchasing Coordinator Relationship Specialty Start Date End Date Kristina Romero MD PCP - General 10/03/17 Chloe Lewis, PLUMBING ENGINEER Gold Buyer Physical Therapy 10/20/17 Susan Pro, PT Physical Therapist Physical Therapy 11/06/17 Oral Painter, OT Occupational Therapist Occupational Therapy 06/27/24 Andre Rivera MD [address] [place] [address] DR HUNTER [address] [place] [address] Surgeon Orthopedic Surgery 07/01/24 documented as of this encounter
--- OUTSIDE RECORDS SUMMARY | 2024-10-16 08:34 | XMS_ITS | Encounter Summary ---
Author Organization [facility] Address [address] [place] [address] Phone Care Team Providers Care Filler Mixer Name Role Phone Kristina Romero MD Primary Care Provider Chloe Lewis WASHER MACHINE Unavailable Unavailable Susan Pro PT Unavailable Unavailable Oral Painter OT Unavailable Unavailable Andre Rivera MD Unavailable [phone] Encounter Details Date Type Department Care Team (Late st Contact Info) Description 12/28/2022 Orders Only [facility] [phone] Scanning, Provider Social History Tobacco Use Types [...] on file Legal Sex Male 3:47 PM 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 Author CCM Chronic Pain Care Plan Chronic Care Management Improving( 9:30 AM ARCHITECTURAL PRACTICE MANAGER) Pau Perez, RN Note: Problem: Chronic [...] on filedocumented in this encounter Care Teams Filler Mixer Relationship Specialty Start Date End Date Kristina Romero MD PCP - General 10/03/17 Chloe Lewis, WASHER MACHINE Software Controls Engineer Physical Therapy 10/20/17 Susan Pro, PT Physical Therapist Physical Therapy 11/06/17 Oral Painter, OT Occupational Therapist Occupational Therapy 06/27/24 Andre Rivera MD [address] [place] [address] [place] [address] Surgeon Orthopedic Surgery 07/01/24 documented as of this encounter
--- OUTSIDE RECORDS SUMMARY | 2024-10-16 08:34 | XMS_ITS | Clinical Summary ---
Author Organization [facility] Address [address] [facility], [address] [address] Phone Care Team Providers Care Websphere Commerce Developer Name Role Phone Kristina Romero MD Primary [...] 108.9 kg (240 lb) 04/15/2022 9:00 AM CAMPGROUND CLEANING ATTENDANT Height 180.3 cm (5' 11) 04/15/2022 9:00 AM CAMPGROUND CLEANING ATTENDANT Body Mass Index 33.47 04/15/2022 9:00 AM CAMPGROUND CLEANING ATTENDANT Plan of Treatment Health Maintenance Due Date Last Done Comments Hepatitis C Virus (HCV) Screening 1965 Cologuard 07/16/2008 Immunochemical Fecal Occult Blood 07/16/2008 Pneumococcal Immunization (50+ years) (1 of 1 - PCV) 07/16/2013 Zoster Immunization (1 of 2) 07/16/2013 Influenza Immunization (#1) 10/14/202411/13, 11/14/2020, 11/23/2019, Additional history exists SARS-COV-2 Immunization (2024- season) 2024 11/27/2021, 09/10/2021, 12/09/2020, Additional history exists Colonoscopy [...] Group ID:[id number] Type:Not on file Address: [address] [address] [place] [address] Care Teams Websphere Commerce Developer Relationship Specialty Start Date End Date Kristina Romero MD PCP - General Family Medicine 12/23/21
[2024-10-16 13:33] LABS: Hematocrit 47.4 % (42.0-52.0); Hemoglobin 15.2 g/dL (14.0-18.0); Immature Granulocyte Percent A 0.5 % (0-0.5); Lymphocytes Absolute Auto 2.33 K/mm3 (0.9-3.2); Mean Corpuscular HGB Conc 32.1 g/dl (32-36); Mean Corpuscular Hemoglobin 29.0 pg (26-34); Mean Corpuscular Volume 90.5 fl (80-100); Nucleated Red Blood Cells Absolute Auto 0.000 K/mm3 (0.0-0.012); Nucleated Red Blood Cells Perc 0.0 % (0.0-0.2); Platelet Count Result 213 k/mm3 (150-375); Red Blood Count 5.24 M/mm3 (4.6-6.20); White Blood Count 7.5 K/mm3 (4.5-10.0)
[2024-10-16 13:35] LABS: Alanine Aminotransferase 32 U/L (6-50); Albumin Level 4.3 g/dL (3.5-5.1); Alkaline Phosphatase 69 U/L (38-126); Anion Gap 8 mmol/L (4-12); Aspartate Amino Transferase 58 U/L (17-59); Bilirubin,Total 0.5 mg/dL (0.2-1.3); Blood Urea Nitrogen 17 mg/dL (9-20); Calcium 9.2 mg/dL (8.4-10.2); Carbon Dioxide 27 mmol/L (22-30); Chloride 105 mmol/L (98-107); Cholesterol 98 mg/dL (0-200); Estimated Glomerular Filt Rate > 60; Glucose 103 mg/dL (65-110); HDL Direct 43 mg/dL; Potassium 4.5 mmol/L (3.4-5.0); Sodium 140 mmol/L (137-145); Total Protein 7.6 g/dL (6.3-8.2); Triglycerides 45 mg/dL (<150)
[2024-10-16 14:10] LABS: Prostate Specific Antigen 3.2 ng/mL (< OR = 4.0)
[2024-10-16 18:08] LABS: Hemoglobin A1C 6.1 % (<5.7)
== END 2024-10-16 08:21 | disposition home or self-care (01) ==
LOC: ANHGOSHLAB 08:20
PROVIDERS: PCP Nurse Practitioner Family; Visit Provider Family Medicine
DX: R73.03 Prediabetes (principal); Z12.5 Encounter for screening for malignant neoplasm of prostate; Z79.899 Other long term (current) drug therapy; G25.81 Restless legs syndrome; G47.33 Obstructive sleep apnea (adult) (pediatric); M1A.9XX0 Chronic gout, unspecified, without tophus (tophi); E55.9 Vitamin D deficiency, unspecified; Z13.220 Encounter for screening for lipoid disorders
CPT/HCPCS: 36415; 80053; 80061; 82306; 83036; 84153; 85025; G0103